=== PATIENT | male | born 1990 | race Caucasian/White ===

== ENCOUNTER 2016-11-04 18:56 | Emergency (ER) | payer SELFPAY ==
[2016-11-04] MEDS ORDERED: PENICILLIN V POTASSIUM 500 MG TABLET PO ONE (19:19)
--- NOTE | 2016-11-04 19:23 | ER Document Report ---
HPI - HPI Patient complains to provider of: sore throat, abscess Onset: Other - 4 days Onset/Duration: Persistent Quality of pain: Achy Severity: Severe Pain Level: 5 Context: Patient presents to the emergency department with complaints of sore throat and abscess under his right arm for the past 4 days. He reports that the abscess is better. His reports she squeezed it and got some drainage out of it. He reports the sore throat is worse. He reports fever of 102 yesterday no fever today but he took Tylenol at 11:00. Denies diarrhea but reports vomited once or twice this past week. Unknown exposure to strep. Associated Symptoms: Fever, Vomiting, Sore throat Exacerbated by: Denies Relieved by: Denies Similar symptoms previously: No Recently seen / treated by doctor: No - DERM Skin Color: Normal Past Medical History - General Information source: Patient - Social History Smoking Status: Current Every Day Smoker Cigarette use (# per day): Yes Chew tobacco use (# tins/day): No Frequency of alcohol use: Rare Drug Abuse: None Occupation: [employer] Lives with: Family Family History: Reviewed & Not Pertinent Patient has suicidal ideation: No Patient has homicidal ideation: No - Past Medical History Cardiac Medical History: Denies: Hx Coronary Artery Disease, Hx Hypertension Pulmonary Medical History: Reports: Hx Asthma Endocrine Medical History: Denies: Hx Diabetes Mellitus Type 1, Hx Diabetes Mellitus Type 2 Surgical Hx: Negative Past Surgical History: Denies: Hx Tonsillectomy - Immunizations Hx Diphtheria, Pertussis, Tetanus Vaccination: Yes Vertical Provider Document - CONSTITUTIONAL Agree With Documented VS: Yes Exam Limitations: No Limitations General Appearance: WD/WN, No Apparent Distress - INFECTION CONTROL TRAVEL OUTSIDE OF THE [place] IN LAST 30 DAYS: No - HEENT HEENT: Atraumatic, Normocephalic, Pharyngeal Erythema - Opens mouth wide, no peritonsillar abscess, clear voice. negative: Pharyngeal Exudate - NECK Neck: Normal Inspection, Supple, Lymphadenopathy-Left - submandibular tenderness , Lymphadenopathy-Right - RESPIRATORY Respiratory: Breath Sounds Normal, No Respiratory Distress O2 Sat by Pulse Oximetry: 96 - CARDIOVASCULAR Cardiovascular: Regular Rate - GI/ABDOMEN Gastrointestinal: Abdomen Soft - MUSCULOSKELETAL/EXTREMETIES Musculoskeletal/Extremeties: MAEW, FROM - NEURO Level of Consciousness: Awake, Alert, Appropriate Motor/Sensory: No Motor Deficit - DERM Integumentary: Warm, Dry. negative: Abscess - slight erythema under right arm with opening in the center, no swelling, no warmth, no induration Course - Re-evaluation Re-evalutation: 11/04/16 Patient was instructed on penicillin for the sore throat. He reports he was allergic to amoxicillin when he was little but is no longer allergic and has taken penicillin before without problems. He was instructed on signs and symptoms of an abscess instructed to monitor the site and return to the ER for any concerns. He verbalized understanding to all instructions. - Vital Signs Vital signs: Temp Pulse Resp BP Pulse Ox 98.2 F 99 20 170/82 H 96 11/04/16 19:01 11/04/16 19:01 11/04/16 19:01 11/04/16 19:01 11/04/16 19:01 Discharge - Discharge Clinical Impression: Sore throat, elevated blood pressure Condition: Stable Disposition: HOME, SELF-CARE Instructions: Sore Throat ([facility]), Penicillin V K ([facility]), Abscess ([facility]) Additional Instructions: *You have been evaluated for a sore throat, pharyngitis *Monitor your blood pressure. Your blood pressure was elevated today. This may be because you were anxious, in pain or because you need medication. It is important to follow up with your primary care provider for full evaluation. *Take medication as prescribed *Warm salt water gargles and throat lozenges for comfort *Change toothbrush after two days of antibiotics *Do not let anyone drink/eat after you *Good hand washing *Monitor the site under your arm for increased swelling pain redness or signs of an abscess *Follow-up with a primary care provider next week *Return to ED for worsening condition change, needs Prescriptions: Penicillin V Potassium [Penicillin Vk 500 mg Tablet] 500 mg PO BID #20 tablet Forms: Elevated Blood Pressure
[2016-11-04 20:19] VITALS: BP 149/71
== END 2016-11-04 19:46 | disposition home or self-care (01) ==
LOC: ER 18:56
DX: J02.9 Acute pharyngitis, unspecified (principal); R03.0 Elevated blood-pressure reading, without diagnosis of hypertension; L02.411 Cutaneous abscess of right axilla; F17.210 Nicotine dependence, cigarettes, uncomplicated
CPT/HCPCS: 99282

== ENCOUNTER 2016-11-26 16:21 | Emergency (ER) | payer SELFPAY ==
--- NOTE | 2016-11-26 16:52 | ER Document Report ---
ED Medical Screen (RME) - General Chief Complaint: Nausea/Vomiting/Diarrhea Stated Complaint: VOMITING,DIARRHEA Notes: Nausea vomiting diarrhea for 3 days also tachycardic. I greeted and performed a rapid initial assessment of this patient. Comprehensive ED assessment and evaluation of the patient, analysis of test results and completion of the medical decision making process will be conducted by additional ED providers. TRAVEL OUTSIDE OF THE [place] IN LAST 30 DAYS: No - Related Data Allergies/Adverse Reactions: amoxicillin [Amoxicillin] Allergy (Verified 11/04/16 19:01) Past Medical History - Past Medical History Cardiac Medical History: Denies: Hx Coronary Artery Disease, Hx Hypertension Pulmonary Medical History: Reports: Hx Asthma Endocrine Medical History: Denies: Hx Diabetes Mellitus Type 1, Hx Diabetes Mellitus Type 2 Renal/ Medical History: Denies: Hx Peritoneal Dialysis Past Surgical History: Denies: Hx Tonsillectomy - Immunizations Hx Diphtheria, Pertussis, Tetanus Vaccination: Yes
[2016-11-26] MEDS ORDERED: NORMAL SALINE INJ/PF 0.9% 10 ML SDV IV ONE (16:53)
[2016-11-26 17:30] LABS: APPEARANCE,URINE SLIGHTLY-CLOUDY; BILIRUBIN,URINE NEGATIVE (NEGATIVE); GLUCOSE, URINE NEGATIVE (NEGATIVE); KETONES,URINE NEGATIVE (NEGATIVE); LEUKOCYTE ESTERASE,URINE NEGATIVE (NEGATIVE); NITRITE,URINE NEGATIVE (NEGATIVE); PROTEIN,URINE 30 mg/dL (NEGATIVE); URINE SPECIFIC GRAVITY 1.031; UROBILINOGEN,URINE NEGATIVE mg/dL (<2.0)
[2016-11-26 17:45] LABS: ALANINE AMINOTRANSFERASE 78 U/L (21-72); ALBUMIN 4.7 g/dL (3.5-5.0); ALKALINE PHOSPHATASE 41 U/L (38-126); ANION GAP 16 (5-19); ASPARTATE AMINO TRANSFERASE 40 U/L (17-59); BILIRUBIN,TOTAL 0.9 mg/dL (0.2-1.3); BLOOD UREA NITROGEN 16 mg/dL (7-20); CARBON DIOXIDE 23 mmol/L (22-30); CHLORIDE 102 mmol/L (98-107); CREATININE RESULT 0.84 mg/dL (0.52-1.25); GLUCOSE 103 mg/dL (75-110); POTASSIUM 4.5 mmol/L (3.6-5.0); SODIUM 140.6 mmol/L (137-145)
[2016-11-26 18:05] LABS: ABSOLUTE EOSINOPHILS # (AUTO) 0.1 10^3/uL (0.0-0.6); ABSOLUTE LYMPHOCYTES (AUTO) 1.8 10^3/uL (0.5-4.7); ABSOLUTE MONOCYTES (AUTO) 1.3 10^3/uL (0.1-1.4); ABSOLUTE NEUT (AUTO) 7.1 10^3/uL (1.7-8.2); BASOPHILS % (AUTO) 0.1 % (0-2); EOSINOPHILS % (AUTO) 1.2 % (0-6); HEMATOCRIT 46.6 % (37.9-51.0); HEMOGLOBIN 15.5 g/dL (13.5-17.0); HGB HCT DIFFERENCE -0.1; LYMPHOCYTES % (AUTO) 17.7 % (13-45); MEAN CORPUSCULAR HEMOGLOBIN 27.2 pg (27.0-33.4); MEAN CORPUSCULAR HGB CONC 33.3 g/dL (32.0-36.0); MEAN CORPUSCULAR VOLUME 82 fl (80-97); MONOCYTES % (AUTO) 12.7 % (3-13); RED CELL DISTRIBUTION WIDTH 13.2 % (11.5-14.0); SEGMENTED NEUTROPHILS % (AUTO) 68.3 % (42-78); WHITE BLOOD COUNT 10.4 10^3/uL (4.0-10.5)
[2016-11-26] MEDS ORDERED: ONDANSETRON HCL INJ/PF 4 MG/2 ML SDV IV ONE (19:17)
[2016-11-26] MEDS ORDERED: LIDOCAINE 2% VISCOUS SOLN 20 ML UDCUP PO ONE (19:18)
[2016-11-26] MEDS ORDERED: MAG HYDROX/AL HYDROX/SIMETH SUSP 30 ML UDCUP PO ONE (19:18)
--- NOTE | 2016-11-26 19:18 | ER Document Report ---
ED GI/ - General Chief Complaint: Nausea/Vomiting/Diarrhea Stated Complaint: VOMITING,DIARRHEA Notes: patient is a 26 year old male p/w nausea with vomiting and diarrhea for the past 4 days. States he was in [place] and they wentout to eat, he had pork ribs. the next Am, states when his symptoms started. Patient states he has had generalized body aches over the past two days and difficulty tolerating po. admits to crmaping abdominal pain in the umbilicus region. denies any hematochezia or hematemesis Past medical history significant for anger issues which he previously been taking BuSpar for Denies any surgical history Social history admits to rare alcohol use. Former smoker but denies any drug use. No allergies TRAVEL OUTSIDE OF THE [place] IN LAST 30 DAYS: No - Related Data Allergies/Adverse Reactions: amoxicillin [Amoxicillin] Allergy (Verified 11/04/16 19:01) Past Medical History - General Information source: Patient - Social History Smoking Status: Former Smoker Family History: Reviewed & Not Pertinent Patient has suicidal ideation: No Patient has homicidal ideation: No - Past Medical History Cardiac Medical History: Denies: Hx Coronary Artery Disease, Hx Hypertension Pulmonary Medical History: Reports: Hx Asthma Endocrine Medical History: Denies: Hx Diabetes Mellitus Type 1, Hx Diabetes Mellitus Type 2 Renal/ Medical History: Denies: Hx Peritoneal Dialysis Surgical Hx: Negative Past Surgical History: Denies: Hx Tonsillectomy - Immunizations Hx Diphtheria, Pertussis, Tetanus Vaccination: Yes Review of Systems - Review of Systems Constitutional: No symptoms reported EENT: No symptoms reported Cardiovascular: No symptoms reported Respiratory: No symptoms reported Gastrointestinal: See HPI Genitourinary: No symptoms reported Male Genitourinary: No symptoms reported Musculoskeletal: No symptoms reported Skin: No symptoms reported Hematologic/Lymphatic: No symptoms reported Neurological/Psychological: No symptoms reported Physical Exam - Vital signs Vitals: Resp 20 11/26/16 18:56 - Notes Notes: PHYSICAL EXAM GENERAL: Alert, interacts well. HEAD: Normocephalic, atraumatic. EYES: Pupils equal, round, and reactive to light. Extraocular movements intact. ENT: Oral mucosa moist, tongue midline. NECK: Full range of motion. Supple. Trachea midline. LUNGS: Clear to auscultation bilaterally, no wheezes, rales, or rhonchi. No respiratory distress. HEART: Regular rate and rhythm. No murmurs, gallops, or rubs. ABDOMEN: Soft, obese, nondistended, nontender. No guarding, rebound, or rigidity.. Bowel sounds present in all 4 quadrants. EXTREMITIES: Moves all 4 extremities spontaneously. No edema, radial and dorsalis pedis pulses 2/4 bilaterally. No cyanosis. NEUROLOGICAL: Alert and oriented x3. Normal speech. PSYCH: Normal affect, normal mood. SKIN: Warm, dry, normal turgor. No rashes or lesions noted. Course - Re-evaluation Re-evalutation: 11/26/16 23:02 Patient is a 26-year-old male who is complaining of spasms as well for his vomiting or diarrhea. No evidence of GI bleed from either upper or lower tract. Patient educated on signs and symptoms to return to the emergency department otherwise encouraged to do aggressive by mouth fluid intake. - Vital Signs Vital signs: Temp Pulse Resp BP Pulse Ox 20 11/26/16 18:56 - Laboratory Result Diagrams: 11/26/16 17:10 11/26/16 17:10 Laboratory results interpreted by me: 11/26/16 11/26/16 11/26/16 17:10 17:10 17:10 RBC 5.70 H ALT 78 H Urine Protein 30 H Urine Blood SMALL H Discharge - Discharge Clinical Impression: Vomiting Qualifiers: Vomiting type: unspecified Condition: Good Disposition: HOME, SELF-CARE Additional Instructions: ABDOMINAL PAIN: There are many causes of abdominal pain. Pain can mean a serious problem requiring surgery (such as appendicitis). It can also be an innocent problem that goes away on its own (such as a viral infection). Often, time must pass to determine the cause of pain. The physician does not feel that hospitalization is necessary, at present. Things may change within the next 24 hours. Call the doctor or come back for re- examination if any problems occur, such as: (1) Pain that becomes more severe, steady, or becomes concentrated in one specific area. Also, pain that is more severe with movement or coughing. (2) Vomiting that persists or becomes more frequent. (3) Blood in the vomitus, urine, or bowel movements. Blood in the stool may have a tarry or black appearance. (4) Shaking chills or fever greater than 100 degrees F. (5) The abdomen becomes more distended or swollen. (6) Bowel movements cease. (7) Failure to improve as expected. NORMAL EXAM AND WORKUP: At this time, your examination and workup show no significant abnormality. No significant abnormal physical findings are noted. All laboratory, EKG, and imaging (x-ray, CT scans, ultrasound) studies that were ordered show no significant abnormality. Although your examination and all studies that were ordered showed no significant abnormal finding, there are no examinations and no studies that are 100% accurate. There is always the possibility that some abnormality could exist and not be detected with physical examination or within the limits and capabilities of laboratory and other studies. You should return or follow up as you were instructed on your visit today for further evaluation if your symptoms do not resolve. TORADOL INJECTION: You have been given an injection of ketorolac tromethamine (Toradol). This is an excellent, safe drug for pain control. It also has potent antiinflammatory action. You should have significant pain relief within about one hour. Toradol is not addicting and is non-sedating. It does not interfere with driving or work. Call or return if you develop itching, hives, shortness of breath, or rash. ANTINAUSEA MEDICATION: You have been given a medication to suppress nausea and vomiting. This type of medication can be given as a shot, pill, or suppository. It will usually last for many hours. Pills and shots usually last six to eight hours, suppositories last about 12 hours. For the typical illness, only one or two doses of the medication may be necessary. Mild lightheadedness may occur. This type of medicine can cause drowsiness. Do not drive or operate dangerous machinery while under its influence. Do not mix with alcohol. See your doctor at once if you have muscle spasms or tightness, or uncontrollable motions (particularly of the neck, mouth, or jaw). Persistent vomiting or severe lightheadedness should also be evaluated by the physician. FOLLOW-UP CARE: If you have been referred to a physician for follow-up care, call the physician s office for an appointment as you were instructed or within the next two days. If you experience worsening or a significant change in your symptoms, notify the physician immediately or return to the Emergency Department at any time for re-evaluation. Diarrhea Diarrhea means frequent, watery stools. There are many causes. Any problem that keeps the intestinal tract from absorbing water from the stool can lead to diarrhea. A sudden new diarrhea problem is usually caused by a virus, food sensitivity, toxic bacteria, or drugs. In this case, we expect the problem to go away soon. Testing is done only if you seem seriously ill from the diarrhea. If you have chronic diarrhea, or diarrhea that keeps coming back, we need to find out why. Chronic diarrhea can be due to inflammation of the bowels such as Crohn's disease or ulcerative colitis, food sensitivity such as intolerance to lactose or wheat protein, irritable bowel syndrome, and other problems. If your diarrhea is a significant problem but it's not clear why you have it, we' ll refer you to a specialist for further testing. During an episode of diarrhea, drink small amounts (two to six ounces) of clear liquids (soft drinks, sport drinks, herb teas, broth, etc). Take fluids frequently to prevent dehydration. It's usually not a problem to take mild anti- diarrhea medication such as Kaopectate or Pepto-Bismol. As the diarrhea eases, advance to small amounts of bland food (mashed potato, toast) for 24 hours. Call the physician if blood appears in your vomit or stool, if vomiting lasts longer than 24 hours, if the abdominal pain worsens or becomes localized to one area, if you develop high fever, or if you become lightheaded and weak. Prescriptions: Promethazine HCl [Phenergan 25 mg Tablet] 1 - 2 tab PO Q6HP PRN #15 tablet PRN Reason: Referrals: [facility] [NO LOCAL MD] - Follow up as needed
[2016-11-26] MEDS ORDERED: NORMAL SALINE 1000 ML 1,000 ML IV PRN (20:06)
[2016-11-26] MEDS ORDERED: KETOROLAC TROMETHAMINE 60 MG/2 ML SDV IM ONE (22:21)
[2016-11-26] MEDS ORDERED: KETOROLAC TROMETHAMINE INJ/PF 30 MG/1 ML SDV IV ONE (22:59)
[2016-11-26] MEDS ORDERED: NORMAL SALINE 1000 ML 1,000 ML IV ONE (23:17)
--- NOTE | 2016-11-27 02:20 | ER Document Report ---
Doctor's Note Notes: 11/27/16 02:16 I was asked to see this patient by the nurse caring for the patient due to ongoing tachycardia at time of discharge. A additional liter of fluid was ordered and patient's heart rate did improve into the low 100s. I went to assess the patient. He continues to be well in appearance, no acute distress, tolerating oral intake without difficulty. He has no focal abdominal tenderness on exam. I contacted the heart rate at the bedside myself 104. Given his ongoing well appearance, the tolerate fluids, and a clinical history most consistent with a gastritis given ongoing vomiting and diarrhea, I have agreed to discharge the patient at this time. Laboratories reviewed and noted to be unremarkable. At this time will discharge with return precautions and follow-up recommendations. Verbal discharge instructions given a the bedside and opportunity for questions given. Medication warnings reviewed. Patient is in agreement with this plan and has verbalized understanding of return precautions and the need for primary care follow-up in the next 24-72 hours.
[2016-11-27 02:22] VITALS: BP 116/62
== END 2016-11-27 02:22 | disposition home or self-care (01) ==
LOC: ER 16:21
DX: R11.2 Nausea with vomiting, unspecified (principal); R19.7 Diarrhea, unspecified; R00.0 Tachycardia, unspecified; R10.33 Periumbilical pain; J45.909 Unspecified asthma, uncomplicated; Z87.891 Personal history of nicotine dependence; Z88.0 Allergy status to penicillin; R25.2 Cramp and spasm
CPT/HCPCS: 99284; 96361; 96374; 96375; 36415; 83690; 85025; 80053; 81001; J3490; J1885; J2405; J7030

== ENCOUNTER 2017-09-29 08:45 | Emergency (ER) | payer SELFPAY ==
[2017-09-29] MEDS ORDERED: DEXAMETHASONE SOD PHOS INJ 10 MG/1 ML VIAL IM ONE (09:43)
[2017-09-29] MEDS ORDERED: LIDOCAINE 5% (700 MG) TRANSDERMAL ADH..PATCH TP ONE (09:43)
[2017-09-29] MEDS ORDERED: METHOCARBAMOL 750 MG TABLET PO ONE (09:43)
[2017-09-29] MEDS ORDERED: KETOROLAC TROMETHAMINE 60 MG/2 ML SDV IM ONE (09:43)
--- NOTE | 2017-09-29 09:45 | ER Document Report ---
ED Neck/Back Problem - General Chief Complaint: Back Pain Stated Complaint: BACK PAIN Time Seen by Provider: 09/29/17 09:08 Mode of Arrival: Ambulatory Information source: Patient Notes: 27-year-old male presents to ED for complaint of back pain 2-3 months. States 2 days ago he was lifting a heavy object and he felt a strong pull in his back and the pain is worse. States he has been taking ibuprofen with no relief. Last dose was yesterday. He states he has pain running down both legs right sometimes today at the left. He states sometimes he has very bad pain on the bottoms of feet feels like the spikes in his back. He denies any saddle anesthesia, any loss of bowel or bladder control, any loss of sensation to the legs, no loss control of his legs, he has no cauda equina symptoms. He states he had a x-ray and [place] a couple months ago and they told him there was nothing going on. They did give him some anti-inflammatories and some muscle relaxants which he states does not do any good. 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 TRAVEL OUTSIDE OF THE [place] IN LAST 30 DAYS: No - HPI Patient complains to provider of: Pain, Lower back Onset: Other - 2-3 months worse 2-3 days ago Where: Outdoors, Work Onset: Chronic Timing: Waxing and waning Quality of pain: Sharp Severity: Severe Pain Level: 5 Context: Lifting Recent injury: Possibly Associated symptoms: Like prior neck/back pain, Radiation to leg, Lower back pain. denies: Constipation, Fever, Incontinence, Motor loss, Numbness/tingling , Sensory loss, Sweaty, Unable to urinate Exacerbated by: Movement of trunk Relieved by: Nothing Similar symptoms previously: Yes Recently seen / treated by doctor: Yes - Related Data Allergies/Adverse Reactions: amoxicillin [Amoxicillin] Allergy (Verified 09/29/17 08:46) Home Medications: Current Home Medications Ibuprofen 200 mg PO PRN PRN 09/29/17 [History] Past Medical History - General Information source: Patient - Social History Smoking Status: Former Smoker Cigarette use (# per day): No Chew tobacco use (# tins/day): No Smoking Education Provided: No Frequency of alcohol use: Occasional Drug Abuse: None Occupation: [employer] Lives with: Spouse/Significant other Family History: Arthritis, DM, Hypertension, Malignancy. 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, Reports Hx Musculoskeletal Deformity Skin Medical History: Reports None Psychiatric Medical History: Reports: Other - Anger issues Traumatic Medical History: Reports: None Infectious Medical History: Reports: None Surgical Hx: Negative Past Surgical History: Reports: None - Immunizations Hx Diphtheria, Pertussis, Tetanus Vaccination: Yes Review of Systems - Review of Systems Constitutional: No symptoms reported EENT: No symptoms reported Cardiovascular: No symptoms reported Respiratory: No symptoms reported Gastrointestinal: No symptoms reported Genitourinary: No symptoms reported Male Genitourinary: No symptoms reported Musculoskeletal: Back pain, Muscle pain, Muscle stiffness Skin: No symptoms reported Hematologic/Lymphatic: No symptoms reported Neurological/Psychological: No symptoms reported -: Yes All other systems reviewed and negative Physical Exam - Vital signs Vitals: Temp Pulse Resp BP Pulse Ox 97.8 F 86 16 147/79 H 98 09/29/17 08:52 09/29/17 08:52 09/29/17 08:52 09/29/17 08:52 09/29/17 08:52 Interpretation: Normal - General General appearance: Appears well, Alert - HEENT Head: Normocephalic, Atraumatic Eyes: Normal Pupils: PERRL - Respiratory Respiratory status: No respiratory distress Chest status: Nontender Breath sounds: Normal Chest palpation: Normal - Cardiovascular Rhythm: Regular Heart sounds: Normal auscultation Murmur: No - Abdominal Inspection: Normal Distension: No distension Bowel sounds: Normal Tenderness: Nontender Organomegaly: No organomegaly - Back Back: Normal, Tender. No: Deformity/step-off, CVA tenderness, Vertebra tenderness, Scars, Scoliosis, Wounds - Extremities General upper extremity: Normal inspection, Nontender, Normal color, Normal ROM , Normal temperature General lower extremity: Normal inspection, Nontender, Normal color, Normal ROM , Normal temperature, Normal weight bearing. No: Jesika's sign - Neurological Neuro grossly intact: Yes Cognition: Normal Orientation: AAOx4 Oxford Coma Scale Eye Opening: Spontaneous Oxford Coma Scale Verbal: Oriented Oxford Coma Scale Motor: Obeys Commands Samina Coma Scale Total: 15 Speech: Normal Motor strength normal: LUE, RUE, LLE, RLE Sensory: Normal - Psychological Associated symptoms: Normal affect, Normal mood - Skin Skin Temperature: Warm Skin Moisture: Dry Skin Color: Normal Course - Re-evaluation Re-evalutation: 09/29/17 10:06 Patient is able to walk with a steady gait speak in full sentences pupils equal and reactive light. Patient denies any loss of control of bowel bladder or loss of control of limbs. Patient has no saddle anesthesia and no loss of sedation to the legs. Patient has no symptoms of cauda equina. Patient denies any fevers. Patient states that the pain is not so much when you press on his back is it is inside when he moves he does have some tenderness to palpation. He does have some sciatica down his left leg at this time. Patient was treated with Toradol Decadron lidocaine patch and Robaxin and discharged home with prescription for Robaxin and instructions to follow-up with a back specialist he was also given a list of the local primary doctors. - Vital Signs Vital signs: Temp Pulse Resp BP Pulse Ox 97.8 F 86 16 147/79 H 98 09/29/17 08:52 09/29/17 08:52 09/29/17 08:52 09/29/17 08:52 09/29/17 08:52 Discharge - Discharge Clinical Impression: Back pain Qualifiers: Back pain location: low back pain Chronicity: unspecified Back pain laterality : bilateral Sciatica presence: with sciatica Sciatica laterality: bilateral sciatica Qualified Code(s): M54.42 - Lumbago with sciatica, left side Condition: Stable Disposition: HOME, SELF-CARE Instructions: Family Physicians / Practices Additional Instructions: LOW BACK PAIN: Three out of every four people will have an episode of disabling back pain during their lifetime. Most commonly the pain is due to straining of the muscles and ligaments in the low back. Usual treatment includes: (1) Rest on a firm surface. Avoid lying on your stomach. (2) Ice pack the painful area. After a few days, gentle heat may be used intermittently to relax the area, or ice packs can be continued. (3) Medication may be needed -- muscle relaxers and antiinflammatory medicines are commonly used. (4) As the back improves, exercises are prescribed to strengthen the back and abdominal muscles. Your doctor will advise you on the proper care for your back at each stage in your recovery. You may be better in a few days -- or healing may take several weeks. If new symptoms of a "herniated disc" (radiation of pain, numbness, or tingling down the back of the leg or weakness in the leg) occur, you should be re-examined. Further testing may be necessary. ORAL NARCOTIC MEDICATION: You have been given a [employer] dispense pack for pain control. This medication is a narcotic. It's best taken with food, as nausea can result if taken on an empty stomach. Don't operate machinery or drive within six hours of taking this medication. Do not combine this medicine with alcohol, or with any medication which can cause sedation (such as cold tablets or sleeping pills) unless you get permission from the physician. Narcotics tend to cause constipation. If possible, drink plenty of fluids and eat a diet high in fiber and fruits. Please be aware that prescription narcotics also have the potential for abuse. People become addicted to these medications because of the general sense of wellbeing that they induce. This feeling along with a significant reduction in tension, anxiety, and aggression provides a stimulating seductive quality to these drugs. Once your pain is under control, we encourage you to discard your unused narcotics. MUSCLE RELAXERS: Muscle relaxing medications are usually prescribed for acute muscle spasm or injury to the neck and back. They are often combined with antiinflammatory pain medication for increased relief. You may stop the muscle relaxer when the pain and stiffness have improved. Start the medication again if spasms recur. Muscle relaxers may cause drowsiness, especially with the first dose. Do not operate machinery or drive while under the effects of the medication. Most muscle relaxers last up to 24 hours. Do not combine the medication with alcohol. ICE PACKS: Apply ice packs frequently against the painful area. Many different schedules are recommended, such as "20 minutes on, 20 minutes off" or "one hour ice, two hours rest." If you need to work, you may need to go longer between ice treatments. You should plan to have the area ice packed AT LEAST one fourth of the time. The ice should be applied over the wrap, tape, or splint, or over a layer of cloth -- not directly against the skin. Some ice bags have a built-in cloth and can be put directly on the skin. WARM PACKS: After approximately two days, apply gentle heat (such as a heating pad or hot water bottle) for about 20 to 30 minutes about every two hours -- at least four times daily. Warmth and elevation will help you make a more rapid recovery , and will ease the pain considerably. Do not use HOT heat, and never apply heat for longer than 30 minutes. The continuous heat can invisibly damage skin and muscles -- even when no burn is seen on the surface. Damaged muscles can make you MORE sore. Toradol Injection You have been given an injection of ketorolac tromethamine (Toradol). This is an excellent, safe drug for pain control. It also has potent antiinflammatory action. You should have significant pain relief within about one hour. Toradol is not addicting and is non-sedating. It does not interfere with driving or work. Call or return if you develop itching, hives, shortness of breath, or rash. STEROID MEDICATION: You have been given an injection of medicine of the cortisone/steroid class. This medication is used to control inflammation or allergy. It is often continued as a pill for a short period of time, until the acute process subsides. There are usually no side effects from short-term use of cortisone-like medications. Some persons feel an increased sense of well-being and are not sleepy at bedtime. Long-term use of cortisone medications is best avoided, unless required for a severe condition. If your condition does not remit, or relapses after the course of corticosteroid medication, you should consult your physician. Stretching Exercises for the Back The physician has recommended that you begin stretching exercises for your back. These are often used even while the back is painful. However, you should notify the physician if the activities seem to increase your pain. PELVIC TILT: Lie flat on your back with knees bent. Tighten your stomach and buttock muscles so it flattens your lower back against the floor. Hold 10 seconds. Repeat 10 times, twice daily. KNEE RAISE: Lying on the back with knees bent, raise one knee to your chest, then the other. Hold both knees against the chest 10 seconds, then lower one knee at a time. Repeat 10 times, twice daily. PARTIAL TRUNK RAISE: Lie face down, arms at your sides. Keeping your waist on the floor, use your arms raise your chest up. Support yourself on your elbows for 30 seconds. Repeat twice daily, increasing the time to two minutes as you recover. FOLLOW-UP CARE: If you have been referred to a physician for follow-up care, call the physician s office for an appointment as you were instructed or within the next two days. If you experience worsening or a significant change in your symptoms, notify the physician immediately or return to the Emergency Department at any time for re-evaluation. Prescriptions: Methocarbamol [Robaxin 750 mg Tablet] 750 mg PO TIDP PRN #20 tablet PRN Reason: Forms: Elevated Blood Pressure, Return to Work Referrals: WILLIE MAURO MD [ASSOCIATE] - Follow up as needed
[2017-09-29 10:16] VITALS: BP 151/71
== END 2017-09-29 09:36 | disposition home or self-care (01) ==
LOC: ER 08:45
DX: M54.42 Lumbago with sciatica, left side (principal); M54.41 Lumbago with sciatica, right side; J45.909 Unspecified asthma, uncomplicated; Z88.0 Allergy status to penicillin; Z87.891 Personal history of nicotine dependence
CPT/HCPCS: 99283; 96372; J1885; J3490; J1100

== ENCOUNTER 2018-01-22 20:19 | Emergency (ER) | payer SELFPAY ==
[2018-01-22] MEDS ORDERED: DIAZEPAM INJ 10 MG/2 ML DISP.SYRIN IM ONE (22:09)
--- NOTE | 2018-01-22 22:12 | ER Document Report ---
ED General - General Chief Complaint: Pain All Over Stated Complaint: BODY PAIN Time Seen by Provider: 01/22/18 21:55 Notes: Patient is a 27-year-old male that comes emergency department for chief complaint of back pain, knee pain, ankle pain. He states pain is ongoing and at times it is so bad that he almost cannot walk. He states he used to have a lot of knee problems with sports and had injections in his knees in the past but he never had ankle pain or back pain to this point. He denies fever, night sweats, joint surgeries, IV drug abuse. He states he is to be on Mobic for this but stopped because it did not seem to help. He denies any other medical history. TRAVEL OUTSIDE OF THE [place] IN LAST 30 DAYS: No - Related Data Allergies/Adverse Reactions: amoxicillin [Amoxicillin] Allergy (Verified 09/29/17 08:46) Past Medical History - General Information source: Patient - Social History Smoking Status: Never Smoker Frequency of alcohol use: None Drug Abuse: None Lives with: Family Family History: Arthritis, DM, Hypertension, Malignancy. 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, Reports Hx Musculoskeletal Deformity Surgical Hx: Negative Past Surgical History: Denies: Hx Tonsillectomy - Immunizations Hx Diphtheria, Pertussis, Tetanus Vaccination: Yes Review of Systems - Review of Systems Constitutional: No symptoms reported EENT: No symptoms reported Cardiovascular: No symptoms reported Respiratory: No symptoms reported Gastrointestinal: No symptoms reported Genitourinary: No symptoms reported Male Genitourinary: No symptoms reported Musculoskeletal: See HPI Skin: No symptoms reported Hematologic/Lymphatic: No symptoms reported Neurological/Psychological: No symptoms reported Physical Exam - Vital signs Vitals: Temp Pulse Resp BP Pulse Ox 98.6 F 109 H 18 154/82 H 97 01/22/18 21:22 01/22/18 21:22 01/22/18 21:22 01/22/18 21:22 01/22/18 21:22 - General General appearance: Appears well, Alert In distress: None - HEENT Head: Normocephalic, Atraumatic Eyes: Normal Conjunctiva: Normal Eyelashes: Normal Pupils: PERRL Mouth/Lips: Normal Mucous membranes: Normal Pharynx: Normal Neck: Normal - Respiratory Respiratory status: No respiratory distress Breath sounds: Normal. No: Decreased air movement, Wheezing - Cardiovascular Rhythm: Regular. No: Tachycardia - no tachycardia on my exam Heart sounds: Normal auscultation, S1 appreciated, S2 appreciated - Abdominal Inspection: Normal Tenderness: Nontender. No: Tender, Guarding - Back Back: Tender - Tenderness at the midline and bilateral paralumbar musculature with rigid muscles, no signs of trauma, no saddle anesthesia, normal upper and lower extremity range of motion, normal distal neurovascular exam. - Extremities General upper extremity: Normal inspection, Nontender, Normal ROM, Normal strength, Normal temperature General lower extremity: Other - Tender with palpation generally over both knees and both ankles, no overt swelling, with range of motion of the knee I can feel cracking within the knee joint, no erythema or abnormal heat to the area, full range of motion of all extremities and joints, normal distal neurovascular exam. Patient able to walk but appears uncomfortable. - Neurological Neuro grossly intact: Yes Cognition: Normal Orientation: AAOx4 [place] Coma Scale Eye Opening: Spontaneous Samina Coma Scale Verbal: Oriented [place] Coma Scale Motor: Obeys Commands [place] Coma Scale Total: 15 Speech: Normal Cranial nerves: Normal Cerebellar coordination: Normal Motor strength normal: LUE, RUE, LLE, RLE Additional motor exam normals: Equal programmer numerical control Sensory: Normal - Skin Skin Temperature: Warm Skin Moisture: Dry Skin Color: Normal Course - Re-evaluation Re-evalutation: Patient is persistent in wanting to be checked for possible autoimmune disorder , he does have bilateral joint pains, he does not have any specific joint swelling, he has very large in stature and he is also obese. He has grinding in his knees consistent with arthritis, his ankle joints are unremarkable, he does have midline back pain along with bilateral lumbar pain. X-ray unremarkable. No neurological deficits or concerning reported symptoms for back pain. Patient will be provided with muscle relaxers for this. Discussed weight loss, exercises to improve knee joints, recommendations, follow -up. Autoimmune panel pending and I explained that he will asked to follow-up with primary care in rheumatology if this is positive for management because this is in the emergency department. Patient states agreement, states he still wants the tests done. Discussed return precautions, patient and state understanding and agreement. - Vital Signs Vital signs: Temp Pulse Resp BP Pulse Ox 97.8 F 95 22 H 142/68 H 97 01/23/18 00:57 01/23/18 00:57 01/23/18 00:57 01/23/18 00:57 01/23/18 00:57 - Laboratory Result Diagrams: 01/22/18 22:37 01/22/18 23:10 Discharge - Discharge Clinical Impression: Lower back pain Qualifiers: Chronicity: acute Back pain laterality: bilateral Sciatica presence: without sciatica Qualified Code(s): M54.5 - Low back pain Joint pain Qualifiers: Joint pain location: unspecified Qualified Code(s): M25.50 - Pain in unspecified joint Condition: Stable Disposition: HOME, SELF-CARE Additional Instructions: Your x-ray of the back does not show any concerning abnormalities. Your complete blood counts and chemistries are normal. Remaining workup is pending. Recommendation is to take the muscle relaxer as prescribed to help with the spasms and pain in your back, take the anti-inflammatory as prescribed for your needs and ankles, wear supportive shoes, begin exercises to strengthen your thighs to improve your knee joints, and improve food portions and choices to begin losing weight. Follow-up with the primary care referral for additional evaluation and management. Return the emergency department for any concerning or worsening symptoms including swelling, fever, numbness, incontinence, or any other concerning or worsening symptoms. Prescriptions: Methocarbamol [Robaxin 750 mg Tablet] 750 mg PO Q6 #20 tablet Naproxen 500 mg PO BID PRN #20 tablet PRN Reason: Referrals: [facility] [Provider Group] - Follow up as needed
[2018-01-22 22:53] LABS: ABSOLUTE BASOPHILS # (AUTO) 0.1 10^3/uL (0.0-0.2); ABSOLUTE EOSINOPHILS # (AUTO) 0.4 10^3/uL (0.0-0.6); ABSOLUTE NEUT (AUTO) 5.5 10^3/uL (1.7-8.2); EOSINOPHILS % (AUTO) 3.6 % (0-6); HEMATOCRIT 43.6 % (37.9-51.0); HEMOGLOBIN 14.6 g/dL (13.5-17.0); LYMPHOCYTES % (AUTO) 30.4 % (13-45); MEAN CORPUSCULAR HEMOGLOBIN 27.4 pg (27.0-33.4); MEAN CORPUSCULAR HGB CONC 33.5 g/dL (32.0-36.0); MEAN CORPUSCULAR VOLUME 82 fl (80-97); MONOCYTES % (AUTO) 10.2 % (3-13); PLATELET COUNT 343 10^3/uL (150-450); RED BLOOD COUNT 5.35 10^6/uL (4.35-5.55); SEGMENTED NEUTROPHILS % (AUTO) 54.8 % (42-78); TOTAL CELLS COUNTED % (AUTO) 100 %
[2018-01-22 23:35] LABS: ANION GAP 13 (5-19); BLOOD UREA NITROGEN 12 mg/dL (7-20); CALCIUM 9.9 mg/dL (8.4-10.2); CARBON DIOXIDE 27 mmol/L (22-30); CHLORIDE 102 mmol/L (98-107); GLUCOSE 105 mg/dL (75-110); POTASSIUM 4.1 mmol/L (3.6-5.0); SODIUM 141.6 mmol/L (137-145)
--- NOTE | 2018-01-22 23:44 | RADIOLOGY REPORT (SQ) ---
EXAM DESCRIPTION: L SPINE WHOLE CLINICAL HISTORY: 27 years, Male, ongoing midline pain COMPARISON: None. NUMBER OF VIEWS: 5 Findings: Normal alignment and curvature of the lumbar spine. Vertebral and intervertebral heights are maintained. Extraspinal structures are grossly intact. IMPRESSION: No acute findings.
[2018-01-22] MEDS ORDERED: HYDROCODONE/ACETAMINOPHEN 5-325 MG (6 TAB/ER DISP) PO PRN (23:55)
[2018-01-23 00:59] VITALS: BP 142/68
[2018-01-24 13:38] LABS: ANTICHROMATIN AB <0.2 AI (0.0-0.9); CENTROMERE B AB <0.2 AI (0.0-0.9); JO-1 ANTIBODY (ANACOMP) <0.2 AI (0.0-0.9); RNP AB <0.2 AI (0.0-0.9); SCLERODERMA-70 ANTIBODIES <0.2 AI (0.0-0.9); SJOGREN'S ANTI-SS-B AB 0.3 AI (0.0-0.9); SJOGREN'S SS-A ANTIBODY <0.2 AI (0.0-0.9); SMITH AB ANA <0.2 AI (0.0-0.9)
[2018-01-24 13:55] LABS: DNA DOUBLE STRAND ANTIBODY ANA 1 IU/mL (0-9)
== END 2018-01-23 00:59 | disposition home or self-care (01) ==
LOC: ER 20:19
DX: M54.5 Low back pain (principal); M25.571 Pain in right ankle and joints of right foot; M25.572 Pain in left ankle and joints of left foot; M25.561 Pain in right knee; M25.562 Pain in left knee; E66.9 Obesity, unspecified; Z68.42 Body mass index [BMI] 45.0-49.9, adult; J45.909 Unspecified asthma, uncomplicated; Z88.0 Allergy status to penicillin
CPT/HCPCS: 99283; 96372; 36415; 85025; 80048; 86225; 86235 ×8; 72110; J3360

== ENCOUNTER 2018-05-15 08:10 | Emergency (ER) | payer SELFPAY ==
[2018-05-15] MEDS ORDERED: OXYCODONE-ACETAMINOPHEN 5-325 MG TABLET PO ONE ×2 (08:39→10:48)
--- NOTE | 2018-05-15 08:41 | ER Document Report ---
HPI - HPI Patient complains to provider of: Cyst Onset: Last week Onset/Duration: Persistent Quality of pain: Achy Pain Level: 4 Context: Patient complains of cyst of the neck for the past week. Patient states that he went to an urgent care 3 days ago and was placed on a 3 day course of Bactrim. Patient states that he feels as though the area is abscess and needs to be drained. Associated Symptoms: Other - Neck tenderness Exacerbated by: Movement Relieved by: Denies Similar symptoms previously: Yes Recently seen / treated by doctor: No - ROS ROS below otherwise negative: Yes Systems Reviewed and Negative: Yes All other systems reviewed and negative - CONSTITUTIONAL Constitutional: DENIES: Fever, Chills - NEURO Neurology: DENIES: Headache - MUSCULOSKELETAL Musculoskeletal: REPORTS: Neck Pain - DERM Skin Color: Erythema Past Medical History - General Information source: Patient - Social History Smoking Status: Current Every Day Smoker Smoking Education Provided: Yes Frequency of alcohol use: None Drug Abuse: None Occupation: IT Family History: Arthritis, DM, Hypertension, Malignancy. denies: CAD, COPD, CVA , Hyperlipidemia, Thyroid Disfunction - Past Medical History Cardiac Medical History: Denies: Hx Coronary Artery Disease, Hx Hypertension Pulmonary Medical History: Reports: Hx Asthma, Hx Bronchitis Endocrine Medical History: Denies: Hx Diabetes Mellitus Type 1, Hx Diabetes Mellitus Type 2 Renal/ Medical History: Denies: Hx Peritoneal Dialysis Musculoskeletal Medical History: Reports Hx Arthritis - osteoarthritis to bilateral knees, Reports Hx Musculoskeletal Deformity Past Surgical History: Reports: Other - Abscess. Denies: Hx Tonsillectomy - Immunizations Hx Diphtheria, Pertussis, Tetanus Vaccination: Yes Vertical Provider Document - CONSTITUTIONAL Agree With Documented VS: Yes Exam Limitations: No Limitations General Appearance: WD/WN, No Apparent Distress - INFECTION CONTROL TRAVEL OUTSIDE OF THE [place] IN LAST 30 DAYS: No - HEENT HEENT: Atraumatic, Normocephalic - NECK Neck: Supple, Other - Posterior right sided neck tenderness, patient with mild erythema along skin fold area. negative: Lymphadenopathy-Left, Lymphadenopathy- Right - RESPIRATORY Respiratory: Breath Sounds Normal, No Respiratory Distress - CARDIOVASCULAR Cardiovascular: Regular Rate, Regular Rhythm - BACK Back: Normal Inspection - MUSCULOSKELETAL/EXTREMETIES Musculoskeletal/Extremeties: MAEW - NEURO Level of Consciousness: Awake, Alert, Appropriate Motor/Sensory: No Motor Deficit - DERM Integumentary: Warm, Dry Notes: Tender indurated area to right posterior neck Course - Vital Signs Vital signs: Temp Pulse Resp BP Pulse Ox 98.5 F 93 14 144/80 H 98 05/15/18 08:16 05/15/18 08:16 05/15/18 08:16 05/15/18 08:16 05/15/18 08:16 Procedures - Incision and Drainage Right Neck Type: Simple Anesthetic type: 1% Lidocaine Blade size: 11 I&D procedure: Betadine prep applied Incision Method: Incision made by scalpel Amount/type of drainage: small amount of purulent drainage Adult Head Front/Back picture: 1 - abscess Discharge - Discharge Clinical Impression: Neck abscess Condition: Stable Disposition: HOME, SELF-CARE Instructions: Abscess ([facility]), Cephalexin ([facility]), Oral Narcotic Medication ([facility]), Post Incision and Drainage Additional Instructions: Return immediately for any new or worsening symptoms Followup with your primary care provider, call tomorrow to make a followup appointment Continue to take bactrim as prescribed Prescriptions: Cephalexin Monohydrate [Keflex 500 mg Capsule] 500 mg PO Q6H 5 Days capsule Oxycodone HCl/Acetaminophen [Percocet 5-325 mg Tablet] 1 tab PO ASDIR PRN #8 tablet PRN Reason: Sulfamethoxazole/Trimethoprim [Bactrim Ds Tablet] 1 each PO BID #14 tablet Forms: Smoking Cessation Education, Return to Work Referrals: [facility] [Provider Group] - Follow up as needed
--- NOTE | 2018-05-15 09:43 | RADIOLOGY REPORT (SQ) ---
EXAM DESCRIPTION: U/S THYROID/SFT TISS HD NECK COMPLETED DATE/TIME: 05/15/2018 9:35 am REASON FOR STUDY: posterior neck, ?abscess COMPARISON: None. TECHNIQUE: Dynamic and static dumont-scale images acquired of the posterior neck soft tissues. Selecte d additional color/power Doppler images recorded. All images stored to PACS. LIMITATIONS: None. FINDINGS: Just deep to the skin surface, a hypoechoic irregularly-shaped fluid collection is present , 2.8 x 1.8 x 0.8 cm in size likely a small subcutaneous abscess. Minimal increased peripheral color flow. IMPRESSION: Subcutaneous abscess posterior right neck soft tissues, 2.8 x 1.8 x 0.8 cm in size TECHNICAL DOCUMENTATION: JOB ID: [id number] [employer]- All Rights Reserved Reading location - IP/workstation name: [email or web address]
[2018-05-15 11:16] VITALS: BP 151/68
== END 2018-05-15 11:16 | disposition home or self-care (01) ==
LOC: ER 08:10
PROC: 0H94XZZ Drainage of Neck Skin, External Approach (ICD-10-PCS; principal; 2018-05-15)
DX: L02.11 Cutaneous abscess of neck (principal); F17.200 Nicotine dependence, unspecified, uncomplicated
CPT/HCPCS: 76536; 99284

== ENCOUNTER 2018-06-15 23:29 | Emergency (ER) | payer SELFPAY ==
--- NOTE | 2018-06-16 00:52 | ER Document Report ---
ED General - General Chief Complaint: Toothache Stated Complaint: TOOTH PAIN Time Seen by Provider: 06/16/18 00:46 Notes: Patient presents with dental pain in his bottom right lower jaw that started yesterday has become progressively worse. Denies any traumas or falls. Denies any tooth injury while eating. He does have bad patient he has tried dental wax to plug the hole in his tooth without success. Denies any fevers or chills. This pain radiates from his tooth into the mandible of his jaw but he denies any chest pain shortness of breath or any history of heart attack or stroke. He denies being diabetic states he has been tested for this and has been negative. TRAVEL OUTSIDE OF THE [place] IN LAST 30 DAYS: No - Related Data Allergies/Adverse Reactions: amoxicillin [Amoxicillin] Allergy (Verified 06/15/18 23:36) Past Medical History - Social History Smoking Status: Former Smoker Frequency of alcohol use: None Drug Abuse: None Family History: Arthritis, DM, Hypertension, Malignancy. 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 Denies: Hx Tonsillectomy - Immunizations Hx Diphtheria, Pertussis, Tetanus Vaccination: Yes Review of Systems - Review of Systems Constitutional: No symptoms reported EENT: See HPI Cardiovascular: No symptoms reported Respiratory: No symptoms reported Gastrointestinal: No symptoms reported Genitourinary: No symptoms reported Male Genitourinary: No symptoms reported Musculoskeletal: No symptoms reported Skin: No symptoms reported Hematologic/Lymphatic: No symptoms reported Neurological/Psychological: No symptoms reported Physical Exam - Vital signs Vitals: Temp Pulse Resp BP Pulse Ox 98.7 F 95 17 152/78 H 99 06/15/18 23:50 06/15/18 23:50 06/15/18 23:50 06/15/18 23:50 06/15/18 23:50 - HEENT Head: Normocephalic, Atraumatic Mucous membranes: Normal, Other - No evidence of gingival abscess on exam but patient does exhibit pain when pushing on second molar right lower aspect of jaw. Teeth diagram: 1 - pain Pharynx: Normal - Respiratory Respiratory status: No respiratory distress Chest status: Nontender Breath sounds: Normal. No: Rales, Stridor, Wheezing - Cardiovascular Rhythm: Regular Heart sounds: Normal auscultation Murmur: No Course - Re-evaluation Re-evalutation: 06/16/18 00:50 Pain is reproducible with palpation do not feel this is jaw pain and tooth pain associated with extrinsic factors. Patient does have poor dentition and multiple dental caries. Provided dental sheet that has a list of dental facilities that can help with his reevaluation next week. Will provide shot of Toradol, anti-inflammatories, and 10 day course of clindamycin. Return precautions provided. - Vital Signs Vital signs: Temp Pulse Resp BP Pulse Ox 98.7 F 95 17 152/78 H 99 06/15/18 23:50 06/15/18 23:50 06/15/18 23:50 06/15/18 23:50 06/15/18 23:50 Discharge - Discharge Clinical Impression: Tooth pain Condition: Fair Disposition: HOME, SELF-CARE Instructions: Clindamycin ([facility]), Toothache ([facility]) Additional Instructions: Please follow-up with dentistry next week with the sheet provided to you jesus. Prescriptions: Clindamycin HCl 300 mg PO QID 10 Days #40 capsule Naproxen 500 mg PO BID PRN #20 tablet PRN Reason:
[2018-06-16] MEDS ORDERED: KETOROLAC TROMETHAMINE 60 MG/2 ML SDV IM ONE (00:53)
[2018-06-16] MEDS ORDERED: CLINDAMYCIN HCL 150 MG CAPSULE PO ONE (00:53)
[2018-06-16 00:58] VITALS: BP 149/82
== END 2018-06-16 01:07 | disposition home or self-care (01) ==
LOC: ER 23:29
DX: K08.89 Other specified disorders of teeth and supporting structures (principal); R68.84 Jaw pain; J45.909 Unspecified asthma, uncomplicated; Z88.0 Allergy status to penicillin; Z87.891 Personal history of nicotine dependence
CPT/HCPCS: 99283; 96372; J1885

== ENCOUNTER 2018-10-14 08:33 | Emergency (ER) | payer SELFPAY ==
[2018-10-14] MEDS ORDERED: MORPHINE SULFATE 10 MG/ML INJ IV ONE (09:25)
[2018-10-14] MEDS ORDERED: NORMAL SALINE 1000 ML 1,000 ML IV ONE (10:00)
[2018-10-14 10:41] LABS: ABSOLUTE BASOPHILS # (AUTO) 0.1 10^3/uL (0.0-0.2); ABSOLUTE EOSINOPHILS # (AUTO) 0.2 10^3/uL (0.0-0.6); ABSOLUTE LYMPHOCYTES (AUTO) 2.2 10^3/uL (0.5-4.7); ABSOLUTE MONOCYTES (AUTO) 0.7 10^3/uL (0.1-1.4); ABSOLUTE NEUT (AUTO) 5.1 10^3/uL (1.7-8.2); BASOPHILS % (AUTO) 0.8 % (0-2); EOSINOPHILS % (AUTO) 2.4 % (0-6); HEMATOCRIT 40.6 % (37.9-51.0); HEMOGLOBIN 13.9 g/dL (13.5-17.0); LYMPHOCYTES % (AUTO) 26.4 % (13-45); MEAN CORPUSCULAR HEMOGLOBIN 27.5 pg (27.0-33.4); MEAN CORPUSCULAR HGB CONC 34.4 g/dL (32.0-36.0); MEAN CORPUSCULAR VOLUME 80 fl (80-97); MONOCYTES % (AUTO) 8.3 % (3-13); PLATELET COUNT 315 10^3/uL (150-450); RED BLOOD COUNT 5.07 10^6/uL (4.35-5.55); RED CELL DISTRIBUTION WIDTH 13.1 % (11.5-14.0); SEGMENTED NEUTROPHILS % (AUTO) 62.1 % (42-78); TOTAL CELLS COUNTED % (AUTO) 100 %; WHITE BLOOD COUNT 8.2 10^3/uL (4.0-10.5)
[2018-10-14 11:08] LABS: ALANINE AMINOTRANSFERASE 55 U/L (21-72); ALBUMIN 3.9 g/dL (3.5-5.0); ALKALINE PHOSPHATASE 75 U/L (38-126); ANION GAP 9 (5-19); ASPARTATE AMINO TRANSFERASE 43 U/L (17-59); BILIRUBIN,DIRECT 0.4 mg/dL (0.0-0.4); BILIRUBIN,TOTAL 0.6 mg/dL (0.2-1.3); BLOOD UREA NITROGEN 11 mg/dL (7-20); CALCIUM 9.2 mg/dL (8.4-10.2); CARBON DIOXIDE 26 mmol/L (22-30); CHLORIDE 102 mmol/L (98-107); GLUCOSE 219 mg/dL (75-110); LIPASE 87.5 U/L (23-300); POTASSIUM 4.9 mmol/L (3.6-5.0); SODIUM 136.7 mmol/L (137-145); TOTAL PROTEIN 7.1 g/dL (6.3-8.2)
[2018-10-14 11:35] LABS: APPEARANCE,URINE CLEAR; BILIRUBIN,URINE NEGATIVE (NEGATIVE); COLOR,URINE YELLOW; GLUCOSE, URINE 150 mg/dL (NEGATIVE); KETONES,URINE NEGATIVE (NEGATIVE); LEUKOCYTE ESTERASE,URINE NEGATIVE (NEGATIVE); NITRITE,URINE NEGATIVE (NEGATIVE); PROTEIN,URINE NEGATIVE (NEGATIVE); URINE SPECIFIC GRAVITY 1.018; UROBILINOGEN,URINE NEGATIVE mg/dL (<2.0)
--- NOTE | 2018-10-14 12:47 | RADIOLOGY REPORT (SQ) ---
EXAM DESCRIPTION: CT ABD/PELVIS WITH IV ONLY COMPLETED DATE/TIME: 10/14/2018 12:31 pm REASON FOR STUDY: lower abdominal pain, hx of abscess; eval for abscess COMPARISON: None. TECHNIQUE: CT scan of the abdomen and pelvis performed using helical scanning technique with dynamic intravenous contrast injection. No oral contrast. Images reviewed with lung, soft tissue, and bone windows. Reconstructed coronal and sagittal MPR images reviewed. Delayed images for evaluation of the urinary system also acquired. All images stored on PACS. All CT scanners at this facility use dose modulation, iterative reconstruction, and/or weight based d osing when appropriate to reduce radiation dose to as low as reasonably achievable (ALARA). [facility]: Dose Right [facility]: CareDose [facility]: Dose Right [facility]: Teradose 4D [facility]: Payfone CONTRAST TYPE AND DOSE: contrast/concentration: Isovue 350.00 mg/ml; Total Contrast Delivered: 100.0 ml; Total Saline Delivered: 72.0 ml RENAL FUNCTION: Creatinine 0.65 RADIATION DOSE: CT Rad equipment meets quality standard of care and radiation dose reduction techniq ues were employed. CTDIvol: NaN - NaN mGy. DLP: 0 mGy-cm.. LIMITATIONS: None. FINDINGS: LOWER CHEST: No significant findings. No nodules or infiltrates. LIVER: Normal size. No masses. No dilated ducts. There is diffuse fatty infiltration of the liver. SPLEEN: Normal size. No focal lesions. PANCREAS: No masses. No significant calcifications. No adjacent inflammation or peripancreatic fluid collections. Pancreatic duct not dilated. GALLBLADDER: No identified stones by CT criteria. No inflammatory changes to suggest cholecystitis. ADRENAL GLANDS: No significant masses or asymmetry. RIGHT KIDNEY AND URETER: No solid masses. No significant calcifications. No hydronephrosis or hyd roureter. LEFT KIDNEY AND URETER: No solid masses. No significant calcifications. No hydronephrosis or hydr oureter. AORTA AND VESSELS: No aneurysm. No dissection. Renal arteries, SMA, celiac without stenosis. RETROPERITONEUM: No retroperitoneal adenopathy, hemorrhage or masses. BOWEL AND PERITONEAL CAVITY: No masses or inflammatory changes. No free fluid or peritoneal masses. APPENDIX: Normal. PELVIS: No mass. No free fluid. Normal bladder. ABDOMINAL WALL: No masses. No hernias. BONES: No significant or acute findings. OTHER: No other significant finding. IMPRESSION: Diffuse fatty infiltration of the liver. No other significant intra-abdominal or pelvic abnormalities were identified. Other findings as noted above TECHNICAL DOCUMENTATION: JOB ID: [id number] Quality ID # [id number]: Final reports with documentation of one or more dose reduction techniques (e.g., Au tomated exposure control, adjustment of the mA and/or kV according to patient size, use of iterative reconstruction technique) 2010 [employer]- All Rights Reserved Reading location - IP/workstation name: [email or web address]
[2018-10-14] MEDS ORDERED: CLINDAMYCIN 600 MG/D5W RTU 600 MG/50 ML RTUPB IV ONE (12:56)
[2018-10-14] MEDS ORDERED: HYDROCODONE/ACETAMINOPHEN 5-325 MG (6 TAB/ER DISP) PO PRN (13:04)
--- NOTE | 2018-10-14 13:04 | ER Document Report ---
ED General - General Chief Complaint: Abdominal Pain Stated Complaint: ABDOMINAL PAIN Time Seen by Provider: 10/14/18 09:08 Mode of Arrival: Ambulatory Information source: Patient Notes: Patient is a 28-year-old male who presents with chief complaint of right lower quadrant abdominal pain. He reports that he had surgery done about 6 months ago for an abscess in his abdomen, states that it is not healing right and he has pain underneath the incision. Patient is concerned that he may have another abscess. Patient unsure if he has had fevers but he does report intermittent chills over the last several weeks. Patient has not followed up with his surgeon for this concern today. TRAVEL OUTSIDE OF THE [place] IN LAST 30 DAYS: No - Related Data Allergies/Adverse Reactions: amoxicillin [Amoxicillin] Allergy (Verified 10/14/18 08:34) Past Medical History - General Information source: Patient - Social History Smoking Status: Former Smoker Chew tobacco use (# tins/day): No Frequency of alcohol use: Rare Drug Abuse: None Family History: Arthritis, DM, Hypertension, Malignancy. 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 Denies: Hx Tonsillectomy - Immunizations Hx Diphtheria, Pertussis, Tetanus Vaccination: Yes Review of Systems - Review of Systems Gastrointestinal: Abdominal pain -: Yes All other systems reviewed and negative Physical Exam - Vital signs Vitals: Temp Pulse Resp BP Pulse Ox 98.1 F 93 18 179/66 H 97 10/14/18 08:37 10/14/18 08:37 10/14/18 08:37 10/14/18 08:37 10/14/18 08:37 - Notes Notes: PHYSICAL EXAMINATION: GENERAL: Well-appearing, well-nourished and in no acute distress. HEAD: Atraumatic, normocephalic. EYES: Pupils equal round and reactive to light, extraocular movements intact, sclera anicteric, conjunctiva are normal. ENT: Nares patent, oropharynx clear without exudates. Moist mucous membranes. NECK: Normal range of motion, supple without lymphadenopathy LUNGS: Breath sounds clear to auscultation bilaterally and equal. No wheezes rales or rhonchi. HEART: Regular rate and rhythm without murmurs ABDOMEN: Soft, nontender, nondistended abdomen. No guarding, no rebound. No masses appreciated. 6 cm incision site from surgery 6 months ago with foul- smelling purulent drainage. Musculoskeletal: Normal range of motion, no pitting or edema. No cyanosis. NEUROLOGICAL: Cranial nerves grossly intact. Normal speech, normal gait. Normal sensory, motor exams PSYCH: Normal mood, normal affect. SKIN: Warm, Dry, normal turgor, no rashes or lesions noted. See above. Course - Re-evaluation Re-evalutation: Lab work was obtained and is within normal limits. I did proceed with a CT of the abdomen and pelvis with IV contrast only to evaluate for possible abscess. The CAT scan is negative. Patient with likely cellulitis. Will place patient on p.o. antibiotics. I encourage patient to follow-up with his surgeon this week for a follow-up. Patient verbalized understanding of same and is discharged home in stable condition. - Vital Signs Vital signs: Temp Pulse Resp BP Pulse Ox 98.1 F 93 19 123/67 99 10/14/18 08:37 10/14/18 08:37 10/14/18 12:01 10/14/18 12:01 10/14/18 12:01 - Laboratory Result Diagrams: 10/14/18 10:00 10/14/18 10:00 Laboratory results interpreted by me: 10/14/18 10/14/18 10:00 11:09 Sodium 136.7 L Glucose 219 H Urine Glucose (UA) 150 H Discharge - Discharge Clinical Impression: Cellulitis Qualifiers: Site of cellulitis: unspecified site Qualified Code(s): L03.90 - Cellulitis, unspecified Condition: Stable Disposition: HOME, SELF-CARE Additional Instructions: Cellulitis You have an infection of your skin and underlying soft tissues called cellulitis. This is due to bacteria, which can enter through any break in the skin, or even through an irritated hair follicle. Untreated, cellulitis will usually worsen. Antibiotics are required. Usually, warm packs or warm soaks, and elevation of the infected area are recommended. You should start getting better within 24 to 36 hours. Most infections respond quickly to the right medication. Follow-up care is important, however, to check for abscess (boil) formation, unsuspected foreign body, or resistant infection. If you develop fever, chills, or if the area of infection is becoming rapidly more swollen or painful, call the doctor at once. Your lab work was normal today and did not show any signs of systemic infection. The CAT scan of your abdomen did not show any intra-abdominal abscess. I do believe that this is basically a cellulitis or a skin infection near your old surgical site. Please take the clindamycin as prescribed. I do need you to follow-up for a wound recheck I have given you several options for primary care to follow-up with. Return to the emergency department if you develop worsening symptoms or develop a fever. Prescriptions: RX: Clindamycin HCl 300 mg PO QID #40 capsule RX: Lisinopril [Prinivil] 10 mg PO DAILY #30 tablet
[2018-10-14] MEDS ORDERED: OXYCODONE-ACETAMINOPHEN 5-325 MG TABLET PO ONE (13:16)
[2018-10-14 13:52] VITALS: BP 123/67
== END 2018-10-14 14:25 | disposition home or self-care (01) ==
LOC: ER 08:33
DX: L03.90 Cellulitis, unspecified (principal); R10.31 Right lower quadrant pain; R68.83 Chills (without fever); J45.909 Unspecified asthma, uncomplicated; Z88.0 Allergy status to penicillin; Z87.891 Personal history of nicotine dependence; Z98.890 Other specified postprocedural states
CPT/HCPCS: 99284; 96361; 96375; 96365; 36415; 87040; 83690; 85025; 80053; 81001; 83605; 74177; J2270; J7030

== ENCOUNTER 2018-11-24 13:21 | Emergency (ER) | payer SELFPAY ==
[2018-11-24 13:32] VITALS: BP 156/96
--- NOTE | 2018-11-24 13:55 | ER Document Report ---
ED Flu Like - General Chief Complaint: Flu Symptoms Stated Complaint: COLD SYMPTOMS Time Seen by Provider: 11/24/18 13:40 Mode of Arrival: Ambulatory Information source: Patient Notes: This 28-year-old male patient comes emergency room with a 1 week history of flulike symptoms which have been worse the last 3 days. He has a harsh dry nonproductive cough. He is blowing his nose quite a bit and it is clear to green. He has tried Tylenol Cold and Flu without much relief. He does have a little bit of a sore throat, and a headache all over but is predominantly behind the eyes and made worse with coughing. Did not get a flu shot this year. TRAVEL OUTSIDE OF THE [place] IN LAST 30 DAYS: No - Related Data Allergies/Adverse Reactions: No Known Allergies Allergy (Unverified 11/24/18 13:41) Past Medical History - General Information source: Patient - Social History Smoking Status: Never Smoker Cigarette use (# per day): No Chew tobacco use (# tins/day): No Smoking Education Provided: No Frequency of alcohol use: Rare Drug Abuse: None Occupation: Works for [employer] Lives with: Friend Family History: Arthritis, DM, Hypertension, Malignancy Patient has suicidal ideation: No Patient has homicidal ideation: No Pulmonary Medical History: Reports: Hx Asthma, Hx Bronchitis Musculoskeletal Medical History: Reports Hx Arthritis - osteoarthritis to bilateral knees, Reports Hx Musculoskeletal Deformity Past Surgical History: Reports: Other - Cutaneous abscess drainage from his abdomen and back. - Immunizations Hx Diphtheria, Pertussis, Tetanus Vaccination: Yes Review of Systems - Review of Systems Constitutional: Fever EENT: Nose congestion, Nose discharge, Sinus pressure, Throat pain Cardiovascular: No symptoms reported Respiratory: Cough. denies: Sputum, Wheezing Gastrointestinal: No symptoms reported Genitourinary: No symptoms reported Musculoskeletal: No symptoms reported Skin: No symptoms reported Hematologic/Lymphatic: No symptoms reported Neurological/Psychological: No symptoms reported Physical Exam - Vital signs Vitals: Temp Pulse Resp BP Pulse Ox 98.6 F 77 20 156/96 H 98 11/24/18 13:31 11/24/18 13:31 11/24/18 13:31 11/24/18 13:31 11/24/18 13:31 Interpretation: Hypertensive - Patient's blood pressure is elevated, he has a rather large young man, and he has been taking Tylenol Cold and flu, he is also sick with the flu at this time. - General General appearance: Alert In distress: Mild - HEENT Head: Normocephalic, Atraumatic Eyes: Normal Pupils: PERRL Nasal: Other - Some nasal and sinus congestion Mucous membranes: Normal Pharynx: Erythema. No: Exudate Neck: Normal - Respiratory Respiratory status: No respiratory distress Breath sounds: Nonproductive cough - Harsh coarse breath sounds with his nonproductive cough - Cardiovascular Rhythm: Regular Heart sounds: Normal auscultation Murmur: No - Abdominal Inspection: Obese - Back Back: Normal - Extremities General upper extremity: Normal inspection General lower extremity: Normal inspection - Neurological Neuro grossly intact: Yes - Psychological Associated symptoms: Normal affect, Normal mood - Skin Skin Temperature: Warm Skin Moisture: Dry Skin Color: Normal Course - Vital Signs Vital signs: Temp Pulse Resp BP Pulse Ox 98.6 F 77 20 156/96 H 98 11/24/18 13:31 11/24/18 13:31 11/24/18 13:31 11/24/18 13:31 11/24/18 13:31 Discharge - Discharge Clinical Impression: Influenza-like illness Condition: Stable Disposition: HOME, SELF-CARE Additional Instructions: Viral Syndrome The physician has diagnosed a viral infection. Viruses not only cause "colds," but can cause many different symptoms including generalized aching, fever, headache, cough, diarrhea, nausea, vomiting, and fatigue. The treatment, for the most part, is simply relief of symptoms. This means that antibiotics are usually not given. Rest, fluids, pain medications and, occasionally, medication for the specific symptoms that are most bothersome will be prescribed. Use good handwashing to avoid passing the virus to others. Shared toys should be cleaned with disinfectant. Clean the toilets, sinks, and counter surfaces in bathrooms. Launder clothing in hot water. Contact the physician if you develop any new or unusual symptoms such as severe headache, stiff neck, high fever, chest pain, productive cough, or shortness of breath. You should be rechecked if you don't see marked improvement within seven to 10 days. You have a viral flulike illness, probably influenza. This usually takes at least 2 weeks to get over, sometimes longer. Take medication as prescribed to help control your cough. Get something like Robitussin-DM or Delsym DM for additional cough control. Take Tylenol and ibuprofen for fever, headaches, and body aches. Drink plenty of fluids and get plenty of rest and sleep. Follow-up with a local medical doctor if not improving. RETURN TO THE EMERGENCY ROOM IF ANY NEW OR WORSENING SYMPTOMS. Prescriptions: Benzonatate [Tessalon Perles 100 mg Capsule] 100 mg PO ASDIR PRN #40 capsule PRN Reason: Forms: Return to Work
== END 2018-11-24 13:57 | disposition home or self-care (01) ==
LOC: ER 13:21
DX: J11.1 Influenza due to unidentified influenza virus with other respiratory manifestations (principal); R05 Cough; R51 Headache; J45.909 Unspecified asthma, uncomplicated; R50.9 Fever, unspecified; R09.81 Nasal congestion; J34.89 Other specified disorders of nose and nasal sinuses
CPT/HCPCS: 99283

== ENCOUNTER 2019-01-16 18:19 | Emergency (ER) | payer SELFPAY | END 2019-01-16 20:30 | disposition left against medical advice (07) | LOC: ER 18:19 | DX: Z53.21 Procedure and treatment not carried out due to patient leaving prior to being seen by health care provider (principal) ==

== ENCOUNTER 2019-01-18 13:30 | Emergency (ER) | payer SELFPAY ==
--- NOTE | 2019-01-18 14:19 | ER Document Report ---
ED Medical Screen (RME) - General Chief Complaint: Abscess Stated Complaint: ABSCESS Time Seen by Provider: 01/18/19 14:18 Mode of Arrival: Ambulatory Information source: Patient TRAVEL OUTSIDE OF THE [place] IN LAST 30 DAYS: No - HPI Patient complains to provider of: abscess Onset: Last week - pt with abscess on posterior neck which has been getting worse - Related Data Allergies/Adverse Reactions: No Known Allergies Allergy (Verified 01/18/19 13:30) Past Medical History - Past Medical History Cardiac Medical History: Denies: Hx Coronary Artery Disease, Hx Hypertension Pulmonary Medical History: Reports: Hx Asthma, Hx Bronchitis Endocrine Medical History: Denies: Hx Diabetes Mellitus Type 1, Hx Diabetes Mellitus Type 2 Renal/ Medical History: Denies: Hx Peritoneal Dialysis Musculoskeltal Medical History: Reports Hx Arthritis - osteoarthritis to bilateral knees, Reports Hx Musculoskeletal Deformity Past Surgical History: Reports: Other - Abscess. Denies: Hx Tonsillectomy - Immunizations Hx Diphtheria, Pertussis, Tetanus Vaccination: Yes Physical Exam - Vital signs Vitals: Temp Pulse Resp BP Pulse Ox 99.0 F 112 H 18 154/86 H 98 01/18/19 13:35 01/18/19 13:35 01/18/19 13:35 01/18/19 13:35 01/18/19 13:35 Course - Vital Signs Vital signs: Temp Pulse Resp BP Pulse Ox 99.0 F 112 H 18 154/86 H 98 01/18/19 13:35 01/18/19 13:35 01/18/19 13:35 01/18/19 13:35 01/18/19 13:35
[2019-01-18] MEDS ORDERED: HYDROCODONE/ACETAMINOPHEN 5-325 MG TABLET PO ONE (14:42)
[2019-01-18] MEDS: LIDOCAINE 1% INJ-PF (10 MG/ML) 30 ML SDV INJ ONE ×2 (14:58→15:03)
--- NOTE | 2019-01-18 15:55 | ER Document Report ---
ED Skin Rash/Insect Bite/Abscs - General Chief Complaint: Abscess Stated Complaint: ABSCESS Time Seen by Provider: 01/18/19 14:18 Primary Care Provider: [facility] [Outside] - Follow up as needed Mode of Arrival: Ambulatory Information source: Patient Notes: Patient is an otherwise healthy 28-year-old male who presents to the emergency department chief complaint of possible abscess to the back of his neck. Patient reports this is been there for 3-4 days. He denies any fevers or drainage from the area. He states he has had similar episodes on the other side of his neck but it had to be lanced before. Patient denies any history of diabetes, states he was checked for this approximately 6 months ago. TRAVEL OUTSIDE OF THE [place] IN LAST 30 DAYS: Yes - Related Data Allergies/Adverse Reactions: No Known Allergies Allergy (Verified 01/18/19 13:30) Past Medical History - General Information source: Patient - Social History Smoking Status: Never Smoker Chew tobacco use (# tins/day): No Frequency of alcohol use: None Drug Abuse: None Family History: Arthritis, DM, Hypertension, Malignancy Patient has suicidal ideation: No Patient has homicidal ideation: No - Past Medical History Cardiac Medical History: Denies: Hx Coronary Artery Disease, Hx Hypertension Pulmonary Medical History: Reports: Hx Asthma, Hx Bronchitis Endocrine Medical History: Denies: Hx Diabetes Mellitus Type 1, Hx Diabetes Mellitus Type 2 Renal/ Medical History: Denies: Hx Peritoneal Dialysis Musculoskeletal Medical History: Reports Hx Arthritis - 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 Denies: Hx Tonsillectomy - Immunizations Hx Diphtheria, Pertussis, Tetanus Vaccination: Yes Review of Systems - Review of Systems Constitutional: No symptoms reported EENT: No symptoms reported Cardiovascular: No symptoms reported Respiratory: No symptoms reported Gastrointestinal: No symptoms reported Genitourinary: No symptoms reported Male Genitourinary: No symptoms reported Musculoskeletal: No symptoms reported Skin: See HPI Hematologic/Lymphatic: No symptoms reported Neurological/Psychological: No symptoms reported Physical Exam - Vital signs Vitals: Temp Pulse Resp BP Pulse Ox 99.0 F 112 H 18 154/86 H 98 01/18/19 13:35 01/18/19 13:35 01/18/19 13:35 01/18/19 13:35 01/18/19 13:35 - Notes Notes: PHYSICAL EXAMINATION: GENERAL: Well-appearing, well-nourished and in no acute distress. HEAD: Atraumatic, normocephalic. EYES: Pupils equal round extraocular movements intact, conjunctiva are normal. ENT: Nares patent NECK: Normal range of motion LUNGS: No respiratory distress Musculoskeletal: Normal range of motion NEUROLOGICAL: Normal speech, normal gait. PSYCH: Normal mood, normal affect. SKIN: Area of tenderness to palpation noted to left posterior neck near fold of neck, no induration or fluctuance noted, mild erythema. Course - Re-evaluation Re-evalutation: 01/18/19 15:30 Patient reports that he has an abscess on the left posterior side of his neck near the fold of his neck. He states that this is been present for approximately 3-4 days. He reports he had a similar one drained on the other side of his neck. Upon my evaluation I cannot find any particular area of induration or fluctuance although the area is tender to palpation. Dr. Braxton came to the bedside with an ultrasound machine and there is a fluid pocket located to the left side of the neck on the posterior surface however it appears there could possibly be some tunneling so patient will be sent for a CT soft tissue neck with IV contrast to further evaluate this prior to considering incision and drainage. Patient was given 2 tablets of Vicodin for his pain. 01/18/19 17:12 CT soft tissue does not show any abscess, but shows subcutaneous induration. Discussed with Dr. Braxton who recommends patient DC home with instructions to do warm compresses. This was discussed with the patient. He understands to do warm compresses at least 3-4 times daily. Return to the emergency department with worsening symptoms to include development of fever, worsening pain to the area or any other symptom that is concerning to him. I will also give patient [facility] as patient does not have a primary care provider. - Vital Signs Vital signs: Temp Pulse Resp BP Pulse Ox 98.2 F 110 H 18 149/91 H 97 01/18/19 18:07 01/18/19 18:07 01/18/19 18:07 01/18/19 18:07 01/18/19 18:07 Discharge - Discharge Clinical Impression: Skin irritation, subcutaneous induration Condition: Stable Disposition: HOME, SELF-CARE Additional Instructions: As discussed please apply warm compresses to the area at least 3-4 times daily. Take ibuprofen 600 mg every 6 hours for pain and inflammation. Use the hydrocodone only for severe pain. Please be aware that the hydrocodone does contain acetaminophen so will use caution if taking additional acetaminophen. Return to the emergency department with worsening pain, swelling, redness or development of fever. Referrals: [facility] [Outside] - Follow up as needed
--- NOTE | 2019-01-18 16:42 | RADIOLOGY REPORT (SQ) ---
EXAM DESCRIPTION: CT SOFT TISSUE NECK WITH COMPLETED DATE/TIME: 01/18/2019 4:23 pm REASON FOR STUDY: eval for abscess left posterior neck COMPARISON: None. TECHNIQUE: Post IV contrasted scanning from skull base through lung apices with review of bone, soft tissue and lung windows. Reconstructed coronal and sagittal MPR images reviewed. All images stored on PACS. All CT scanners at this facility use dose modulation, iterative reconstruction, and/or weight based d osing when appropriate to reduce radiation dose to as low as reasonably achievable (ALARA). [facility]: Dose Right [facility]: CareDose [facility]: Dose Right [facility]: Teradose 4D [facility]: [facility] CONTRAST TYPE AND DOSE: contrast/concentration: Isovue 350.00 mg/ml; Total Contrast Delivered: 75.0 ml; Total Saline Delivered: 51.0 ml RENAL FUNCTION: None required. The patient is less than 50 years old. RADIATION DOSE: CT Rad equipment meets quality standard of care and radiation dose reduction techniq ues were employed. CTDIvol: 20.4 mGy. DLP: 553 mGy-cm. . LIMITATIONS: None. FINDINGS: SKULL BASE: Intact. MAJOR SALIVARY GLANDS: No solid or cystic masses. No inflammatory changes. LYMPHADENOPATHY: No adenopathy. MUCOSAL MASSES OR ASYMMETRY: No mucosal masses or asymmetry. LARYNX/CORDS: No abnormal findings. VASCULAR STRUCTURES: The major vessels are patent. LUNG APICES: Clear. BONES: Intact. THYROID: Normal size. No masses. PARANASAL SINUSES: Clear. OTHER: No abscess. Subcutaneous induration in the posterior left neck. IMPRESSION: No abscess. Subcutaneous induration in the posterior left neck. TECHNICAL DOCUMENTATION: JOB ID: [id number] Quality ID # [id number]: Final reports with documentation of one or more dose reduction techniques (e.g., Au tomated exposure control, adjustment of the mA and/or kV according to patient size, use of iterative reconstruction technique) 2010 [employer]- All Rights Reserved Reading location - IP/workstation name: [email or web address]
[2019-01-18] MEDS ORDERED: HYDROCODONE/ACETAMINOPHEN 5-325 MG (6 TAB/ER DISP) PO PRN (17:11)
[2019-01-18 18:10] VITALS: BP 149/91
== END 2019-01-18 18:19 | disposition home or self-care (01) ==
LOC: ER 13:30
DX: L98.9 Disorder of the skin and subcutaneous tissue, unspecified (principal)
CPT/HCPCS: 70491; 99283; J3490

== ENCOUNTER 2019-02-11 09:09 | Emergency (ER) | payer SELFPAY ==
[2019-02-11 09:31] VITALS: BP 157/83
[2019-02-11] MEDS ORDERED: IBUPROFEN 600 MG TABLET PO ONE (09:47)
--- NOTE | 2019-02-11 09:49 | ER Document Report ---
ED Medical Screen (RME) - General Chief Complaint: Toe Injury Stated Complaint: TOE INJURY Time Seen by Provider: 02/11/19 09:44 Mode of Arrival: Ambulatory TRAVEL OUTSIDE OF THE [place] IN LAST 30 DAYS: No - HPI Patient complains to provider of: Left great toe injury Notes: 02/11/19 09:47 Patient is here with complaints of left great toe injury. He states he was walking his right vein dog pulled him and he injured his left great toe. He states that his nail popped up and the area is now bleeding. He complains of pain to the area. No green drainage. No redness. No fever. Patient states that he did recently find out that he is a diabetic. He denies any other complaints. Exam Nontoxic appearing, no distress. Left great toenail appears to be slightly lifted from the nail bed with a small amount of dried blood. No redness or drainage. Plan X-ray, Motrin. Patient will be evaluated by another provider to determine if any intervention is required at this time. An initial examination was made on the patient as part of the triage process, and it was determined a more comprehensive evaluation was necessary. Initial labs were ordered and patient was transferred to another provider in the ED who assumed care and finished evaluation and plan. 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 Denies: Hx Tonsillectomy - Immunizations Hx Diphtheria, Pertussis, Tetanus Vaccination: Yes Physical Exam - Vital signs Vitals: Temp Pulse Resp BP Pulse Ox 98.5 F 98 20 157/83 H 97 02/11/19 09:30 02/11/19 09:30 02/11/19 09:30 02/11/19 09:30 02/11/19 09:30 Course - Vital Signs Vital signs: Temp Pulse Resp BP Pulse Ox 98.5 F 98 20 157/83 H 97 02/11/19 09:30 02/11/19 09:30 02/11/19 09:30 02/11/19 09:30 02/11/19 09:30
[2019-02-11] MEDS ORDERED: ACETAMINOPHEN 325 MG TABLET PO ONE (10:05)
[2019-02-11] MEDS ORDERED: OXYCODONE HCL IR 5 MG TABLET PO ONE (10:22)
[2019-02-11] MEDS ORDERED: CEPHALEXIN 500 MG CAPSULE PO ONE (10:23)
--- NOTE | 2019-02-11 10:29 | RADIOLOGY REPORT (SQ) ---
EXAM DESCRIPTION: FOOT LEFT COMPLETE COMPLETED DATE/TIME: 02/11/2019 10:21 am REASON FOR STUDY: toe injury COMPARISON: None. NUMBER OF VIEWS: Three views. TECHNIQUE: AP, lateral and oblique radiographic images acquired of the left foot. LIMITATIONS: None. FINDINGS: MINERALIZATION: Normal. BONES: No acute fracture or dislocation. No worrisome bone lesions. JOINTS: No effusions. SOFT TISSUES: No soft tissue swelling. No foreign body. OTHER: No other significant finding. IMPRESSION: NEGATIVE STUDY OF THE LEFT FOOT. NO RADIOGRAPHIC EVIDENCE OF ACUTE INJURY. TECHNICAL DOCUMENTATION: JOB ID: [id number] [employer]- All Rights Reserved Reading location - IP/workstation name: [email or web address]
--- NOTE | 2019-02-11 17:46 | ER Document Report ---
Entered by ESTELA FARRIS SCRIBE 02/11/19 1055 Acting as scribe for:MICHELLE ALFREDO MD ED Extremity Problem, Lower - General Chief Complaint: Toe Injury Stated Complaint: TOE INJURY Time Seen by Provider: 02/11/19 09:44 Mode of Arrival: Ambulatory Information source: Patient Notes: Patient is a 28-year-old male who presents to the emergency department today for left great toe pain. Patient states he was chasing his great Norman and the dog jumped a fence so he had to run across yards to find him. Patient states he ran barefoot and caught his toenail on something which pulled it up from the nailbed. TRAVEL OUTSIDE OF THE [place] 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 knees, Reports Hx Musculoskeletal Deformity Past Surgical History: Reports: Hx Abdominal Surgery - cyst, Other - Abscess - Immunizations Hx Diphtheria, Pertussis, Tetanus Vaccination: Yes Review of Systems - Review of Systems Constitutional: No symptoms reported EENT: No symptoms reported Cardiovascular: No symptoms reported Respiratory: No symptoms reported Gastrointestinal: No symptoms reported Genitourinary: No symptoms reported Male Genitourinary: No symptoms reported Musculoskeletal: See HPI, Other - left great toe pain Skin: No symptoms reported Hematologic/Lymphatic: No symptoms reported Neurological/Psychological: No symptoms reported -: Yes All other systems reviewed and negative Physical Exam - Vital signs Vitals: Temp Pulse Resp BP Pulse Ox 98.5 F 98 20 157/83 H 97 02/11/19 09:30 02/11/19 09:30 02/11/19 09:30 02/11/19 09:30 02/11/19 09:30 - Notes Notes: Physical Exam: General: Alert, appears well. HEENT: Normocephalic. Atraumatic. PERRLA. Extraocular movements intact. Oroph arynx clear. Neck: Supple. Respiratory: No respiratory distress. Abdominal: Normal Inspection. No distension. Extremities: Left 1st great toe nail, distal 1/2-2/3 is avulsed. Base of the na il is well attached. No laceration or active bleeding. Neurological: Normal cognition. AAOx4. Normal speech. Psychological: Normal affect. Normal Mood. Skin: Warm. Dry. Normal color. Course - Vital Signs Vital signs: Temp Pulse Resp BP Pulse Ox 98.5 F 98 20 157/83 H 97 02/11/19 09:30 02/11/19 09:30 02/11/19 09:30 02/11/19 09:30 02/11/19 09:30 - Diagnostic Test Radiology reviewed: Image reviewed, Reports reviewed - No fracture seen to the left first toe Discharge - Discharge Clinical Impression: Avulsion of toenail of left foot Condition: Stable Disposition: HOME, SELF-CARE Additional Instructions: Avulsed Nail You have had a nail avulsion. The nail will regrow, usually with no deformity. The complete process of regrowth takes about three months. (Toenails take about twice as long as fingernails.) Your new nail will be thin and easily injured for about a year. The nail bed (the tissue beneath the nail) will be oozy and tender for about ten days. During this time, it will need protection with bandages. The dressings should be changed every day, or whenever wet or dirty. A small amount of ointment directly on the nail bed can keep dressings from sticking. After early healing (five or six days), you'll want to dry out the nail bed. This is usually done with epsom soaks followed by air exposure. When the nail bed has formed a tough, dry, and non-tender membrane, you may stop dressing it. If redness, swelling, increasing tenderness, drainage, or tender lumps in the groin or armpit above the avulsion occur, call the doctor at once. You had a partial avulsion of your toenail. The nail was left in place as a protective covering and to maintain the integrity of your nail bed to allow the new nail to grow out properly. Take the medication as prescribed. History of foot is much as possible. Limit walking for the next few days. Keep the toe clean and dressed and protect the nail from trauma. Trim the edge of the nail as it starts to grow out. Eventually the nail will probably fall off as the new nail starts growing out. RETURN TO THE EMERGENCY ROOM IF ANY NEW OR WORSENING SYMPTOMS. Prescriptions: Cephalexin Monohydrate [Keflex 500 mg Capsule] 500 mg PO QID #20 capsule Oxycodone HCl/Acetaminophen [Percocet 5-325 mg Tablet] 1 tab PO ASDIR PRN #12 tablet PRN Reason: Forms: Return to Work Scribe Attestation: 02/11/19 10:57 I personally performed the services described in the documentation, reviewed and edited the documentation which was dictated to the scribe in my presence, and it accurately records my words and actions. I personally performed the services described in the documentation, reviewed and edited the documentation which was dictated to the scribe in my presence, and it accurately records my words and actions.
== END 2019-02-11 12:17 | disposition home or self-care (01) ==
LOC: ER 09:09
DX: S91.202A Unspecified open wound of left great toe with damage to nail, initial encounter (principal); M79.675 Pain in left toe(s); X58.XXXA Exposure to other specified factors, initial encounter; Y93.02 Activity, running; J45.909 Unspecified asthma, uncomplicated
CPT/HCPCS: 99283

== ENCOUNTER 2019-02-23 18:37 | Emergency (ER) | payer SELFPAY ==
[2019-02-23] MEDS ORDERED: ONDANSETRON 4 MG TAB.RAPDIS PO ONE (19:21)
[2019-02-23] MEDS ORDERED: FAMOTIDINE 20 MG TABLET PO ONE (19:21)
--- NOTE | 2019-02-23 19:23 | ER Document Report ---
ED Medical Screen (RME) - General Chief Complaint: Abdominal Pain Stated Complaint: ABDOMINAL PAIN Time Seen by Provider: 02/23/19 19:21 Mode of Arrival: Ambulatory Information source: Patient Notes: 28-year-old male presents to ED for upper abdominal pain. He states he was diagnosed with a ulcer at [facility] recently. He states his been taking Pepcid and Zofran. States that he is supposed to follow-up with his primary care doctor. He does not have a digital manager. Patient states he has been nauseated and have a decrease in pain today. Patient was treated with Pepcid a nd Zofran in the emergency room. I have greeted and performed a rapid initial assessment of this patient. A comprehensive ED assessment and evaluation of the patient, analysis of test results and completion of medical decision making process will be conducted by an additional ED providers. TRAVEL OUTSIDE OF THE [place] IN LAST 30 DAYS: No - Related Data Allergies/Adverse Reactions: No Known Allergies Allergy (Verified 02/11/19 09:11) Past Medical History - Past Medical History Cardiac Medical History: Denies: Hx Coronary Artery Disease, Hx Hypertension Pulmonary Medical History: Reports: Hx Asthma, Hx Bronchitis Endocrine Medical History: Denies: Hx Diabetes Mellitus Type 1, Hx Diabetes Mellitus Type 2 Renal/ Medical History: Denies: Hx Peritoneal Dialysis Musculoskeltal Medical History: Reports Hx Arthritis - 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 Denies: Hx Tonsillectomy - Immunizations Hx Diphtheria, Pertussis, Tetanus Vaccination: Yes Physical Exam - Vital signs Vitals: Temp Pulse Resp BP Pulse Ox 98.5 F 107 H 20 185/87 H 97 02/23/19 18:47 02/23/19 18:47 02/23/19 18:47 02/23/19 18:47 02/23/19 18:47 Course - Vital Signs Vital signs: Temp Pulse Resp BP Pulse Ox 98.5 F 107 H 20 185/87 H 97 02/23/19 18:47 02/23/19 18:47 02/23/19 18:47 02/23/19 18:47 02/23/19 18:47
[2019-02-23 19:58] LABS: ABSOLUTE BASOPHILS # (AUTO) 0.1 10^3/uL (0.0-0.2); ABSOLUTE EOSINOPHILS # (AUTO) 0.2 10^3/uL (0.0-0.6); ABSOLUTE MONOCYTES (AUTO) 0.9 10^3/uL (0.1-1.4); ABSOLUTE NEUT (AUTO) 5.7 10^3/uL (1.7-8.2); BASOPHILS % (AUTO) 0.7 % (0-2); EOSINOPHILS % (AUTO) 2.5 % (0-6); HEMATOCRIT 42.5 % (37.9-51.0); HEMOGLOBIN 14.8 g/dL (13.5-17.0); LYMPHOCYTES % (AUTO) 30.6 % (13-45); MEAN CORPUSCULAR HEMOGLOBIN 27.7 pg (27.0-33.4); MEAN CORPUSCULAR HGB CONC 34.7 g/dL (32.0-36.0); MEAN CORPUSCULAR VOLUME 80 fl (80-97); MONOCYTES % (AUTO) 8.9 % (3-13); PLATELET COUNT 302 10^3/uL (150-450); RED BLOOD COUNT 5.33 10^6/uL (4.35-5.55); RED CELL DISTRIBUTION WIDTH 12.7 % (11.5-14.0); SEGMENTED NEUTROPHILS % (AUTO) 57.3 % (42-78); TOTAL CELLS COUNTED % (AUTO) 100 %; WHITE BLOOD COUNT 9.9 10^3/uL (4.0-10.5)
[2019-02-23 20:14] LABS: ALANINE AMINOTRANSFERASE 97 U/L (21-72); ALKALINE PHOSPHATASE 107 U/L (38-126); ANION GAP 16 (5-19); ASPARTATE AMINO TRANSFERASE 53 U/L (17-59); BILIRUBIN,DIRECT 0.2 mg/dL (0.0-0.4); BILIRUBIN,TOTAL 0.3 mg/dL (0.2-1.3); BLOOD UREA NITROGEN 11 mg/dL (7-20); CALCIUM 9.7 mg/dL (8.4-10.2); CARBON DIOXIDE 24 mmol/L (22-30); CHLORIDE 101 mmol/L (98-107); GLUCOSE 287 mg/dL (75-110); LIPASE 191.7 U/L (23-300); POTASSIUM 4.6 mmol/L (3.6-5.0); SODIUM 140.7 mmol/L (137-145); TOTAL PROTEIN 7.2 g/dL (6.3-8.2)
[2019-02-23] MEDS ORDERED: LIDOCAINE 2% VISCOUS SOLN 20 ML UDCUP PO ONE (20:56)
[2019-02-23] MEDS ORDERED: METOCLOPRAMIDE HCL ORAL SOLN 10 MG/10 ML UDCUP PO ONE (20:56)
[2019-02-23] MEDS ORDERED: MAG HYDROX/AL HYDROX/SIMETH SUSP 30 ML UDCUP PO ONE (20:56)
--- NOTE | 2019-02-23 21:18 | ER Document Report ---
ED General - General Chief Complaint: Abdominal Pain Stated Complaint: ABDOMINAL PAIN Time Seen by Provider: 02/23/19 19:21 Mode of Arrival: Ambulatory TRAVEL OUTSIDE OF THE [place] IN LAST 30 DAYS: No - HPI Patient complains to provider of: Abdominal pain Notes: Patient coming in for epigastric abdominal pain. Patient was seen in triage his notes provided below 28-year-old male presents to ED for upper abdominal pain. He states he was diagnosed with a ulcer at [facility] recently. He states his been taking Pepcid and Zofran. States that he is supposed to follow-up with his primary care doctor. 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 Patient states he has been nauseated and have a decrease in pain today. Patient was treated with Pepcid and Zofran in the emergency room. Patient upon my evaluation states during hospitalization in [place] he was diagnosed with stomach ulcer discharged home with Pepcid and Zofran. Patient states he is changing primary care physicians has an appointment to see his primary care physician on Sunday. Patient states continued pain increased pain today patient states he has sausage and sauerkraut for a meal today did exacerbate his pain. Patient is concerned that he may have a stomach ulcer and is requesting H. pylori testing. Patient denies history of any other GI disease patient states he was diagnosed with diabetes and depression while in the hospital states he is continue to take his metformin however stopped his Zoloft. Patient denies any abdominal trauma denies fevers chills nausea vomiting diarrhea. Patient otherwise looks to be no obvious distress upon my evaluation. - Related Data Allergies/Adverse Reactions: No Known Allergies Allergy (Verified 02/23/19 20:05) Past Medical History - General Information source: Patient - Social History Smoking Status: Former Smoker Family History: Arthritis, DM, Hypertension, Malignancy Patient has suicidal ideation: No Patient has homicidal ideation: No - Past Medical History Cardiac Medical History: Denies: Hx Coronary Artery Disease, Hx Hypertension Pulmonary Medical History: Reports: Hx Asthma, Hx Bronchitis Endocrine Medical History: Denies: Hx Diabetes Mellitus Type 1, Hx Diabetes Mellitus Type 2 Renal/ Medical History: Denies: Hx Peritoneal Dialysis Musculoskeletal Medical History: Reports Hx Arthritis - 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 Denies: Hx Tonsillectomy - Immunizations Hx Diphtheria, Pertussis, Tetanus Vaccination: Yes Review of Systems - Review of Systems Constitutional: No symptoms reported EENT: No symptoms reported Cardiovascular: No symptoms reported Respiratory: No symptoms reported Gastrointestinal: Abdominal pain Genitourinary: No symptoms reported Male Genitourinary: No symptoms reported Musculoskeletal: No symptoms reported Skin: No symptoms reported Hematologic/Lymphatic: No symptoms reported Neurological/Psychological: No symptoms reported -: Yes All other systems reviewed and negative Physical Exam - Vital signs Vitals: Temp Pulse Resp BP Pulse Ox 98.5 F 107 H 20 185/87 H 97 02/23/19 18:47 02/23/19 18:47 02/23/19 18:47 02/23/19 18:47 02/23/19 18:47 Interpretation: Normal - General General appearance: Appears well, Alert - HEENT Head: Normocephalic, Atraumatic Eyes: Normal Pupils: PERRL - Respiratory Respiratory status: No respiratory distress Chest status: Nontender Breath sounds: Normal Chest palpation: Normal - Cardiovascular Rhythm: Regular Heart sounds: Normal auscultation Murmur: No - Abdominal Inspection: Normal Distension: No distension Bowel sounds: Normal Tenderness: Nontender Organomegaly: No organomegaly - Back Back: Normal, Nontender - Extremities General upper extremity: Normal inspection, Nontender, Normal color, Normal ROM, Normal temperature General lower extremity: Normal inspection, Nontender, Normal color, Normal ROM, Normal temperature, Normal weight bearing. No: Jesika's sign - Neurological Neuro grossly intact: Yes Cognition: Normal Orientation: AAOx4 Idalou Coma Scale Eye Opening: Spontaneous Samina Coma Scale Verbal: Oriented Samina Coma Scale Motor: Obeys Commands Idalou Coma Scale Total: 15 Speech: Normal Motor strength normal: LUE, RUE, LLE, RLE Sensory: Normal - Psychological Associated symptoms: Normal affect, Normal mood - Skin Skin Temperature: Warm Skin Moisture: Dry Skin Color: Normal Course - Re-evaluation Re-evalutation: 02/24/19 01:46 The patient presents with abdominal pain without signs of peritonitis or other life-threatening or serious etiology. The patient appears stable for discharge and has been instructed to return immediately if the symptoms worsen in any way, or in 8-12hr if not improved for re-evaluation. The patient has been instructed to return if the symptoms worsen or change in any way. Explained the patient reports that he follow-up with a GI specialist. We will start the patient on Carafate and omeprazole. Patient is to stop the Pepcid. Patient states understanding of these instructions also states understanding of changing his diet patient will be discharged home - Vital Signs Vital signs: Temp Pulse Resp BP Pulse Ox 98.3 F 97 18 149/82 H 96 02/23/19 21:40 02/23/19 21:40 02/23/19 21:40 02/23/19 21:40 02/23/19 21:40 - Laboratory Result Diagrams: 02/23/19 19:32 02/23/19 19:32 Laboratory results interpreted by me: 02/23/19 19:32 Glucose 287 H ALT 97 H Discharge - Discharge Clinical Impression: Abdominal pain Qualifiers: Abdominal location: epigastric Qualified Code(s): R10.13 - Epigastric pain Condition: Stable Disposition: HOME, SELF-CARE Instructions: Abdominal Pain ([facility]), Gastritis ([facility]), Gastroenterology, Ulcer ([facility]) Additional Instructions: Your laboratory studies today do not show any critical findings. I would highly recommend she follow-up with your primary care physician and be referred to a GI specialist to have a upper scope done or EGD to look for possible gastritis or stomach ulcer. Return to the ER if symptoms worsen. Will recommend bland diet avoiding foods that have fat grease or oil. Prescriptions: Omeprazole 20 mg PO DAILY #30 capsule. Sucralfate [Carafate 1 gm Tablet] 1 gm PO ACHS #120 tablet
[2019-02-23 21:42] VITALS: BP 149/82
== END 2019-02-23 21:40 | disposition home or self-care (01) ==
LOC: ER 18:37
DX: R10.13 Epigastric pain (principal); R10.10 Upper abdominal pain, unspecified; Z79.899 Other long term (current) drug therapy; Z87.891 Personal history of nicotine dependence; J45.909 Unspecified asthma, uncomplicated
CPT/HCPCS: 99284; 36415; 83690; 85025; 80053; S0119; J3490

== ENCOUNTER 2019-02-26 21:50 | Inpatient (IN) | payer SELFPAY ==
[2019-02-26] MEDS ORDERED: NORMAL SALINE 1000 ML 1,000 ML IV ONE ×2 (22:14→23:40)
[2019-02-26] MEDS ORDERED: ONDANSETRON HCL INJ/PF 4 MG/2 ML SDV IV ONE (22:14)
[2019-02-26] MEDS ORDERED: FENTANYL CITRATE INJ/PF 100 MCG/2 ML AMPUL IV ONE (22:31)
[2019-02-26] MEDS ORDERED: FENTANYL CITRATE INJ/PF 100 MCG/2 ML AMPUL ONE (22:32)
--- NOTE | 2019-02-26 23:04 | RADIOLOGY REPORT (SQ) ---
EXAM DESCRIPTION: [facility]: XR CHEST 1 VIEW CLINICAL HISTORY: 28 years Male, eval sepsis COMPARISON: None. FINDINGS: Lungs are clear, with no focal infiltrate, pneumothorax, or pleural effusion. Mediastinum is within normal limits for this positioning. Bony structures are unremarkable. IMPRESSION: 1. No acute pulmonary findings.
--- NOTE | 2019-02-26 23:08 | EKG REPORT ---
SEVERITY:- OTHERWISE NORMAL ECG - SINUS TACHYCARDIA : Confirmed by: Tony Alarcon 26-Feb-2019 23:08:03
[2019-02-27] MEDS ORDERED: MORPHINE SULFATE 10 MG/ML INJ IV ONE (00:08)
[2019-02-27 00:33] LABS: INTERNATIONAL RATION (INR) 0.99; PROTHROMBIN TIME 13.6 SEC (11.4-15.4)
[2019-02-27 01:03] LABS: ABSOLUTE BASOPHILS # (AUTO) 0.1 10^3/uL (0.0-0.2); ABSOLUTE LYMPHOCYTES (AUTO) 1.2 10^3/uL (0.5-4.7); ABSOLUTE MONOCYTES (AUTO) 1.1 10^3/uL (0.1-1.4); ABSOLUTE NEUT (AUTO) 14.7 10^3/uL (1.7-8.2); BASOPHILS % (AUTO) 0.6 % (0-2); EOSINOPHILS % (AUTO) 0.1 % (0-6); HEMOGLOBIN 16.4 g/dL (13.5-17.0); LYMPHOCYTES % (AUTO) 7.1 % (13-45); MEAN CORPUSCULAR HEMOGLOBIN 26.6 pg (27.0-33.4); MEAN CORPUSCULAR HGB CONC 33.5 g/dL (32.0-36.0); MEAN CORPUSCULAR VOLUME 79 fl (80-97); MONOCYTES % (AUTO) 6.4 % (3-13); PLATELET COUNT 371 10^3/uL (150-450); RED BLOOD COUNT 6.17 10^6/uL (4.35-5.55); SEGMENTED NEUTROPHILS % (AUTO) 85.8 % (42-78); TOTAL CELLS COUNTED % (AUTO) 100 %; WHITE BLOOD COUNT 17.2 10^3/uL (4.0-10.5)
[2019-02-27 01:33] LABS: ALANINE AMINOTRANSFERASE 100 U/L (21-72); ALKALINE PHOSPHATASE 51 U/L (38-126); ASPARTATE AMINO TRANSFERASE 61 U/L (17-59); BILIRUBIN,DIRECT 0.3 mg/dL (0.0-0.4); BILIRUBIN,TOTAL 0.6 mg/dL (0.2-1.3); BLOOD UREA NITROGEN 19 mg/dL (7-20); CALCIUM 10.5 mg/dL (8.4-10.2); GLUCOSE 256 mg/dL (75-110); POTASSIUM 5.3 mmol/L (3.6-5.0); TOTAL PROTEIN 8.9 g/dL (6.3-8.2)
[2019-02-27 01:39] LABS: CARBON DIOXIDE 20 mmol/L (22-30); CHLORIDE 103 mmol/L (98-107); SODIUM 143.3 mmol/L (137-145)
[2019-02-27 01:41] LABS: ANION GAP 20 (5-19)
[2019-02-27] MEDS ORDERED: NORMAL SALINE 1000 ML 1,000 ML IV ONE (02:17)
[2019-02-27] MEDS ORDERED: ONDANSETRON HCL INJ/PF 4 MG/2 ML SDV IV ONE (02:59)
[2019-02-27] MEDS ORDERED: DIPHENHYDRAMINE HCL 50 MG/ML VIAL IV ONE (03:38)
[2019-02-27] MEDS ORDERED: METOCLOPRAMIDE HCL INJ/PF 10 MG/2 ML SDV IV ONE (03:38)
[2019-02-27] MEDS ORDERED: KETOROLAC TROMETHAMINE INJ/PF 30 MG/1 ML SDV IV ONE (03:56)
[2019-02-27] MEDS ORDERED: DICYCLOMINE HCL INJ 20 MG/2 ML AMPULE IM ONE (03:56)
[2019-02-27 03:57] LABS: APPEARANCE,URINE CLOUDY; BILIRUBIN,URINE NEGATIVE (NEGATIVE); COLOR,URINE AMBER; GLUCOSE, URINE 50 mg/dL (NEGATIVE); KETONES,URINE TRACE mg/dL (NEGATIVE); LEUKOCYTE ESTERASE,URINE NEGATIVE (NEGATIVE); NITRITE,URINE NEGATIVE (NEGATIVE); PROTEIN,URINE >=500 mg/dL (NEGATIVE); URINE SPECIFIC GRAVITY 1.029
[2019-02-27 03:59] LABS: VENOUS BLOOD BASE EXCESS -0.5 mmol/L; VENOUS BLOOD HCO3 25.2 mmol/L (20-32); VENOUS BLOOD PCO2 44.8 mmHg (35-63); VENOUS BLOOD PH 7.37 (7.30-7.42)
[2019-02-27] MEDS ORDERED: MAG HYDROX/AL HYDROX/SIMETH SUSP 30 ML UDCUP PO ONE (04:08)
[2019-02-27] MEDS ORDERED: LIDOCAINE 2% VISCOUS SOLN 20 ML UDCUP PO ONE (04:08)
[2019-02-27] MEDS ORDERED: VANCOMYCIN HCL INJ 500 MG VIAL PO ONE (04:34)
--- NOTE | 2019-02-27 04:48 | ER Document Report ---
ED General - General Chief Complaint: Nausea/Vomiting/Diarrhea Stated Complaint: THROWING UP AND ABDOMINAL PAIN Time Seen by Provider: 02/26/19 22:14 TRAVEL OUTSIDE OF THE [place] IN LAST 30 DAYS: No - HPI Notes: Patient is a 28-year-old male who presents to the emergency department for evaluation of nausea, vomiting, diarrhea, dizziness. He has had nausea and vomiting for several weeks. He is been seen here in the past, as well as a [place]. He has had CT scans. They state told him that they suspect he may have an ulcer. He had multiple episodes today, starting it 1400, of nonbloody and nonbilious emesis. He also was started having profuse watery diarrhea. He has had some chills but no taty fevers. He became very dizzy and felt as if he was going to pass out, also developed dyspnea, so he presented to the emergency department for evaluation. He was recently diagnosed with diabetes, type II. He started on metformin just over a month ago. He was just started on insulin, filled and NovoLog 70/30 pen yesterday. Patient was on antibiotic therapy about 2 weeks ago. He states he has had cramping abdominal pain intermittently for the last week. - Related Data Allergies/Adverse Reactions: No Known Allergies Allergy (Verified 02/23/19 20:05) Past Medical History - General Information source: Patient - Social History Smoking Status: Former Smoker Chew tobacco use (# tins/day): No Drug Abuse: None Family History: Arthritis, DM, Hypertension, Malignancy Patient has suicidal ideation: No Patient has homicidal ideation: No - Past Medical History Cardiac Medical History: Denies: Hx Coronary Artery Disease, Hx Hypertension Pulmonary Medical History: Reports: Hx Asthma, Hx Bronchitis Endocrine Medical History: Denies: Hx Diabetes Mellitus Type 1, Hx Diabetes Mellitus Type 2 Renal/ Medical History: Denies: Hx Peritoneal Dialysis Musculoskeletal Medical History: Reports Hx Arthritis - 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 Denies: Hx Tonsillectomy - Immunizations Hx Diphtheria, Pertussis, Tetanus Vaccination: Yes Review of Systems - Review of Systems Constitutional: See HPI EENT: No symptoms reported Cardiovascular: No symptoms reported Respiratory: See HPI Gastrointestinal: See HPI Genitourinary: No symptoms reported Musculoskeletal: No symptoms reported Skin: No symptoms reported Neurological/Psychological: No symptoms reported Physical Exam - Vital signs Vitals: Temp Pulse Resp BP Pulse Ox 98.0 F 138 H 18 121/103 H 97 02/26/19 22:05 02/26/19 22:05 02/26/19 22:05 02/26/19 22:05 02/26/19 22:05 - Notes Notes: 28-year-old male, appears of stated age, in a moderate amount of stress. He is pale, diaphoretic, tachycardic. Vital signs reviewed, please refer to chart. Patient is normocephalic, atraumatic. Pupils equal round, reactive to light. Neck is supple without meningismus. Heart is regular rate and rhythm. Lungs are clear to auscultation bilaterally. Abdomen is soft, diffusely tender, normoactive bowel sounds throughout. Extremities without cyanosis, clubbing. Posterior calves are nontender. Peripheral pulses are equal. Skin is . Patient is awake, alert, neurological exam is nonfocal. Course - Re-evaluation Re-evalutation: 02/27/19 04:46 Patient presents to the emergency department for evaluation. Upon arrival he is diaphoretic and dizzy. He is tachycardic. He is given aggressive IV fluids. We did have some difficulty obtaining blood. Laboratory investigations revealed leukocytosis, dehydration. He has a mild elevation in his creatinine. He was given 3 L of fluid. Despite aggressive fluid resuscitation, he continues to be tachycardic. His heart rate is 110-115 while lying down, heart rate immediately rises to 130-140 upon sitting up. His blood pressure remained stable. After several hours here in the emergency department the patient did provide a stool sample. It was found to be C. difficile positive. Patient continued to have cramping abdominal pain. He was medicated multiple times with antiemetics, antispasmodics, pain medication. Pain is symptomatic. He remained tachycardic with any sort of movement. Patient given oral vancomycin. I spoke with Dr. Waters, will admit the patient for further care. 02/27/19 04:54 - Vital Signs Vital signs: Temp Pulse Resp BP Pulse Ox 98.0 F 138 H 19 160/84 H 96 02/26/19 22:05 02/26/19 22:05 02/27/19 01:00 02/27/19 00:29 02/27/19 01:00 - Laboratory Result Diagrams: 02/27/19 00:54 02/27/19 00:54 Laboratory results interpreted by me: 02/27/19 02/27/19 02/27/19 00:54 00:54 00:54 WBC 17.2 H RBC 6.17 H MCV 79 L MCH 26.6 L Seg Neutrophils % 85.8 H Lymphocytes % 7.1 L Absolute Neutrophils 14.7 H Potassium 5.3 H Carbon Dioxide 20 L Anion Gap 20 H Creatinine 1.28 H Glucose 256 H Lactic Acid 3.4 H Calcium 10.5 H AST 61 H ALT 100 H Total Protein 8.9 H Urine Protein Urine Glucose (UA) Urine Ketones Urine Blood Urine Urobilinogen 02/27/19 02/27/19 03:25 03:50 WBC RBC MCV MCH Seg Neutrophils % Lymphocytes % Absolute Neutrophils Potassium Carbon Dioxide Anion Gap Creatinine Glucose Lactic Acid 2.5 H Calcium AST ALT Total Protein Urine Protein >=500 H Urine Glucose (UA) 50 H Urine Ketones TRACE H Urine Blood SMALL H Urine Urobilinogen 2.0 H - Diagnostic Test Radiology reviewed: Reports reviewed - No acute cardiopulmonary disease - EKG Interpretation by Me Additional EKG results interpreted by me: 02/27/19 04:56 Sinus tachycardia with a rate of 138 bpm. Normal axis and intervals, no acute ST changes concerning for ischemia or infarction. Discharge - Discharge Clinical Impression: C. difficile colitis Nausea & vomiting Qualifiers: Vomiting Intractability: intractable Diarrhea Qualifiers: Diarrhea type: infectious Qualified Code(s): A09 - Infectious gastroenteritis and colitis, unspecified Condition: Stable Disposition: ADMITTED INPATIENT Admitting Provider: Evelin (Hospitalist) Unit Admitted: [facility]
[2019-02-27] MEDS ORDERED: DEXTROSE 50%-WATER 25 GM/50 ML DISP.SYRIN IV PRN ×2 (05:29)
[2019-02-27] MEDS ORDERED: DEXTROSE 40% GEL 15 GM TUBE PO PRN ×2 (05:29)
[2019-02-27] MEDS ORDERED: GLUCAGON,HUMAN RECOMB 1 MG INJ IM PRN (05:29)
[2019-02-27] MEDS ORDERED: VANCOMYCIN HCL INJ 500 MG VIAL PO SCH (06:00)
[2019-02-27] MEDS: VANCOMYCIN HCL INJ 500 MG VIAL PO SCH ×4 (06:28→23:36)
[2019-02-27] MEDS: HEPARIN SOD (PORCINE) 5,000 UNIT/ML 1 ML SYRINGE SUBCUT SCH ×3 (06:28→21:31)
[2019-02-27] MEDS: RINGERS SOLUTION,LACTATED 1,000 ML IV PRN ×4 (06:28→21:32)
--- NOTE | 2019-02-27 06:38 | PDOC H&P ---
History of Present Illness Admission Date/PCP: 02/27/2019 Dr. Arenas Patient complains of: Nausea, vomiting and diarrhea History of Present Illness: JACKIE GONZALEZ is a 28 year old male who presented to the emergency room with a 3 to 4-week history of nausea and vomiting. He has been numerous trips to the emergency room here at [facility] as well as at [facility] in [place] with a resultant of many CT scans of his abdomen but no clear diagnosis of his illness. On the day of admission he began having multiple nearly continuous episodes of nonbloody nonbilious emesis as well as profuse watery diarrhea with severe cramping, accompanied by chills without fever. Additionally he felt very dizzy and lightheaded as well as dyspneic which prompted him to come to the emergency room. He was recently diagnosed as having type 2 diabetes mellitus and was started on metformin about a month ago just prior to the onset of his current symptoms. He was started on insulin using NovoLog 70/30 pen by a primary care provider yesterday and he had also been given a course of antibiotic medication to treat his diarrhea about 2 weeks ago by a different provider. He has not identified any aggravating or ameliorating factors for his nausea vomiting and diarrhea and denies having prior similar episodes before this current 3 to 4-week bout began. In the emergency room he was found to have a positive C. difficile stool test and was noted to be significantly tachycardic when he would be in an upright position. His laboratory evaluation showed an acute kidney injury, a significant leukocytosis and a moderate hyperglycemia. Patient was subsequently admitted to the hospital for further evaluation and treatment. Past Medical History Cardiac Medical History: Denies: Atrial Fibrillation, Coronary Artery Disease, Hyperlipidema, Hypertension Pulmonary Medical History: Reports: Asthma, Bronchitis EENT Medical History: Denies: Cataracts, Ears - No decreased hearing Neurological Medical History: Denies: Hemorrhagic CVA, Ischemic CVA, Seizures Endocrine Medical History: Reports: Diabetes Mellitus Type 2, Obesity Denies: Diabetes Mellitus Type 1, Hyperthyroidism, Hypothyroidism Renal/ Medical History: Denies: Chronic Kidney Disease, Nephrolithiasis Malignancy Medical History: Reports: None GI Medical History: Denies: Cirrhosis, Hepatitis Musculoskeltal Medical History: Reports: Arthritis - osteoarthritis to bilateral knees Denies: Fibromyalgia Skin Medical History: Denies: Eczema, Psoriasis Psychiatric Medical History: Denies: Alcohol Dependency, Substance Abuse, Tobacco Dependency Traumatic Medical History: Reports: None Hematology: Denies: Anemia, Bleeding Tendencies Infectious Medical History: Reports: None Past Surgical History Past Surgical History: Reports: Other - Abscess incision and drainage Social History Information Source: Patient Lives with: Spouse/Significant other Smoking Status: Former Smoker Frequency of Alcohol Use: None Hx Recreational Drug Use: No Drugs: None Hx Prescription Drug Abuse: No - Advance Directive Resuscitation Status: Full Code Surrogate healthcare decision maker:: [facility] Family History Family History: Arthritis, DM, Hypertension, Malignancy Parental Family History Reviewed: Yes Children Family History Reviewed: No Sibling(s) Family History Reviewed.: Yes Medication/Allergy Home Medications: Famotidine [Pepcid 20 mg Tablet] 20 mg PO DAILY 02/23/19 Metformin HCl 1,000 mg PO BID 02/23/19 Omeprazole 20 mg PO DAILY #30 capsule. 02/23/19 Sucralfate [Carafate 1 gm Tablet] 1 gm PO ACHS #120 tablet 02/23/19 Allergies/Adverse Reactions: No Known Allergies Allergy (Verified 02/23/19 20:05) Review of Systems Constitutional: PRESENT: as per HPI, chills. ABSENT: fever(s) Eyes: ABSENT: visual disturbances, other - Eye pain Ears: ABSENT: hearing changes, other - Ear pain Nose, Mouth, and Throat: ABSENT: mouth pain, sore throat Cardiovascular: PRESENT: as per HPI, dyspnea on exertion, other - Lightheade dness and near syncope. ABSENT: chest pain, orthropnea, palpitations Respiratory: PRESENT: dyspnea. ABSENT: cough, hemoptysis Gastrointestinal: PRESENT: as per HPI, abdominal pain - Cramping, diarrhea, nausea, vomiting. ABSENT: coffee ground emesis, constipation, hematemesis, hematochezia, melena Genitourinary: ABSENT: dysuria, hematuria Musculoskeletal: ABSENT: deformity, joint swelling Integumentary: ABSENT: pruritus, rash Neurological: ABSENT: confusion, convulsions, focal weakness, memory loss Psychiatric: ABSENT: anxiety, depression Endocrine: ABSENT: cold intolerance, heat intolerance Hematologic/Lymphatic: ABSENT: easy bleeding, easy bruising Physical Exam Vital Signs: Temp Pulse Resp BP Pulse Ox 98.0 F 138 H 19 160/84 H 96 02/26/19 22:05 02/26/19 22:05 02/27/19 01:00 02/27/19 00:29 02/27/19 01:00 Intake & Output 02/25/19 02/26/19 02/27/19 23:59 23:59 23:59 Intake Total 1000 1000 Balance 1000 1000 Weight 182.7 kg General appearance: PRESENT: no acute distress, cooperative, morbidly obese Head exam: PRESENT: atraumatic, normocephalic Eye exam: ABSENT: conjunctival injection, scleral icterus Ear exam: PRESENT: normal external ear exam. ABSENT: bleeding, drainage Mouth exam: PRESENT: dry mucosa, neck supple Neck exam: ABSENT: JVD, thyromegaly, tracheal deviation Respiratory exam: PRESENT: clear to auscultation dale, symmetrical, unlabored Cardiovascular exam: PRESENT: RRR, tachycardia. ABSENT: clicks, gallop, rubs Pulses: PRESENT: normal radial pulses, normal dorsalis pedis pul Vascular exam: PRESENT: normal capillary refill. ABSENT: pallor GI/Abdominal exam: PRESENT: normal bowel sounds, soft, tenderness - Mild generalized tenderness Rectal exam: PRESENT: deferred Extremities exam: ABSENT: joint swelling, pedal edema Musculoskeletal exam: PRESENT: full ROM, normal inspection. ABSENT: tenderness Neurological exam: PRESENT: alert, oriented to person, oriented to place, oriented to time, oriented to situation, CN II-XII grossly intact. ABSENT: mot or sensory deficit Psychiatric exam: PRESENT: appropriate affect, normal mood Skin exam: PRESENT: dry, intact, warm. ABSENT: jaundice, rash, urticaria Results Laboratory Results: 02/27/19 00:54 02/27/19 00:54 02/26/19 02/27/19 02/27/19 22:40 00:54 00:54 WBC 17.2 H RBC 6.17 H Hgb 16.4 Hct 49.0 MCV 79 L MCH 26.6 L MCHC 33.5 RDW 13.0 Plt Count 371 Seg Neutrophils % 85.8 H Lymphocytes % 7.1 L Monocytes % 6.4 Eosinophils % 0.1 Basophils % 0.6 Absolute Neutrophils 14.7 H Absolute Lymphocytes 1.2 Absolute Monocytes 1.1 Absolute Eosinophils 0.0 Absolute Basophils 0.1 VBG pH VBG pCO2 VBG HCO3 VBG Base Excess Sodium Cancelled Potassium Cancelled Chloride Cancelled Carbon Dioxide Cancelled Anion Gap Cancelled BUN Cancelled Creatinine Cancelled Est GFR ( Amer) Cancelled Est GFR (Non-Af Amer) Cancelled Glucose Cancelled Lactic Acid 3.4 H Calcium Cancelled Total Bilirubin Cancelled AST Cancelled ALT Cancelled Alkaline Phosphatase Cancelled Total Protein Cancelled Albumin Cancelled Lipase Urine Color Urine Appearance Urine pH Ur Specific [place] Urine Protein Urine Glucose (UA) Urine Ketones Urine Blood Urine Nitrite Ur Leukocyte Esterase Urine WBC (Auto) Urine RBC (Auto) 02/27/19 02/27/19 02/27/19 00:54 00:54 00:54 WBC RBC Hgb Hct MCV MCH MCHC RDW Plt Count Seg Neutrophils % Lymphocytes % Monocytes % Eosinophils % Basophils % Absolute Neutrophils Absolute Lymphocytes Absolute Monocytes Absolute Eosinophils Absolute Basophils VBG pH Cancelled VBG pCO2 Cancelled VBG HCO3 Cancelled VBG Base Excess Cancelled Sodium 143.3 Potassium 5.3 H Chloride 103 Carbon Dioxide 20 L Anion Gap 20 H BUN 19 Creatinine 1.28 H Est GFR ( Amer) > 60 Est GFR (Non-Af Amer) > 60 Glucose 256 H Lactic Acid Calcium 10.5 H Total Bilirubin 0.6 AST 61 H ALT 100 H Alkaline Phosphatase 51 Total Protein 8.9 H Albumin 5.0 Lipase 111.3 Urine Color Urine Appearance Urine pH Ur Specific [place] Urine Protein Urine Glucose (UA) Urine Ketones Urine Blood Urine Nitrite Ur Leukocyte Esterase Urine WBC (Auto) Urine RBC (Auto) 02/27/19 02/27/19 02/27/19 03:25 03:50 03:50 WBC RBC Hgb Hct MCV MCH MCHC RDW Plt Count Seg Neutrophils % Lymphocytes % Monocytes % Eosinophils % Basophils % Absolute Neutrophils Absolute Lymphocytes Absolute Monocytes Absolute Eosinophils Absolute Basophils VBG pH 7.37 VBG pCO2 44.8 VBG HCO3 25.2 VBG Base Excess -0.5 Sodium Potassium Chloride Carbon Dioxide Anion Gap BUN Creatinine Est GFR ( Amer) Est GFR (Non-Af Amer) Glucose Lactic Acid 2.5 H Calcium Total Bilirubin AST ALT Alkaline Phosphatase Total Protein Albumin Lipase Urine Color NEETU Urine Appearance CLOUDY Urine pH 5.0 Ur Specific [place] 1.029 Urine Protein >=500 H Urine Glucose (UA) 50 H Urine Ketones TRACE H Urine Blood SMALL H Urine Nitrite NEGATIVE Ur Leukocyte Esterase NEGATIVE Urine WBC (Auto) 9 Urine RBC (Auto) 4 Impressions: Chest X-Ray 02/26/19 22:14 IMPRESSION: 1. No acute pulmonary findings. Assessment and Plan - Diagnosis (1) Clostridium difficile enterocolitis Is this a current diagnosis for this admission?: Yes Plan: Patient was started on oral vancomycin for treatment of his C. difficile ent erocolitis. He will be given supportive and symptomatic therapy to improve his feeling of well-being. He will be monitored with daily CBCs. (2) Acute gastritis without hemorrhage Qualifiers: Gastritis type: unspecified gastritis Qualified Code(s): K29.00 - Acute gastritis without bleeding Is this a current diagnosis for this admission?: Yes Plan: Patient be treated with IV fluids and antiemetics utilizing Zofran and Reglan to control his acute gastritis. He will be monitored with daily CBCs and metabolic profiles. (3) Hypovolemia due to dehydration Is this a current diagnosis for this admission?: Yes Plan: Patient will be treated with IV fluid replacement and electrolyte balance. He will be monitored with daily metabolic profiles and serum magnesium levels. (4) Diabetes mellitus type 2 in obese Is this a current diagnosis for this admission?: Yes Plan: Hemoglobin A1c will be obtained to evaluate the patient's current diabetic therapy and diabetic status. Patient should not be on metformin as it appears it may have precipitated some of his current problem. Initially he will be treated with a diabetic diet and sliding scale insulin before meals and at bedtime. He will be monitored with a daily metabolic profile. - Time Time Spent with patient: 15-24 minutes Medications reviewed and adjusted accordingly: Yes Anticipated discharge: Home - Inpatient Certification Based on my medical assessment, after consideration of the patient's comorbidities, presenting symptoms, or acuity I expect that the services needed warrant INPATIENT care.: Yes I certify that my determination is in accordance with my understanding of Medicare's requirements for reasonable and necessary INPATIENT services [42 CFR 412.3e].: Yes Medical Necessity: Failure to Improve With Outpatient Therapy, Significant Comorbidiites Make Outpatient Treatment Too Risky, Need Close Monitoring Due to Risk of Patient Decompensation, Need For IV Fluids, Need For Continuous Telemetry Monitoring, Risk of Complication if Not Cared For in Hospital
[2019-02-27] MEDS: METOCLOPRAMIDE HCL INJ/PF 10 MG/2 ML SDV IV SCH ×4 (07:30→21:31)
[2019-02-27 07:44] LABS: LIPASE 245.7 U/L (23-300)
[2019-02-27 08:20] LABS: URINE AMPHETAMINES SCREEN NEGATIVE; URINE BARBITURATES SCREEN NEGATIVE; URINE BENZODIAZEPINES SCREEN NEGATIVE; URINE COCAINE SCREEN NEGATIVE; URINE MARIJUANA (THC) SCREEN NEGATIVE; URINE METHADONE SCREEN NEGATIVE; URINE PHENCYCLIDINE SCREEN NEGATIVE
[2019-02-27] MEDS: PANTOPRAZOLE SODIUM 40 MG VIAL IV SCH ×2 (09:59→21:31)
[2019-02-27] MEDS: ACETAMINOPHEN 325 MG TABLET PO PRN (14:30)
[2019-02-27 15:51] LABS: ANION GAP 18 (5-19); BLOOD UREA NITROGEN 22 mg/dL (7-20); CALCIUM 9.9 mg/dL (8.4-10.2); CARBON DIOXIDE 17 mmol/L (22-30); CHLORIDE 104 mmol/L (98-107); GLUCOSE 166 mg/dL (75-110); POTASSIUM 5.3 mmol/L (3.6-5.0); SODIUM 138.9 mmol/L (137-145)
[2019-02-27] MEDS: GABAPENTIN 300 MG CAPSULE PO SCH (21:31)
[2019-02-27] MEDS: INSULIN REG, HUMAN 100 UNIT/ML 3 ML VIAL (PYX) SUBCUT PRN (21:32)
[2019-02-28] MEDS: ACETAMINOPHEN 325 MG TABLET PO PRN ×4 (02:09→18:22)
[2019-02-28] MEDS ORDERED: POTASSI CL 20 MEQ/50 ML RIDER 20 MEQ/50 ML RTUPB IV SCH (03:00)
[2019-02-28] MEDS: NORMAL SALINE 1000 ML 1,000 ML IV PRN ×2 (06:08→16:42)
[2019-02-28] MEDS: VANCOMYCIN HCL INJ 500 MG VIAL PO SCH ×3 (06:09→18:02)
[2019-02-28] MEDS: GABAPENTIN 300 MG CAPSULE PO SCH ×3 (06:09→21:13)
[2019-02-28] MEDS: HEPARIN SOD (PORCINE) 5,000 UNIT/ML 1 ML SYRINGE SUBCUT SCH ×3 (06:09→21:08)
[2019-02-28] MEDS ORDERED: METOPROLOL TARTRATE 25 MG TABLET PO ONE (06:15)
[2019-02-28 06:57] LABS: HEMATOCRIT 43.3 % (37.9-51.0); HEMOGLOBIN 14.6 g/dL (13.5-17.0); MEAN CORPUSCULAR HEMOGLOBIN 26.6 pg (27.0-33.4); MEAN CORPUSCULAR HGB CONC 33.7 g/dL (32.0-36.0); MEAN CORPUSCULAR VOLUME 79 fl (80-97); PLATELET COUNT 278 10^3/uL (150-450); RED BLOOD COUNT 5.49 10^6/uL (4.35-5.55); RED CELL DISTRIBUTION WIDTH 12.6 % (11.5-14.0); WHITE BLOOD COUNT 14.4 10^3/uL (4.0-10.5)
[2019-02-28 07:22] LABS: ANION GAP 17 (5-19); BLOOD UREA NITROGEN 18 mg/dL (7-20); CARBON DIOXIDE 16 mmol/L (22-30); CHLORIDE 101 mmol/L (98-107); CHOLESTEROL 106.92 mg/dL (0-200); GLUCOSE 171 mg/dL (75-110); SODIUM 133.8 mmol/L (137-145); TRIGLYCERIDES 139 mg/dL (<150)
[2019-02-28 07:32] LABS: DIRECT LDL 53 mg/dL (<100)
[2019-02-28 07:33] LABS: ABSOLUTE LYMPHOCYTES# (MANUAL) 1.3 10^3/uL (0.5-4.7); ABSOLUTE MONOCYTES # (MANUAL) 0.6 10^3/uL (0.1-1.4); ABSOLUTE NEUTROPHILS# (MANUAL) 12.5 10^3/uL (1.7-8.2); BASOPHILS % (MANUAL) 0 % (0-2); EOSINOPHILS % (MANUAL) 0 % (0-6); LYMPHOCYTES % (MANUAL) 9 % (13-45); MONOCYTES % (MANUAL) 4 % (3-13); SEGMENTED NEUTROPHILS % (MAN) 87 % (42-78); TOTAL CELLS COUNTED 100
[2019-02-28 07:35] LABS: FREE T3 3.83 pg/mL (2.77-5.27); FREE T4 (FREE THYROXINE) 1.32 ng/dL (0.78-2.19)
--- NOTE | 2019-02-28 07:35 | PDOC PROGRESS REPORT ---
Subjective Progress Note for:: 02/28/19 Subjective:: 2w UC cipro*1w for diarrhea. 2d ago diarrhea*10. Yesterday diarrhea*6. Diffuse muscle cramps. Gabapentin 300 helped burning feet. No drowsiness. Reason For Visit: ACUTE C. DIFFICILE ENTEROCOLITIS,ACUTE GASTRITIS, Physical Exam Vital Signs: Temp Pulse Resp BP Pulse Ox 100.5 F H 136 H 18 115/53 L 97 02/27/19 23:00 02/28/19 02:00 02/27/19 23:00 02/27/19 23:00 02/27/19 23:00 Intake & Output 02/26/19 02/27/19 02/28/19 07:59 07:59 07:59 Intake Total 3400 4000 Output Total 800 Balance 2600 4000 Weight 402 lb 12.552 oz 401 lb 3.861 oz General appearance: PRESENT: no acute distress Respiratory exam: PRESENT: clear to auscultation dale Cardiovascular exam: ABSENT: diastolic murmur, irregular rhythm, systolic murmur GI/Abdominal exam: PRESENT: tenderness - mild LUQ. ABSENT: mass, organolmegaly Extremities exam: ABSENT: pedal edema Neurological exam: PRESENT: oriented to situation Psychiatric exam: PRESENT: appropriate affect Results Laboratory Results: Abnormal - 24 hr 02/26/19 02/27/19 02/27/19 22:11 07:10 13:05 Potassium Carbon Dioxide BUN Glucose POC Glucose 231 H 154 H Hemoglobin A1c % 8.7 H 02/27/19 02/27/19 15:20 21:11 Potassium 5.3 H Carbon Dioxide 17 L BUN 22 H Glucose 166 H POC Glucose 172 H Hemoglobin A1c % Impressions: Chest X-Ray 02/26/19 22:14 IMPRESSION: 1. No acute pulmonary findings. Assessment & Plan - Diagnosis (1) Clostridium difficile enterocolitis Is this a current diagnosis for this admission?: Yes Plan: continue vanc (2) Type 2 diabetes mellitus with diabetic polyneuropathy Qualifiers: Diabetes mellitus chcf insulin use: without chcf use Qualified Code(s): E11.42 - Type 2 diabetes mellitus with diabetic polyneuropathy Is this a current diagnosis for this admission?: Yes Plan: increase gabapentin 600 tid (3) Morbid (severe) obesity due to excess calories Is this a current diagnosis for this admission?: Yes (4) Obstructive sleep apnea Is this a current diagnosis for this admission?: Yes (5) Lactic acidosis due to diabetes mellitus Is this a current diagnosis for this admission?: Yes Plan: I stopped metformin 2d ago. - Inpatient Certification Medical Necessity: Failure to Improve With Outpatient Therapy, Significant Comorbidiites Make Outpatient Treatment Too Risky, Need Close Monitoring Due to Risk of Patient Decompensation, Need For IV Fluids, Need For Continuous Telemetry Monitoring, Need for Pain Control, Risk of Complication if Not Cared For in Hospital, Risk of Diagnosis Which Will Require Inpatient Eval/Care/Monitoring
[2019-02-28 07:42] LABS: OVALOCYTES SLIGHT; POIKILOCYTOSIS SLIGHT; TEAR DROP CELLS SLIGHT
[2019-02-28 07:45] LABS: PLATELET COMMENT ADEQUATE
[2019-02-28 07:48] LABS: THYROID STIMULATING HORMONE 0.77 uIU/mL (0.47-4.68)
[2019-02-28 07:51] LABS: POTASSIUM 4.3 mmol/L (3.6-5.0)
[2019-02-28] MEDS: METOCLOPRAMIDE HCL INJ/PF 10 MG/2 ML SDV IV SCH (08:18)
[2019-02-28] MEDS: PANTOPRAZOLE SODIUM 40 MG VIAL IV SCH ×2 (09:43→21:13)
[2019-02-28] MEDS: MAGNESIUM OXIDE 400 MG TABLET PO SCH (09:44)
[2019-02-28] MEDS ORDERED: METOPROLOL TARTRATE 25 MG TABLET PO SCH (10:00)
[2019-02-28 10:06] LABS: URINE CREATININE 190.7 mg/dL (24-392); URINE PROTEIN 8.2 mg/dL (<12)
[2019-02-28] MEDS: ONDANSETRON HCL INJ/PF 4 MG/2 ML SDV IV PRN ×2 (12:06→18:53)
[2019-02-28] MEDS: INSULIN REG, HUMAN 100 UNIT/ML 3 ML VIAL (PYX) SUBCUT PRN ×2 (13:57→16:43)
[2019-02-28] MEDS: METOPROLOL TARTRATE 25 MG TABLET PO SCH (21:09)
[2019-03-01] MEDS: VANCOMYCIN HCL INJ 500 MG VIAL PO SCH ×5 (00:39→23:33)
[2019-03-01] MEDS: NORMAL SALINE 1000 ML 1,000 ML IV PRN ×3 (00:50→18:17)
[2019-03-01] MEDS: ACETAMINOPHEN 325 MG TABLET PO PRN (04:52)
[2019-03-01] MEDS: HEPARIN SOD (PORCINE) 5,000 UNIT/ML 1 ML SYRINGE SUBCUT SCH ×3 (05:00→21:47)
[2019-03-01] MEDS: GABAPENTIN 300 MG CAPSULE PO SCH (05:00)
[2019-03-01 06:25] LABS: ABSOLUTE MONOCYTES (AUTO) 0.8 10^3/uL (0.1-1.4); ABSOLUTE NEUT (AUTO) 4.7 10^3/uL (1.7-8.2); BASOPHILS % (AUTO) 0.5 % (0-2); EOSINOPHILS % (AUTO) 0.1 % (0-6); HEMATOCRIT 37.9 % (37.9-51.0); LYMPHOCYTES % (AUTO) 15.7 % (13-45); MEAN CORPUSCULAR HEMOGLOBIN 26.8 pg (27.0-33.4); MEAN CORPUSCULAR HGB CONC 34.3 g/dL (32.0-36.0); MEAN CORPUSCULAR VOLUME 78 fl (80-97); MONOCYTES % (AUTO) 12.4 % (3-13); PLATELET COUNT 224 10^3/uL (150-450); RED BLOOD COUNT 4.84 10^6/uL (4.35-5.55); SEGMENTED NEUTROPHILS % (AUTO) 71.3 % (42-78); TOTAL CELLS COUNTED % (AUTO) 100 %; WHITE BLOOD COUNT 6.5 10^3/uL (4.0-10.5)
[2019-03-01 06:42] LABS: ANION GAP 15 (5-19); BLOOD UREA NITROGEN 10 mg/dL (7-20); CALCIUM 8.2 mg/dL (8.4-10.2); CARBON DIOXIDE 19 mmol/L (22-30); CHLORIDE 102 mmol/L (98-107); GLUCOSE 127 mg/dL (75-110); POTASSIUM 3.5 mmol/L (3.6-5.0); SODIUM 135.7 mmol/L (137-145)
--- NOTE | 2019-03-01 07:47 | PDOC PROGRESS REPORT ---
Subjective Progress Note for:: 03/01/19 Subjective:: slightly better. Diffuse abdominal cramps at times. Fever yesterday. Reason For Visit: ACUTE C. DIFFICILE ENTEROCOLITIS,ACUTE GASTRITIS, Physical Exam Vital Signs: Temp Pulse Resp BP Pulse Ox 100.4 F 115 H 20 113/45 L 96 03/01/19 00:32 03/01/19 02:00 03/01/19 00:32 03/01/19 00:32 03/01/19 00:32 Intake & Output 02/27/19 02/28/19 03/01/19 07:59 07:59 07:59 Intake Total 3400 6000 3200 Output Total 800 279 Balance 2600 6000 2921 Weight 402 lb 12.552 oz 410 lb 15.066 oz 420 lb 3.217 oz General appearance: PRESENT: no acute distress Respiratory exam: PRESENT: clear to auscultation dale Cardiovascular exam: ABSENT: diastolic murmur, irregular rhythm, systolic murmur GI/Abdominal exam: PRESENT: tenderness - mild diffuse. ABSENT: mass, organolmegaly Extremities exam: ABSENT: pedal edema Neurological exam: PRESENT: oriented to situation Psychiatric exam: PRESENT: appropriate affect Results Laboratory Results: Labs- Last Values WBC 6.5 10^3/uL (4.0-10.5) 03/01/19 06:07 RBC 4.84 10^6/uL (4.35-5.55) 03/01/19 06:07 Hgb 13.0 g/dL (13.5-17.0) L 03/01/19 06:07 Hct 37.9 % (37.9-51.0) 03/01/19 06:07 MCV 78 fl (80-97) L 03/01/19 06:07 MCH 26.8 pg (27.0-33.4) L 03/01/19 06:07 MCHC 34.3 g/dL (32.0-36.0) 03/01/19 06:07 RDW 13.0 % (11.5-14.0) 03/01/19 06:07 Plt Count 224 10^3/uL (150-450) 03/01/19 06:07 Total Counted 100 02/28/19 06:25 Seg Neutrophils % 71.3 % (42-78) 03/01/19 06:07 Seg Neuts % (Manual) 87 % (42-78) H 02/28/19 06:25 Lymphocytes % 15.7 % (13-45) 03/01/19 06:07 Lymphocytes % (Manual) 9 % (13-45) L 02/28/19 06:25 Monocytes % 12.4 % (3-13) 03/01/19 06:07 Monocytes % (Manual) 4 % (3-13) 02/28/19 06:25 Eosinophils % 0.1 % (0-6) 03/01/19 06:07 Eosinophils % (Manual) 0 % (0-6) 02/28/19 06:25 Basophils % 0.5 % (0-2) 03/01/19 06:07 Basophils % (Manual) 0 % (0-2) 02/28/19 06:25 Absolute Neutrophils 4.7 10^3/uL (1.7-8.2) 03/01/19 06:07 Abs Neuts (Manual) 12.5 10^3/uL (1.7-8.2) H 02/28/19 06:25 Absolute Lymphocytes 1.0 10^3/uL (0.5-4.7) 03/01/19 06:07 Abs Lymphs (Manual) 1.3 10^3/uL (0.5-4.7) 02/28/19 06:25 Absolute Monocytes 0.8 10^3/uL (0.1-1.4) 03/01/19 06:07 Abs Monocytes (Manual) 0.6 10^3/uL (0.1-1.4) 02/28/19 06:25 Absolute Eosinophils 0.0 10^3/uL (0.0-0.6) 03/01/19 06:07 Absolute Eos (Manual) 0.0 10^3/uL (0.0-0.6) 02/28/19 06:25 Absolute Basophils 0.0 10^3/uL (0.0-0.2) 03/01/19 06:07 Abs Basophils (Manual) 0.0 10^3/uL (0.0-0.2) 02/28/19 06:25 Platelet Comment ADEQUATE 02/28/19 06:25 Poikilocytosis SLIGHT 02/28/19 06:25 Microcytosis SLIGHT 02/28/19 06:25 Tear Drop Cells SLIGHT 02/28/19 06:25 Ovalocytes SLIGHT 02/28/19 06:25 PT 13.6 SEC (11.4-15.4) 02/26/19 23:45 INR 0.99 02/26/19 23:45 VBG pH 7.37 (7.30-7.42) 02/27/19 03:50 VBG pCO2 44.8 mmHg (35-63) 02/27/19 03:50 VBG HCO3 25.2 mmol/L (20-32) 02/27/19 03:50 VBG Base Excess -0.5 mmol/L 02/27/19 03:50 Sodium 135.7 mmol/L (137-145) L 03/01/19 06:07 Potassium 3.5 mmol/L (3.6-5.0) L 03/01/19 06:07 Chloride 102 mmol/L (98-107) 03/01/19 06:07 Carbon Dioxide 19 mmol/L (22-30) L 03/01/19 06:07 Anion Gap 15 (5-19) 03/01/19 06:07 BUN 10 mg/dL (7-20) 03/01/19 06:07 Creatinine 0.82 mg/dL (0.52-1.25) 03/01/19 06:07 Est GFR ( Amer) > 60 (>60) 03/01/19 06:07 Est GFR (Non-Af Amer) > 60 (>60) 03/01/19 06:07 Glucose 127 mg/dL (75-110) H 03/01/19 06:07 POC Glucose 127 mg/dL (70-110) H 03/01/19 05:58 Hemoglobin A1c % 8.7 % (4.7-6.0) H 02/27/19 07:10 Lactic Acid 2.5 mmol/L (0.7-2.1) H 02/27/19 03:50 Calcium 8.2 mg/dL (8.4-10.2) L 03/01/19 06:07 Magnesium 1.6 mg/dL (1.6-2.3) 03/01/19 06:07 Total Bilirubin 0.6 mg/dL (0.2-1.3) 02/27/19 00:54 Direct Bilirubin 0.3 mg/dL (0.0-0.4) 02/27/19 00:54 Neonat Total Bilirubin Not Reportable 02/27/19 00:54 Neonat Direct Bilirubin Not Reportable 02/27/19 00:54 Neonat Indirect Bili Not Reportable 02/27/19 00:54 AST 61 U/L (17-59) H 02/27/19 00:54 ALT 100 U/L (21-72) H 02/27/19 00:54 Alkaline Phosphatase 51 U/L (38-126) 02/27/19 00:54 Total Protein 8.9 g/dL (6.3-8.2) H 02/27/19 00:54 Albumin 5.0 g/dL (3.5-5.0) 02/27/19 00:54 Triglycerides 139 mg/dL (<150) 02/28/19 06:25 Cholesterol 106.92 mg/dL (0-200) 02/28/19 06:25 LDL Cholesterol Direct 53 mg/dL (<100) 02/28/19 06:25 VLDL Cholesterol 28.0 mg/dL (10-31) 02/28/19 06:25 HDL Cholesterol 40 mg/dL (>40) 02/28/19 06:25 Amylase 49 U/L (30-110) 02/27/19 07:10 Lipase 245.7 U/L (23-300) 02/27/19 07:10 TSH 0.77 uIU/mL (0.47-4.68) 02/28/19 06:25 Free T4 1.32 ng/dL (0.78-2.19) 02/28/19 06:25 Free T3 pg/mL 3.83 pg/mL (2.77-5.27) 02/28/19 06:25 Urine Color NEETU 02/27/19 03:25 Urine Appearance CLOUDY 02/27/19 03:25 Urine pH 5.0 (5.0-9.0) 02/27/19 03:25 Ur Specific [place] 1.029 02/27/19 03:25 Urine Protein >=500 mg/dL (NEGATIVE) H 02/27/19 03:25 Urine Glucose (UA) 50 mg/dL (NEGATIVE) H 02/27/19 03:25 Urine Ketones TRACE mg/dL (NEGATIVE) H 02/27/19 03:25 Urine Blood SMALL (NEGATIVE) H 02/27/19 03:25 Urine Nitrite NEGATIVE (NEGATIVE) 02/27/19 03:25 Urine Bilirubin NEGATIVE (NEGATIVE) 02/27/19 03:25 Urine Urobilinogen 2.0 mg/dL (<2.0) H 02/27/19 03:25 Ur Leukocyte Esterase NEGATIVE (NEGATIVE) 02/27/19 03:25 Urine WBC (Auto) 9 /HPF 02/27/19 03:25 Urine RBC (Auto) 4 /HPF 02/27/19 03:25 U Hyaline Cast (Auto) 62 /LPF 02/27/19 03:25 Urine Bacteria (Auto) TRACE /HPF 02/27/19 03:25 Squamous Epi Cells Auto 1 /HPF 02/27/19 03:25 Urine Mucus (Auto) MANY /LPF 02/27/19 03:25 Urine Creatinine 190.7 mg/dL (24-392) 02/28/19 09:24 Protein/Creatinin Ratio 0.0 mg/mg (0.0-0.2) 02/28/19 09:24 Urine Total Protein 8.2 mg/dL (<12) 02/28/19 09:24 Urine Ascorbic Acid NEGATIVE (NEGATIVE) 02/27/19 03:25 Urine Opiates Screen UNCONFIRMED POSITIVE 02/27/19 03:25 Urine Methadone Screen NEGATIVE 02/27/19 03:25 Ur Barbiturates Screen NEGATIVE 02/27/19 03:25 Ur Phencyclidine Scrn NEGATIVE 02/27/19 03:25 Ur Amphetamines Screen NEGATIVE 02/27/19 03:25 U Benzodiazepines Scrn NEGATIVE 02/27/19 03:25 Urine Cocaine Screen NEGATIVE 02/27/19 03:25 U Marijuana (THC) Screen NEGATIVE 02/27/19 03:25 C. difficile Tox (PCR) POSITIVE (NEGATIVE) 02/27/19 03:25 02/27/19 03:25 Clean Catch Midstream Urine Culture - Final Mixed Urogenital Rhonda Impressions: Chest X-Ray 02/26/19 22:14 IMPRESSION: 1. No acute pulmonary findings. Assessment & Plan - Diagnosis (1) Clostridium difficile enterocolitis Is this a current diagnosis for this admission?: Yes Plan: consider IV vanc if much more fever (2) Type 2 diabetes mellitus with diabetic polyneuropathy Qualifiers: Diabetes mellitus long-term insulin use: without termite technician use Qualified Code(s): E11.42 - Type 2 diabetes mellitus with diabetic polyneuropathy Is this a current diagnosis for this admission?: Yes (3) Morbid (severe) obesity due to excess calories Is this a current diagnosis for this admission?: Yes (4) Obstructive sleep apnea Is this a current diagnosis for this admission?: Yes (5) Lactic acidosis due to diabetes mellitus Is this a current diagnosis for this admission?: Yes
[2019-03-01] MEDS: PANTOPRAZOLE SODIUM 40 MG VIAL IV SCH ×2 (09:14→21:52)
[2019-03-01] MEDS: METOPROLOL TARTRATE 25 MG TABLET PO SCH ×2 (09:15→21:52)
[2019-03-01] MEDS: MAGNESIUM OXIDE 400 MG TABLET PO SCH (09:15)
[2019-03-01] MEDS: ONDANSETRON HCL INJ/PF 4 MG/2 ML SDV IV PRN ×2 (11:54→20:34)
[2019-03-01] MEDS: GABAPENTIN 400 MG CAPSULE PO SCH ×2 (15:35→21:47)
[2019-03-02] MEDS: NORMAL SALINE 1000 ML 1,000 ML IV PRN ×2 (02:32→18:04)
[2019-03-02] MEDS: ACETAMINOPHEN 325 MG TABLET PO PRN ×3 (05:09→18:53)
[2019-03-02] MEDS: HEPARIN SOD (PORCINE) 5,000 UNIT/ML 1 ML SYRINGE SUBCUT SCH ×3 (05:09→21:03)
[2019-03-02] MEDS: GABAPENTIN 400 MG CAPSULE PO SCH ×3 (05:10→21:04)
[2019-03-02] MEDS: VANCOMYCIN HCL INJ 500 MG VIAL PO SCH ×3 (05:10→17:58)
[2019-03-02 05:22] LABS: ABSOLUTE EOSINOPHILS # (AUTO) 0.1 10^3/uL (0.0-0.6); ABSOLUTE LYMPHOCYTES (AUTO) 1.8 10^3/uL (0.5-4.7); ABSOLUTE MONOCYTES (AUTO) 0.8 10^3/uL (0.1-1.4); ABSOLUTE NEUT (AUTO) 4.1 10^3/uL (1.7-8.2); BASOPHILS % (AUTO) 0.5 % (0-2); EOSINOPHILS % (AUTO) 1.3 % (0-6); HEMATOCRIT 37.2 % (37.9-51.0); HEMOGLOBIN 12.6 g/dL (13.5-17.0); LYMPHOCYTES % (AUTO) 26.2 % (13-45); MEAN CORPUSCULAR HEMOGLOBIN 26.8 pg (27.0-33.4); MEAN CORPUSCULAR HGB CONC 33.8 g/dL (32.0-36.0); MEAN CORPUSCULAR VOLUME 79 fl (80-97); MONOCYTES % (AUTO) 12.3 % (3-13); PLATELET COUNT 222 10^3/uL (150-450); RED BLOOD COUNT 4.69 10^6/uL (4.35-5.55); RED CELL DISTRIBUTION WIDTH 13.1 % (11.5-14.0); SEGMENTED NEUTROPHILS % (AUTO) 59.7 % (42-78); TOTAL CELLS COUNTED % (AUTO) 100 %; WHITE BLOOD COUNT 6.9 10^3/uL (4.0-10.5)
[2019-03-02 05:45] LABS: ANION GAP 12 (5-19); BLOOD UREA NITROGEN 8 mg/dL (7-20); CALCIUM 8.3 mg/dL (8.4-10.2); CARBON DIOXIDE 19 mmol/L (22-30); CHLORIDE 109 mmol/L (98-107); GLUCOSE 110 mg/dL (75-110); POTASSIUM 3.6 mmol/L (3.6-5.0); SODIUM 139.7 mmol/L (137-145)
--- NOTE | 2019-03-02 08:13 | PDOC PROGRESS REPORT ---
Subjective Progress Note for:: 03/02/19 Subjective:: diarrhea*20 but stool forming up today. Less pain. Reason For Visit: ACUTE C. DIFFICILE ENTEROCOLITIS,ACUTE GASTRITIS, Physical Exam Vital Signs: Temp Pulse Resp BP Pulse Ox 98.8 F 95 18 123/56 L 94 03/02/19 05:30 03/02/19 05:30 03/02/19 05:30 03/02/19 05:30 03/02/19 05:30 Intake & Output 02/28/19 03/01/19 03/02/19 07:59 07:59 07:59 Intake Total 6000 3200 3800 Output Total 279 Balance 6000 2921 3800 Weight 410 lb 15.066 oz 420 lb 3.217 oz 420 lb 6.744 oz General appearance: PRESENT: no acute distress Respiratory exam: PRESENT: clear to auscultation dale Cardiovascular exam: ABSENT: diastolic murmur, irregular rhythm, systolic murmur GI/Abdominal exam: ABSENT: mass, organolmegaly, tenderness Extremities exam: ABSENT: pedal edema Neurological exam: PRESENT: oriented to situation Psychiatric exam: PRESENT: appropriate affect Results Laboratory Results: 03/02/19 05:00 03/02/19 05:00 03/02/19 03/02/19 05:00 05:00 WBC 6.9 RBC 4.69 Hgb 12.6 L Hct 37.2 L MCV 79 L MCH 26.8 L MCHC 33.8 RDW 13.1 Plt Count 222 Seg Neutrophils % 59.7 Lymphocytes % 26.2 Monocytes % 12.3 Eosinophils % 1.3 Basophils % 0.5 Absolute Neutrophils 4.1 Absolute Lymphocytes 1.8 Absolute Monocytes 0.8 Absolute Eosinophils 0.1 Absolute Basophils 0.0 Sodium 139.7 Potassium 3.6 Chloride 109 H Carbon Dioxide 19 L Anion Gap 12 BUN 8 Creatinine 0.73 Est GFR ( Amer) > 60 Est GFR (Non-Af Amer) > 60 Glucose 110 Calcium 8.3 L Magnesium 1.8 Impressions: Chest X-Ray 02/26/19 22:14 IMPRESSION: 1. No acute pulmonary findings. Assessment & Plan - Diagnosis (1) Clostridium difficile enterocolitis Is this a current diagnosis for this admission?: Yes Plan: add chlostyramine (2) Type 2 diabetes mellitus with diabetic polyneuropathy Qualifiers: Diabetes mellitus residential insulin use: without intermodal dispatcher use Qualified Code(s): E11.42 - Type 2 diabetes mellitus with diabetic polyneuropathy Is this a current diagnosis for this admission?: Yes Plan: much better since c diff addressed. Neuropathic pain much better on gapabentin 800 (3) Morbid (severe) obesity due to excess calories Is this a current diagnosis for this admission?: Yes (4) Obstructive sleep apnea Is this a current diagnosis for this admission?: Yes (5) Lactic acidosis due to diabetes mellitus Is this a current diagnosis for this admission?: Yes - Inpatient Certification Medical Necessity: Failure to Improve With Outpatient Therapy, Significant Comorbidiites Make Outpatient Treatment Too Risky, Need Close Monitoring Due to Risk of Patient Decompensation, Need For IV Fluids, Need for Pain Control, Risk of Complication if Not Cared For in Hospital, Risk of Diagnosis Which Will Require Inpatient Eval/Care/Monitoring
[2019-03-02] MEDS: METOPROLOL TARTRATE 25 MG TABLET PO SCH ×2 (10:27→21:04)
[2019-03-02] MEDS: MAGNESIUM OXIDE 400 MG TABLET PO SCH (10:27)
[2019-03-02] MEDS: CHOLESTYRAMINE/ASPARTAME 4 GM PACKET PO SCH ×2 (10:30→12:17)
[2019-03-02] MEDS: LACTOBACILLUS ACIDOPHILUS 250 MG TAB PO SCH (17:55)
[2019-03-02] MEDS: ONDANSETRON HCL INJ/PF 4 MG/2 ML SDV IV PRN (21:03)
[2019-03-03] MEDS: ACETAMINOPHEN 325 MG TABLET PO PRN (00:08)
[2019-03-03] MEDS: VANCOMYCIN HCL INJ 500 MG VIAL PO SCH ×2 (00:08→05:54)
[2019-03-03] MEDS: NORMAL SALINE 1000 ML 1,000 ML IV PRN (03:17)
[2019-03-03] MEDS: HEPARIN SOD (PORCINE) 5,000 UNIT/ML 1 ML SYRINGE SUBCUT SCH (05:35)
[2019-03-03] MEDS: GABAPENTIN 400 MG CAPSULE PO SCH (05:54)
--- NOTE | 2019-03-03 07:19 | PDOC DISCHARGE SUMMARY ---
General - Admit/Disc Date/PCP Admission Date/Primary Care Provider: 02/27/19 05:12 Discharge Date: 03/03/19 - Discharge Diagnosis (1) Clostridium difficile enterocolitis Is this a current diagnosis for this admission?: Yes (2) Type 2 diabetes mellitus with diabetic polyneuropathy Is this a current diagnosis for this admission?: Yes (3) Morbid (severe) obesity due to excess calories Is this a current diagnosis for this admission?: Yes (4) Obstructive sleep apnea Is this a current diagnosis for this admission?: Yes (5) Lactic acidosis due to diabetes mellitus Is this a current diagnosis for this admission?: Yes - Additional Information Resuscitation Status: Full Code Discharge Diet: Diabetic Discharge Activity: Activity As Tolerated Prescriptions: Gabapentin [Neurontin 300 mg Capsule] 300 mg PO Q8 #90 cap Glimepiride [Amaryl 1 mg Tablet] 1 mg PO QAM #10 tablet Metronidazole [Flagyl 250 mg Tablet] 250 mg PO Q8 #30 tablet Home Medications: Gabapentin [Neurontin 300 mg Capsule] 300 mg PO Q8 #90 cap 03/03/19 Glimepiride [Amaryl 1 mg Tablet] 1 mg PO QAM #10 tablet 03/03/19 Metronidazole [Flagyl 250 mg Tablet] 250 mg PO Q8 #30 tablet 03/03/19 History of Present Illness Patient complains of: diarrhea & cramps History of Present Illness: JACKIE GONZALEZ is a 28 year old male Hospital Course Hospital Course: On po vanc diarrhea eventually stopped. Sugar came down. Feels much better. Gabapentin helped feet. Physical Exam Vital Signs: Temp Pulse Resp BP Pulse Ox 99.6 F 85 16 118/51 L 96 03/03/19 01:00 03/03/19 02:00 03/03/19 01:00 03/03/19 01:00 03/03/19 01:00 Intake & Output 03/01/19 03/02/19 03/03/19 07:59 07:59 07:59 Intake Total 3200 3800 3331 Output Total 279 Balance 2921 3800 3331 Weight 420 lb 3.217 oz 420 lb 6.744 oz General appearance: PRESENT: no acute distress Respiratory exam: PRESENT: clear to auscultation dale Cardiovascular exam: ABSENT: diastolic murmur, irregular rhythm, systolic murmur GI/Abdominal exam: ABSENT: mass, organolmegaly, tenderness Extremities exam: ABSENT: pedal edema Neurological exam: PRESENT: oriented to situation Psychiatric exam: PRESENT: appropriate affect Results Laboratory Results: 02/27/19 03:25 Stool - Stool - Final 02/27/19 03:25 Stool - Stool Stool Culture - Final NO SALMONELLA, SHIGELLA, CAMPYLOBACTER, OR E.COLI 0157 RECOVERED. NEGATIVE FOR SHIGA TOXINS 1&2. Labs- Last Values WBC 6.9 10^3/uL (4.0-10.5) 03/02/19 05:00 RBC 4.69 10^6/uL (4.35-5.55) 03/02/19 05:00 Hgb 12.6 g/dL (13.5-17.0) L 03/02/19 05:00 Hct 37.2 % (37.9-51.0) L 03/02/19 05:00 MCV 79 fl (80-97) L 03/02/19 05:00 MCH 26.8 pg (27.0-33.4) L 03/02/19 05:00 MCHC 33.8 g/dL (32.0-36.0) 03/02/19 05:00 RDW 13.1 % (11.5-14.0) 03/02/19 05:00 Plt Count 222 10^3/uL (150-450) 03/02/19 05:00 Total Counted 100 02/28/19 06:25 Seg Neutrophils % 59.7 % (42-78) 03/02/19 05:00 Seg Neuts % (Manual) 87 % (42-78) H 02/28/19 06:25 Lymphocytes % 26.2 % (13-45) 03/02/19 05:00 Lymphocytes % (Manual) 9 % (13-45) L 02/28/19 06:25 Monocytes % 12.3 % (3-13) 03/02/19 05:00 Monocytes % (Manual) 4 % (3-13) 02/28/19 06:25 Eosinophils % 1.3 % (0-6) 03/02/19 05:00 Eosinophils % (Manual) 0 % (0-6) 02/28/19 06:25 Basophils % 0.5 % (0-2) 03/02/19 05:00 Basophils % (Manual) 0 % (0-2) 02/28/19 06:25 Absolute Neutrophils 4.1 10^3/uL (1.7-8.2) 03/02/19 05:00 Abs Neuts (Manual) 12.5 10^3/uL (1.7-8.2) H 02/28/19 06:25 Absolute Lymphocytes 1.8 10^3/uL (0.5-4.7) 03/02/19 05:00 Abs Lymphs (Manual) 1.3 10^3/uL (0.5-4.7) 02/28/19 06:25 Absolute Monocytes 0.8 10^3/uL (0.1-1.4) 03/02/19 05:00 Abs Monocytes (Manual) 0.6 10^3/uL (0.1-1.4) 02/28/19 06:25 Absolute Eosinophils 0.1 10^3/uL (0.0-0.6) 03/02/19 05:00 Absolute Eos (Manual) 0.0 10^3/uL (0.0-0.6) 02/28/19 06:25 Absolute Basophils 0.0 10^3/uL (0.0-0.2) 03/02/19 05:00 Abs Basophils (Manual) 0.0 10^3/uL (0.0-0.2) 02/28/19 06:25 Platelet Comment ADEQUATE 02/28/19 06:25 Poikilocytosis SLIGHT 02/28/19 06:25 Microcytosis SLIGHT 02/28/19 06:25 Tear Drop Cells SLIGHT 02/28/19 06:25 Ovalocytes SLIGHT 02/28/19 06:25 PT 13.6 SEC (11.4-15.4) 02/26/19 23:45 INR 0.99 02/26/19 23:45 VBG pH 7.37 (7.30-7.42) 02/27/19 03:50 VBG pCO2 44.8 mmHg (35-63) 02/27/19 03:50 VBG HCO3 25.2 mmol/L (20-32) 02/27/19 03:50 VBG Base Excess -0.5 mmol/L 02/27/19 03:50 Sodium 139.7 mmol/L (137-145) 03/02/19 05:00 Potassium 3.6 mmol/L (3.6-5.0) 03/02/19 05:00 Chloride 109 mmol/L (98-107) H 03/02/19 05:00 Carbon Dioxide 19 mmol/L (22-30) L 03/02/19 05:00 Anion Gap 12 (5-19) 03/02/19 05:00 BUN 8 mg/dL (7-20) 03/02/19 05:00 Creatinine 0.73 mg/dL (0.52-1.25) 03/02/19 05:00 Est GFR ( Amer) > 60 (>60) 03/02/19 05:00 Est GFR (Non-Af Amer) > 60 (>60) 03/02/19 05:00 Glucose 110 mg/dL (75-110) 03/02/19 05:00 POC Glucose 111 mg/dL (70-110) H 03/02/19 21:29 Hemoglobin A1c % 8.7 % (4.7-6.0) H 02/27/19 07:10 Lactic Acid 2.5 mmol/L (0.7-2.1) H 02/27/19 03:50 Calcium 8.3 mg/dL (8.4-10.2) L 03/02/19 05:00 Magnesium 1.8 mg/dL (1.6-2.3) 03/02/19 05:00 Total Bilirubin 0.6 mg/dL (0.2-1.3) 02/27/19 00:54 Direct Bilirubin 0.3 mg/dL (0.0-0.4) 02/27/19 00:54 Neonat Total Bilirubin Not Reportable 02/27/19 00:54 Neonat Direct Bilirubin Not Reportable 02/27/19 00:54 Neonat Indirect Bili Not Reportable 02/27/19 00:54 AST 61 U/L (17-59) H 02/27/19 00:54 ALT 100 U/L (21-72) H 02/27/19 00:54 Alkaline Phosphatase 51 U/L (38-126) 02/27/19 00:54 Total Protein 8.9 g/dL (6.3-8.2) H 02/27/19 00:54 Albumin 5.0 g/dL (3.5-5.0) 02/27/19 00:54 Triglycerides 139 mg/dL (<150) 02/28/19 06:25 Cholesterol 106.92 mg/dL (0-200) 02/28/19 06:25 LDL Cholesterol Direct 53 mg/dL (<100) 02/28/19 06:25 VLDL Cholesterol 28.0 mg/dL (10-31) 02/28/19 06:25 HDL Cholesterol 40 mg/dL (>40) 02/28/19 06:25 Amylase 49 U/L (30-110) 02/27/19 07:10 Lipase 245.7 U/L (23-300) 02/27/19 07:10 TSH 0.77 uIU/mL (0.47-4.68) 02/28/19 06:25 Free T4 1.32 ng/dL (0.78-2.19) 02/28/19 06:25 Free T3 pg/mL 3.83 pg/mL (2.77-5.27) 02/28/19 06:25 Urine Color NEETU 02/27/19 03:25 Urine Appearance CLOUDY 02/27/19 03:25 Urine pH 5.0 (5.0-9.0) 02/27/19 03:25 Ur Specific [place] 1.029 02/27/19 03:25 Urine Protein >=500 mg/dL (NEGATIVE) H 02/27/19 03:25 Urine Glucose (UA) 50 mg/dL (NEGATIVE) H 02/27/19 03:25 Urine Ketones TRACE mg/dL (NEGATIVE) H 02/27/19 03:25 Urine Blood SMALL (NEGATIVE) H 02/27/19 03:25 Urine Nitrite NEGATIVE (NEGATIVE) 02/27/19 03:25 Urine Bilirubin NEGATIVE (NEGATIVE) 02/27/19 03:25 Urine Urobilinogen 2.0 mg/dL (<2.0) H 02/27/19 03:25 Ur Leukocyte Esterase NEGATIVE (NEGATIVE) 02/27/19 03:25 Urine WBC (Auto) 9 /HPF 02/27/19 03:25 Urine RBC (Auto) 4 /HPF 02/27/19 03:25 U Hyaline Cast (Auto) 62 /LPF 02/27/19 03:25 Urine Bacteria (Auto) TRACE /HPF 02/27/19 03:25 Squamous Epi Cells Auto 1 /HPF 02/27/19 03:25 Urine Mucus (Auto) MANY /LPF 02/27/19 03:25 Urine Creatinine 190.7 mg/dL (24-392) 02/28/19 09:24 Protein/Creatinin Ratio 0.0 mg/mg (0.0-0.2) 02/28/19 09:24 Urine Total Protein 8.2 mg/dL (<12) 02/28/19 09:24 Urine Ascorbic Acid NEGATIVE (NEGATIVE) 02/27/19 03:25 Urine Opiates Screen UNCONFIRMED POSITIVE 02/27/19 03:25 Urine Methadone Screen NEGATIVE 02/27/19 03:25 Ur Barbiturates Screen NEGATIVE 02/27/19 03:25 Ur Phencyclidine Scrn NEGATIVE 02/27/19 03:25 Ur Amphetamines Screen NEGATIVE 02/27/19 03:25 U Benzodiazepines Scrn NEGATIVE 02/27/19 03:25 Urine Cocaine Screen NEGATIVE 02/27/19 03:25 U Marijuana (THC) Screen NEGATIVE 02/27/19 03:25 C. difficile Tox (PCR) POSITIVE (NEGATIVE) 02/27/19 03:25 Impressions: Chest X-Ray 02/26/19 22:14 IMPRESSION: 1. No acute pulmonary findings. Qualifiers - * PATIENT BEING DISCHARGED WITH ANY OF THE FOLLOWING DIAGNOSIS: No Acute Heart Failure Is this a Heart Failure Patient?: No Plan Discharge Plan: home on metronidazole. Has 3w appointment
[2019-03-03] MEDS: LACTOBACILLUS ACIDOPHILUS 250 MG TAB PO SCH (09:40)
[2019-03-03] MEDS: METOPROLOL TARTRATE 25 MG TABLET PO SCH (09:40)
[2019-03-03 09:55] VITALS: BP 130/84
== END 2019-03-03 10:55 | disposition home or self-care (01) | DRG 371 ==
LOC: ER 21:50 → EH 02-27 05:12 → 4W 02-27 13:19 → 4S 02-28 19:32
PROVIDERS: ADMIT Emergency Medicine; ATTEND Family Medicine
DX: A04.72 Enterocolitis due to Clostridium difficile, not specified as recurrent (principal); E11.10 Type 2 diabetes mellitus with ketoacidosis without coma; N17.9 Acute kidney failure, unspecified; Z68.43 Body mass index [BMI] 50.0-59.9, adult; E11.42 Type 2 diabetes mellitus with diabetic polyneuropathy; E66.01 Morbid (severe) obesity due to excess calories; E11.65 Type 2 diabetes mellitus with hyperglycemia; Z79.84 Long term (current) use of oral hypoglycemic drugs; R00.0 Tachycardia, unspecified; J45.909 Unspecified asthma, uncomplicated; M17.0 Bilateral primary osteoarthritis of knee; Z87.891 Personal history of nicotine dependence; Z82.61 Family history of arthritis; Z83.3 Family history of diabetes mellitus; K29.00 Acute gastritis without bleeding; E86.1 Hypovolemia; E86.0 Dehydration; G47.33 Obstructive sleep apnea (adult) (pediatric)
CPT/HCPCS: 36415; 71045; 80048; 80053; 80061; 80307; 81001; 82150; 82570; 82803; 82962; 83036; 83605; 83690; 83735; 84156; 84439; 84443; 84481; 85025; 85610; 87040; 87045; 87086; 87205; 87493; 93005; 93010; 96361; 96374; 96375; 99285; J0500; J1200; J1644; J1815; J1885; J2270; J2405; J2765; J3010; J3370; J3490; J7030; J7120; S0164

== ENCOUNTER 2019-09-03 10:09 | Emergency (ER) | payer SELFPAY ==
--- NOTE | 2019-09-03 10:25 | ER Document Report ---
ED Medical Screen (RME) - General Chief Complaint: Abdominal Pain Stated Complaint: ABDOMINAL PAIN Time Seen by Provider: 09/03/19 10:21 Mode of Arrival: Ambulatory Information source: Patient Notes: 29-year-old male presented to ED for complaint of epigastric and lower right abdominal pain the past year. He states it was worse this morning and felt like he was nauseated since. He states he has had ulcers been diagnosed with ulcers and is on medications for the patient denies smoking drinking or use of any drugs. Patient is alert oriented respirations regular nonlabored speaking in fu ll sentences I have greeted and performed a rapid initial assessment of this patient. A comprehensive ED assessment and evaluation of the patient, analysis of test results and completion of medical decision making process will be conducted by an additional ED providers. TRAVEL OUTSIDE OF THE [place] IN LAST 30 DAYS: No - Related Data Allergies/Adverse Reactions: No Known Allergies Allergy (Verified 09/03/19 10:18) Home Medications: omeprazole Past Medical History - Social History Chew tobacco use (# tins/day): No Frequency of alcohol use: Occasional Drug Abuse: None - Past Medical History Cardiac Medical History: Denies: Hx Atrial Fibrillation, Hx Coronary Artery Disease, Hx Hypercholesterolemia, Hx Hypertension Pulmonary Medical History: Reports: Hx Asthma, Hx Bronchitis Neurological Medical History: Denies: Hx Seizures Endocrine Medical History: Reports: Hx Diabetes Mellitus Type 2. 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 Denies: Hx Tonsillectomy - Immunizations Hx Diphtheria, Pertussis, Tetanus Vaccination: Yes
[2019-09-03 11:00] LABS: ABSOLUTE EOSINOPHILS # (AUTO) 0.1 10^3/uL (0.0-0.6); ABSOLUTE LYMPHOCYTES (AUTO) 2.5 10^3/uL (0.5-4.7); ABSOLUTE MONOCYTES (AUTO) 0.7 10^3/uL (0.1-1.4); BASOPHILS % (AUTO) 0.5 % (0-2); EOSINOPHILS % (AUTO) 1.3 % (0-6); HEMATOCRIT 42.2 % (37.9-51.0); HEMOGLOBIN 14.5 g/dL (13.5-17.0); LYMPHOCYTES % (AUTO) 26.7 % (13-45); MEAN CORPUSCULAR HEMOGLOBIN 27.6 pg (27.0-33.4); MEAN CORPUSCULAR HGB CONC 34.4 g/dL (32.0-36.0); MEAN CORPUSCULAR VOLUME 80 fl (80-97); MONOCYTES % (AUTO) 7.2 % (3-13); PLATELET COUNT 300 10^3/uL (150-450); RED BLOOD COUNT 5.26 10^6/uL (4.35-5.55); RED CELL DISTRIBUTION WIDTH 12.8 % (11.5-14.0); SEGMENTED NEUTROPHILS % (AUTO) 64.3 % (42-78); TOTAL CELLS COUNTED % (AUTO) 100 %; WHITE BLOOD COUNT 9.4 10^3/uL (4.0-10.5)
[2019-09-03 11:02] LABS: APPEARANCE,URINE CLEAR; BILIRUBIN,URINE NEGATIVE (NEGATIVE); COLOR,URINE YELLOW; GLUCOSE, URINE 50 mg/dL (NEGATIVE); KETONES,URINE NEGATIVE (NEGATIVE); PROTEIN,URINE NEGATIVE (NEGATIVE); URINE SPECIFIC GRAVITY 1.023; UROBILINOGEN,URINE NEGATIVE mg/dL (<2.0)
[2019-09-03 11:18] LABS: ALBUMIN 4.4 g/dL (3.5-5.0); ALKALINE PHOSPHATASE 61 U/L (38-126); ANION GAP 16 (5-19); ASPARTATE AMINO TRANSFERASE 54 U/L (17-59); BILIRUBIN,DIRECT 0.2 mg/dL (0.0-0.4); BILIRUBIN,TOTAL 0.7 mg/dL (0.2-1.3); BLOOD UREA NITROGEN 11 mg/dL (7-20); CARBON DIOXIDE 24 mmol/L (22-30); CHLORIDE 102 mmol/L (98-107); GLUCOSE 234 mg/dL (75-110); POTASSIUM 4.4 mmol/L (3.6-5.0); TOTAL PROTEIN 7.9 g/dL (6.3-8.2)
[2019-09-03] MEDS ORDERED: ONDANSETRON 4 MG TAB.RAPDIS PO ONE (14:02)
[2019-09-03] MEDS ORDERED: LIDOCAINE 2% VISCOUS SOLN 20 ML UDCUP PO ONE (14:02)
[2019-09-03] MEDS ORDERED: MAG HYDROX/AL HYDROX/SIMETH SUSP 30 ML UDCUP PO ONE (14:02)
--- NOTE | 2019-09-03 14:15 | ER Document Report ---
ED General - General Chief Complaint: Abdominal Pain Stated Complaint: ABDOMINAL PAIN Time Seen by Provider: 09/03/19 10:21 Primary Care Provider: ALBINA OLVERA MD [ACTIVE STAFF] - Follow up in 3-5 days CAREN SALAZAR MD [ACTIVE STAFF] - Follow up in 3-5 days (for GI follow up) Mode of Arrival: Ambulatory TRAVEL OUTSIDE OF THE [place] IN LAST 30 DAYS: No - HPI Notes: 29 year old male to the ED with C/O upper abdominal pain and vomiting that began today. States he has vomited several times. States that this will happen to him on occasion. States that he has been told he has ulcers but he has never had a EGD before. States he takes omeprazole and it usually controls his symptoms but not today. Denies fevers, chills, hematemesis, diarrhea, headache, chest pain, SOB, urinary complaints, flank pain, urinary frequency. - Related Data Allergies/Adverse Reactions: No Known Allergies Allergy (Verified 09/03/19 10:18) Home Medications: omeprazole Past Medical History - General Information source: Patient - Social History Smoking Status: Former Smoker Chew tobacco use (# tins/day): No Frequency of alcohol use: Occasional Drug Abuse: None Family History: Arthritis, DM, Hypertension, Malignancy Patient has suicidal ideation: No Patient has homicidal ideation: No - Past Medical History Cardiac Medical History: Denies: Hx Atrial Fibrillation, Hx Coronary Artery Disease, Hx H ypercholesterolemia, Hx Hypertension Pulmonary Medical History: Reports: Hx Asthma, Hx Bronchitis Neurological Medical History: Denies: Hx Seizures Endocrine Medical History: Reports: Hx Diabetes Mellitus Type 2. 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 Denies: Hx Tonsillectomy - Immunizations Hx Diphtheria, Pertussis, Tetanus Vaccination: Yes Review of Systems - Review of Systems Constitutional: denies: Chills, Fever EENT: No symptoms reported Cardiovascular: denies: Chest pain, Palpitations, Heart racing, Orthopnea, Dyspnea, Syncope, Dizziness, Lightheaded Respiratory: denies: Cough, Short of breath Gastrointestinal: Abdominal pain, Nausea, Vomiting. denies: Diarrhea, Constipation, Blood in vomit, Rectal bleeding Genitourinary: denies: Flank pain Male Genitourinary: No symptoms reported Musculoskeletal: No symptoms reported Skin: No symptoms reported Hematologic/Lymphatic: No symptoms reported Neurological/Psychological: No symptoms reported -: Yes All other systems reviewed and negative Physical Exam - Vital signs Vitals: Temp Pulse Resp BP Pulse Ox 98.9 F 107 H 16 157/101 H 98 09/03/19 10:16 09/03/19 10:16 09/03/19 10:16 09/03/19 10:16 09/03/19 10:16 Interpretation: Normal - General General appearance: Appears well, Alert - HEENT Head: Normocephalic, Atraumatic Eyes: Normal Pupils: PERRL - Respiratory Respiratory status: No respiratory distress Chest status: Nontender Breath sounds: Normal Chest palpation: Normal - Cardiovascular Rhythm: Regular Heart sounds: Normal auscultation Murmur: No - Abdominal Inspection: Morbidly Obese Distension: No distension Bowel sounds: Normal Tenderness: Tender - mild TTP over the epigastrium. Negative Martinez's sign, negative McBurney's point, no CVA Tenderness. Organomegaly: No organomegaly - Back Back: Normal, Nontender - Extremities General upper extremity: Normal inspection, Nontender, Normal color, Normal ROM, Normal temperature General lower extremity: Normal inspection, Nontender, Normal color, Normal ROM, Normal temperature, Normal weight bearing. No: Jesika's sign - Neurological Neuro grossly intact: Yes Cognition: Normal Orientation: AAOx4 Samina Coma Scale Eye Opening: Spontaneous Samina Coma Scale Verbal: Oriented Samina Coma Scale Motor: Obeys Commands Samina Coma Scale Total: 15 Speech: Normal Motor strength normal: LUE, RUE, LLE, RLE Sensory: Normal - Psychological Associated symptoms: Normal affect, Normal mood - Skin Skin Temperature: Warm Skin Moisture: Dry Skin Color: Normal Course - Re-evaluation Re-evalutation: Patient feeling better after fluids and antiemetics. Noted labs with noted elevated blood sugar. No evidence for DKA. HAve educated about his sugar and urged the importance of close outpatient follow up for his symptoms for GI and with PCP for sugar. Patient voices understanding and agrees with the plan. Impression; Epigastric abd pain, vomiting, hyperglycemia. Will follow the treatment plan as outlined above. Patient agrees with the plan. - Vital Signs Vital signs: Temp Pulse Resp BP Pulse Ox 98.4 F 110 H 20 145/100 H 99 09/03/19 14:50 09/03/19 14:50 09/03/19 14:50 09/03/19 14:50 09/03/19 14:50 - Laboratory Result Diagrams: 09/03/19 10:38 09/03/19 10:38 Laboratory results interpreted by me: 09/03/19 09/03/19 10:38 10:38 Glucose 234 H Urine Glucose (UA) 50 H Discharge - Discharge Clinical Impression: Epigastric abdominal pain, Nausea, Hyperglycemia Condition: Stable Disposition: HOME, SELF-CARE Instructions: Abdominal Pain ([facility]), Hyperglycemia ([facility]) Additional Instructions: FOLLOW UP WITH YOUR PRIMARY CARE PHYSICIAN IN THE NEXT 5 DAYS FOR FURTHER EVALUATION OF YOUR ELEVATED BLOOD SUGAR. TAKE MEDICINES PRESCRIBED. AVOID SPICY FOODS WELL SIGNIFICANTLY FATTY FOODS. FOLLOW UP WITH GI SPECIALIST. RETURN IF WORSENING SYMPTOMS IN THE NEXT 24 HOURS. Prescriptions: Ondansetron [Zofran Odt 4 mg Tablet] 1 - 2 tab PO Q4HP PRN #10 tab.rapdis PRN Reason: Sucralfate [Carafate] 1 gm PO QID #420 oral.susp Forms: Return to Work Referrals: ALBINA OLVERA MD [ACTIVE STAFF] - Follow up in 3-5 days CAREN SALAZAR MD [ACTIVE STAFF] - Follow up in 3-5 days (for GI follow up)
[2019-09-03 14:51] VITALS: BP 145/100
== END 2019-09-03 14:51 | disposition home or self-care (01) ==
LOC: ER 10:09
DX: R10.10 Upper abdominal pain, unspecified (principal); R11.2 Nausea with vomiting, unspecified; E11.65 Type 2 diabetes mellitus with hyperglycemia
CPT/HCPCS: 99284; 36415; 83690; 85025; 80053; 81001; S0119; J3490

== ENCOUNTER 2020-04-28 13:18 | Emergency (ER) | payer BC ==
[2020-04-28] MEDS ORDERED: NORMAL SALINE 1000 ML 1,000 ML IV ONE (14:03)
--- NOTE | 2020-04-28 14:08 | ER Document Report ---
ED Medical Screen (RME) - General Chief Complaint: Abscess Stated Complaint: ABSCESS/SIDE Time Seen by Provider: 04/28/20 14:01 Notes: HPI: 30-year-old male presenting for possible abscess to the right chest wall. States it started 2 to 3 days ago. States when he does get abscesses they tend to go deeper into the soft tissues. Patient has had fever up to 101. Has had nausea with this. Also reports a very slight cough. No recent travel or known COVID exposures. PHYSICAL EXAMINATION: Patient is moderately tachycardic. There is an indurated tender area just under the right breast in the lower right chest wall, secondary to body habitus limited exam for size I have greeted and performed a rapid initial assessment of this patient. A comprehensive ED assessment and evaluation of the patient, analysis of test results and completion of medical decision making process will be conducted by an additional ED providers. TRAVEL OUTSIDE OF THE [place] IN LAST 30 DAYS: No - Related Data Allergies/Adverse Reactions: No Known Allergies Allergy (Verified 09/03/19 10:18) Past Medical History - Past Medical History Cardiac Medical History: Denies: Hx Atrial Fibrillation, Hx Coronary Artery Disease, Hx Hypercholesterolemia, Hx Hypertension Pulmonary Medical History: Reports: Hx Asthma, Hx Bronchitis Neurological Medical History: Denies: Hx Seizures Endocrine Medical History: Reports: Hx Diabetes Mellitus Type 2. 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 Denies: Hx Tonsillectomy - Immunizations Hx Diphtheria, Pertussis, Tetanus Vaccination: Yes Physical Exam - Vital signs Vitals: Temp Pulse Resp BP Pulse Ox 98.8 F 127 H 18 176/93 H 97 04/28/20 13:23 04/28/20 13:23 04/28/20 13:23 04/28/20 13:23 04/28/20 13:23 Course - Vital Signs Vital signs: Temp Pulse Resp BP Pulse Ox 98.8 F 127 H 18 176/93 H 97 04/28/20 13:23 04/28/20 13:23 04/28/20 13:23 04/28/20 13:23 04/28/20 13:23
[2020-04-28 17:17] LABS: ABSOLUTE BASOPHILS # (AUTO) 0.1 10^3/uL (0.0-0.2); ABSOLUTE EOSINOPHILS # (AUTO) 0.2 10^3/uL (0.0-0.6); ABSOLUTE LYMPHOCYTES (AUTO) 2.4 10^3/uL (0.5-4.7); ABSOLUTE MONOCYTES (AUTO) 0.8 10^3/uL (0.1-1.4); ABSOLUTE NEUT (AUTO) 6.7 10^3/uL (1.7-8.2); BASOPHILS % (AUTO) 0.8 % (0-2); EOSINOPHILS % (AUTO) 1.9 % (0-6); HEMATOCRIT 46.6 % (37.9-51.0); LYMPHOCYTES % (AUTO) 23.8 % (13-45); MEAN CORPUSCULAR HEMOGLOBIN 27.8 pg (27.0-33.4); MEAN CORPUSCULAR HGB CONC 34.4 g/dL (32.0-36.0); MEAN CORPUSCULAR VOLUME 81 fl (80-97); MONOCYTES % (AUTO) 8.1 % (3-13); PLATELET COUNT 344 10^3/uL (150-450); RED BLOOD COUNT 5.77 10^6/uL (4.35-5.55); RED CELL DISTRIBUTION WIDTH 12.9 % (11.5-14.0); SEGMENTED NEUTROPHILS % (AUTO) 65.4 % (42-78); TOTAL CELLS COUNTED % (AUTO) 100 %; WHITE BLOOD COUNT 10.3 10^3/uL (4.0-10.5)
--- NOTE | 2020-04-28 17:34 | RADIOLOGY REPORT (SQ) ---
EXAM DESCRIPTION: U/S CHEST IMAGES COMPLETED DATE/TIME: 04/28/2020 5:18 pm REASON FOR STUDY: eval poss abscess lower right chest wall/breast COMPARISON: None. TECHNIQUE: Dynamic and static grayscale images acquired of the localized site of clinical concern an d recorded on PACS. Additional selected color Doppler and spectral images recorded. SITE OF CONCERN: Right anterior chest wall LIMITATIONS: None. FINDINGS: SKIN AND SUBCUTANEOUS TISSUES: In the superficial to mid subcutaneous tissues, there is a hypoechoic mass with internal complexity, relatively non vascular. This measures 1.5 x 1.9 x 1.0 cm. No clear tract extending to the skin surface. The lesion is probably a complicated fluid collectio n. DEEP SOFT TISSUES/MUSCLES: No masses. No fluid collections. No edema. VASCULAR: No increased or decreased vascularity. No occlusions. OTHER: No other significant finding. IMPRESSION: Mass in the region of interest is probably complicated fluid. This could represent eric jocelyn or abscess. TECHNICAL DOCUMENTATION: JOB ID: [id number] 2010 [employer]- All Rights Reserved Reading location - IP/workstation name: [email or web address]
[2020-04-28 17:37] LABS: ALBUMIN 4.4 g/dL (3.5-5.0); ALKALINE PHOSPHATASE 104 U/L (38-126); ANION GAP 11 (5-19); ASPARTATE AMINO TRANSFERASE 39 U/L (17-59); BILIRUBIN,TOTAL 0.5 mg/dL (0.2-1.3); BLOOD UREA NITROGEN 12 mg/dL (7-20); CALCIUM 10.3 mg/dL (8.4-10.2); CARBON DIOXIDE 27 mmol/L (22-30); CHLORIDE 99 mmol/L (98-107); GLUCOSE 389 mg/dL (75-110); POTASSIUM 4.6 mmol/L (3.6-5.0)
[2020-04-28] MEDS ORDERED: ACETAMINOPHEN 325 MG TABLET PO ONE (18:09)
[2020-04-28] MEDS ORDERED: LIDOCAINE 1%/EPINEPHRINE INJ 20 ML VIAL INJ ONE (18:12)
--- NOTE | 2020-04-28 18:15 | ER Document Report ---
ED General - General Chief Complaint: Abscess Stated Complaint: ABSCESS/SIDE Time Seen by Provider: 04/28/20 14:01 Notes: 30-year-old male with past medical history of diabetes, back pain and reoccurring abscesses presents today with a tender indurated warm to the touch area on the right chest under his right pec. States this is going on for 2 to 3 days. Patient also reports that he has had fevers, chills, intermittent nonproductive cough, diarrhea and mild epigastric pain since his abscess developed. Notes mild nausea but no vomiting. No increase in urinary frequency or urgency. Has been able to eat and drink today. His general symptoms have improved since yesterday. States he typically runs tachycardic. He has no known recent travel. No known COVID contacts. States he had a fever at home this morning before coming to the ER. Took tylenol around 10 AM. Currently afebrile in the emergency department. Had an abscess drained around July of last year. TRAVEL OUTSIDE OF THE [place] IN LAST 30 DAYS: No - Related Data Allergies/Adverse Reactions: amoxicillin [From Augmentin] Allergy (Verified 04/28/20 16:31) clavulanic acid [From Augmentin] Allergy (Verified 04/28/20 16:31) Home Medications: tylenol Past Medical History - Social History Smoking Status: Unknown if Ever Smoked Family History: Arthritis, DM, Hypertension, Malignancy - Past Medical History Cardiac Medical History: Denies: Hx Atrial Fibrillation, Hx Coronary Artery Disease, Hx Hypercholesterolemia, Hx Hypertension Pulmonary Medical History: Reports: Hx Asthma, Hx Bronchitis Neurological Medical History: Denies: Hx Seizures Endocrine Medical History: Reports: Hx Diabetes Mellitus Type 2. 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 Denies: Hx Tonsillectomy - Immunizations Hx Diphtheria, Pertussis, Tetanus Vaccination: Yes Review of Systems - Review of Systems Constitutional: See HPI EENT: No symptoms reported Cardiovascular: No symptoms reported Respiratory: See HPI Gastrointestinal: See HPI Genitourinary: No symptoms reported Male Genitourinary: No symptoms reported Musculoskeletal: See HPI Skin: See HPI Neurological/Psychological: No symptoms reported Physical Exam - Vital signs Vitals: Temp Pulse Resp BP Pulse Ox 98.8 F 127 H 18 176/93 H 97 04/28/20 13:23 04/28/20 13:23 04/28/20 13:23 04/28/20 13:23 04/28/20 13:23 Interpretation: Hypertensive, Tachycardic - Notes Notes: Adult General: GENERAL: Alert, interacts well. No acute distress HEAD: Normocephalic, atraumatic EYES:Extraocular movements intact. ENT: Oral mucosa moist, tongue midline. Oropharynx unremarkable. Airway patent. Nares patent. No Trismus. NECK: Full range of motion. Supple. Trachea midline. No lymphadenopathy. LUNGS: Clear to auscultation bilaterally, no wheezes, rales, or rhonchi. No respiratory distress. Nontender chest wall. HEART: Regular rate and rhythm. No murmurs, rubs or gallops. ABDOMEN: Soft, mild tenderness to epigastric region. Enlarged abdomen, no distention. Bowel sounds present in all 4 quadrants. No rebound, guarding or masses. GENITOURINARY: Deferred EXTREMITIES: Moves all 4 extremities spontaneously. BACK: Moves all extremities with full range of motion. NEUROLOGICAL: Alert and oriented x3. Normal speech. Strength 5/ 5 in all extremities. PSYCH: Normal affect, normal mood. SKIN: Warm, tender area of induration on right anterior chest, when palpated, white drainage expressed. Dry, normal turgor. Course - Re-evaluation Re-evalutation: 04/28/20 22:39 Chest ultrasound shows hematoma vs abscess. As I was able to express purulent discharge, I will incise and drain the abscess. Patient agrees to procedure. Abscess was incised and drained and patient tolerated procedure. Abxs ordered. Discussed with patient he will be taking antibiotics. I discussed that patients CXR showed no acute findings. His blood sugars were elevated. Potassium was normal. EKG showed sinus tachycardia. Urinalysis showed glucose in the urine and trace ketones. Offered to better control patients sugars but declines. He is ready to go home. Patients pulse has decreased to 102 and patient has remainded afebrile. Pending blood culture results. Will treat with metformin at this time. I discussed the need to follow up with his primary care to better control his sugars and his tachycardia as he states he is always tachycardic. I also discussed return precautions to the emergency department to include worsening symptoms and the development of new symptoms. Patient acknowledges and verbalizes understanding of instructions and plan. All questions answered.Patient was also instructed via nursing staff about person under inve stigation instructions. - Vital Signs Vital signs: Temp Pulse Resp BP Pulse Ox 97.5 F 101 H 20 149/79 H 97 04/28/20 20:22 04/28/20 20:22 04/28/20 20:22 04/28/20 20:22 04/28/20 20:22 - Laboratory Result Diagrams: 04/28/20 16:49 04/28/20 16:49 Laboratory results interpreted by me: 04/28/20 04/28/20 04/28/20 16:49 16:49 18:22 RBC 5.77 H Sodium 136.6 L Glucose 389 H Calcium 10.3 H ALT 54 H Urine Glucose (UA) >=500 H Urine Ketones TRACE H - EKG Interpretation by Me Additional EKG results interpreted by me: 04/28/20 22:32 Sinus tachycardia at 112. Pr interval of 148. Qtc 437. No st segment elevation. Procedures - Incision and Drainage Right Anterior Chest Type: Simple Anesthetic type: 1% Lidocaine w/epi Incision Method: Incision made by scalpel Notes: 04/28/20 22:34 Area cleaned with betadine. Site was anesthetized with 1% lidocaine and epinephrine. 1 cm incision made on right anterior chest. Purulent drainage was expressed. Abscess was explored throughly. Bleeding was minimal. Wound was packed with iodoform gauze.Cleaned and covered with tegaderm. Patient tolerated procedure without complications. Post procedure care discussed with patient and return precautions given. Discharge - Discharge Clinical Impression: Abscess, Chills, Person under investigation for COVID-19 Diabetes Qualifiers: Diabetes mellitus type: type 2 Diabetes mellitus terminal superintendent insulin use: without terminal superintendent use Diabetes mellitus complication status: with hyperglycemia Qualified Code(s): E11.65 - Type 2 diabetes mellitus with hyperglycemia Condition: Stable Disposition: HOME, SELF-CARE Instructions: Abscess ([facility]), Post Incision and Drainage Additional Instructions: Abscess has been drained. Packing material was applied. Please keep area clean and dry. Please follow-up with your primary care provider or the emergency de partment for wound check in 24 to 48 hours. Please return to the emergency department if you have fever, chills, purulent discharge or erythema or an elevated temperature or development of new symptoms. I prescribed an antibiotic to take. Please take medication as prescribed. You may take Tylenol and ibuprofen for pain relief. Your blood sugars were also elevated at this visit. I am prescribing the metformin to take twice daily. Follow-up with your primary care provider for additional follow-up with your blood sugars. At the present investigation for COVID-19, the [place] Department of Health and Human Services (division on public health) advises you to adhere to the following guidance until your test results are reported to you. If your test result is positive, you will receive additional formation from your provider in your local health department at that time. Remain at home until you are cleared by the health provider or public health authorities. Keep a log of visitors to your home, notify any visitors to your home of your isolation status. If you plan to move to a new address of the country, notify the local health department in your County. Call your doctor or seek care if you have emergent medical need. Before seeking medical care, call him to get instructions from the provider before arriving at the medical office, clinic, or hospital. Notified them that you are being tested for the virus (COVID-19) so that arrangements can be made, as necessary, to prevent transmission to others in the healthcare setting. Next, notified the local health department in your county. If the medical emergency arises any need to call 911, and from the first resp onders that you are being tested for the virus that causes COVID-19. Next, notify the local health department and your county. Prescriptions: Clindamycin HCl 300 mg PO TID 7 Days #21 capsule Metformin HCl 500 mg PO BID 15 Days #30 tablet
[2020-04-28] MEDS ORDERED: ONDANSETRON 4 MG TAB.RAPDIS PO ONE (18:17)
--- NOTE | 2020-04-28 18:40 | RADIOLOGY REPORT (SQ) ---
EXAM DESCRIPTION: CHEST SINGLE VIEW IMAGES COMPLETED DATE/TIME: 04/28/2020 6:24 pm REASON FOR STUDY: cough, sob COMPARISON: 02/26/2019 EXAM PARAMETERS: NUMBER OF VIEWS: One view. TECHNIQUE: Single frontal radiographic view of the chest acquired. RADIATION DOSE: NA LIMITATIONS: None. FINDINGS: LUNGS AND PLEURA: No opacities, masses or pneumothorax. No pleural effusion. MEDIASTINUM AND HILAR STRUCTURES: No masses. Contour normal. HEART AND VASCULAR STRUCTURES: Heart normal in size. Normal vasculature. BONES: No acute findings. HARDWARE: None in the chest. OTHER: No other significant finding. IMPRESSION: NO ACUTE RADIOGRAPHIC FINDING IN THE CHEST. TECHNICAL DOCUMENTATION: JOB ID: [id number] 2010 [employer]- All Rights Reserved Reading location - IP/workstation name: [email or web address]
[2020-04-28] MEDS ORDERED: HYDROCODONE/ACETAMINOPHEN 5-325 MG TABLET PO ONE (20:19)
[2020-04-28 20:27] VITALS: BP 149/79
[2020-04-28 20:28] LABS: APPEARANCE,URINE CLEAR; BILIRUBIN,URINE NEGATIVE (NEGATIVE); COLOR,URINE YELLOW; GLUCOSE, URINE >=500 mg/dL (NEGATIVE); KETONES,URINE TRACE mg/dL (NEGATIVE); LEUKOCYTE ESTERASE,URINE NEGATIVE (NEGATIVE); NITRITE,URINE NEGATIVE (NEGATIVE); PROTEIN,URINE NEGATIVE (NEGATIVE); URINE SPECIFIC GRAVITY 1.031; UROBILINOGEN,URINE NEGATIVE mg/dL (<2.0)
--- NOTE | 2020-04-28 22:03 | EKG REPORT ---
SEVERITY:- ABNORMAL ECG - SINUS TACHYCARDIA RIGHT AXIS DEVIATION NONSPECIFIC T ABNORMALITIES, INFERIOR LEADS : Confirmed by: Alissa Levy MD 28-Apr-2020 22:02:10
== END 2020-04-28 20:46 | disposition home or self-care (01) ==
LOC: ER 13:18
DX: L02.213 Cutaneous abscess of chest wall (principal); R50.9 Fever, unspecified; Z20.828 Contact with and (suspected) exposure to other viral communicable diseases; E11.65 Type 2 diabetes mellitus with hyperglycemia
CPT/HCPCS: 93005; 99284; 96360; 36415; 87040; 85025; 87635; 80053; 81001; 71045; 76604; 93010; 10060; S0119; J3490; J7030; C9803

== ENCOUNTER 2020-05-12 08:05 | Observation (INO) | payer BC ==
[2020-05-12] MEDS ORDERED: MORPHINE SULFATE 10 MG/ML INJ IV ONE ×2 (10:06→13:21)
[2020-05-12] MEDS ORDERED: CLINDAMYCIN 600 MG/D5W RTU 600 MG/50 ML RTUPB IV ONE (10:06)
[2020-05-12] MEDS ORDERED: RINGERS SOLUTION,LACTATED 1,000 ML IV ONE (10:06)
[2020-05-12] MEDS ORDERED: ONDANSETRON HCL INJ/PF 4 MG/2 ML SDV IV ONE (10:06)
[2020-05-12] MEDS ORDERED: ACETAMINOPHEN 325 MG TABLET PO ONE (10:07)
--- NOTE | 2020-05-12 10:07 | ER Document Report ---
ED Skin Rash/Insect Bite/Abscs - General Chief Complaint: Abscess Stated Complaint: ABSCESS ON STOMACH Time Seen by Provider: 05/12/20 09:43 Mode of Arrival: Ambulatory Information source: Patient Notes: 30-year-old male past medical history significant for diabetes, chronic back pain and sinus tachycardia, sleep apnea, presents to the emergency room complaining of worsening abdominal pain from an abscess that he had I&D done at [place] to his lower abdomen on May 09. States he is taking antibiotics as prescribed. Has an appointment next week with the surgeon currently taking doxycycline and Bactrim. States the pain is gotten more severe so he decided to present to the emergency room. Denies any fevers. Has not noticed any discharge or draining from the wound. TRAVEL OUTSIDE OF THE [place] IN LAST 30 DAYS: No - Related Data Allergies/Adverse Reactions: amoxicillin [From Augmentin] Allergy (Verified 05/12/20 08:44) clavulanic acid [From Augmentin] Allergy (Verified 05/12/20 08:44) Past Medical History - General Information source: Patient - Social History Smoking Status: Former Smoker Chew tobacco use (# tins/day): No Frequency of alcohol use: Occasional Drug Abuse: None Family History: Arthritis, DM, Hypertension, Malignancy Patient has homicidal ideation: No - Past Medical History Cardiac Medical History: Denies: Hx Atrial Fibrillation, Hx Coronary Artery Disease, Hx Hypercholesterolemia, Hx Hypertension Pulmonary Medical History: Reports: Hx Asthma, Hx Bronchitis Neurological Medical History: Denies: Hx Seizures Endocrine Medical History: Reports: Hx Diabetes Mellitus Type 2. 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 Denies: Hx Tonsillectomy - Immunizations Hx Diphtheria, Pertussis, Tetanus Vaccination: Yes Review of Systems - Review of Systems Constitutional: No symptoms reported EENT: No symptoms reported Cardiovascular: No symptoms reported Respiratory: No symptoms reported Gastrointestinal: Abdominal pain. denies: Nausea, Vomiting Skin: Other - Erythema Neurological/Psychological: No symptoms reported -: Yes All other systems reviewed and negative Physical Exam - Vital signs Vitals: Temp Pulse Resp BP Pulse Ox 99.4 F 123 H 20 137/90 H 97 05/12/20 08:10 05/12/20 08:10 05/12/20 08:10 05/12/20 08:10 05/12/20 08:10 - General General appearance: Appears well, Alert In distress: Moderate - Respiratory Respiratory status: No respiratory distress Chest status: Nontender Breath sounds: Normal Chest palpation: Normal - Cardiovascular Rhythm: Tachycardia Heart sounds: Normal auscultation Murmur: No Friction rub: No Gallop: None auscultated - Abdominal Inspection: Morbidly Obese Distension: No distension Bowel sounds: Normal Tenderness: Tender - Diffuse tenderness on palpation. Organomegaly: No organomegaly - Neurological Neuro grossly intact: Yes Cognition: Normal Orientation: AAOx4 [place] Coma Scale Eye Opening: Spontaneous [place] Coma Scale Verbal: Oriented Samina Coma Scale Motor: Obeys Commands [place] Coma Scale Total: 15 Speech: Normal Motor strength normal: LUE, RUE, LLE, RLE Sensory: Normal - Skin Skin Temperature: Warm Skin Moisture: Dry Skin Color: Erythema Skin irregularity: Abscess, Erythema, Tender indurated area Location of irregularity: Abdomen Notes: Morbidly obese patient that has erythema from the lower abdomen to just below the umbilicus. It is warm and tender to palpation. Upon lifting his pendulous abdomen the area that was I&D started pouring out a moderate amount of pus and blood foul-smelling odor noticed. Course - Re-evaluation Re-evalutation: 05/12/20 10:00 While assessing the abscess to the lower abdomen. When I lifted his lower abdomen a moderate amount of blood and foul pus noted. Able to drain a moderate amount of pus and blood with pressure through the previous incision and drainage site. Gauze applied. Patient will need IV, meds, CT abdomen pelvis with IV contrast. 05/12/20 12:43 Counselled patient on on lab and CAT scan findings. Made aware of need for admission. Patient is agreeable to be admitted. He will be seen by a general surgeon Dr. Magana tomorrow and his hospitalist Dr. Crowder 05/13/20 20:34 05/13/20 20:35 - Vital Signs Vital signs: Temp Pulse Resp BP Pulse Ox 98.5 F 95 18 141/67 H 97 05/13/20 12:54 05/13/20 12:54 05/13/20 12:54 05/13/20 12:54 05/13/20 12:54 - Laboratory Result Diagrams: 05/13/20 04:54 05/13/20 04:54 Laboratory results interpreted by me: 05/12/20 05/12/20 05/12/20 11:00 11:00 11:00 WBC 11.2 H MCV 79 L Sodium 132.5 L Chloride 96 L Glucose 304 H Lactic Acid 2.5 H ALT 65 H - Diagnostic Test Radiology reviewed: Reports reviewed - Consults Dr. Don Time consulted: 12:55 Reason for consultation: 05/12/20 13:01 Phlegmonous with internal gas noted on CT abdomen, sepsis Consulted provider: will come to ER Dr. Crowder Time consulted: 13:27 Consulted provider: will come to ER Discharge - Discharge Clinical Impression: Abdominal abscess, Phlegmon Sepsis Qualifiers: Sepsis type: sepsis due to unspecified organism Sepsis acute organ dysfunction status: without acute organ dysfunction Qualified Code(s): A41.9 - Sepsis, unspecified organism Condition: Stable Disposition: ADMITTED OBSERVATION Admitting Provider: Surgicalist
[2020-05-12 11:14] LABS: ABSOLUTE BASOPHILS # (AUTO) 0.1 10^3/uL (0.0-0.2); ABSOLUTE EOSINOPHILS # (AUTO) 0.2 10^3/uL (0.0-0.6); ABSOLUTE LYMPHOCYTES (AUTO) 2.1 10^3/uL (0.5-4.7); ABSOLUTE MONOCYTES (AUTO) 1.1 10^3/uL (0.1-1.4); ABSOLUTE NEUT (AUTO) 7.8 10^3/uL (1.7-8.2); BASOPHILS % (AUTO) 0.9 % (0-2); EOSINOPHILS % (AUTO) 1.5 % (0-6); HEMOGLOBIN 14.4 g/dL (13.5-17.0); LYMPHOCYTES % (AUTO) 18.4 % (13-45); MEAN CORPUSCULAR HEMOGLOBIN 27.9 pg (27.0-33.4); MEAN CORPUSCULAR HGB CONC 35.1 g/dL (32.0-36.0); MEAN CORPUSCULAR VOLUME 79 fl (80-97); MONOCYTES % (AUTO) 9.5 % (3-13); PLATELET COUNT 329 10^3/uL (150-450); RED BLOOD COUNT 5.17 10^6/uL (4.35-5.55); RED CELL DISTRIBUTION WIDTH 12.8 % (11.5-14.0); SEGMENTED NEUTROPHILS % (AUTO) 69.7 % (42-78); TOTAL CELLS COUNTED % (AUTO) 100 %; WHITE BLOOD COUNT 11.2 10^3/uL (4.0-10.5)
--- NOTE | 2020-05-12 11:38 | RADIOLOGY REPORT (SQ) ---
EXAM DESCRIPTION: CT ABD/PELVIS WITH IV ONLY IMAGES COMPLETED DATE/TIME: 05/12/2020 11:17 am REASON FOR STUDY: abdominal pain/abscess COMPARISON: 10/14/2018 TECHNIQUE: CT scan of the abdomen and pelvis performed using helical scanning technique with dynamic intravenous contrast injection. No oral contrast. Images reviewed with lung, soft tissue, and bone windows. Reconstructed coronal and sagittal MPR images reviewed. Delayed images for evaluation of the urinary system also acquired. All images stored on PACS. All CT scanners at this facility use dose modulation, iterative reconstruction, and/or weight based d osing when appropriate to reduce radiation dose to as low as reasonably achievable (ALARA). [facility]: Dose Right [facility]: CareDose [facility]: Dose Right [facility]: Teradose 4D [facility]: Rösler miniDaT CONTRAST TYPE AND DOSE: contrast/concentration: Isovue 350.00 mmol/ml; Total Contrast Delivered: 100 .0 ml; Total Saline Delivered: 70.0 ml RENAL FUNCTION: None required. The patient is less than 50 years old. RADIATION DOSE: CT Rad equipment meets quality standard of care and radiation dose reduction techniq ues were employed. CTDIvol: 19.2 - 21.1 mGy. DLP: 2581 mGy-cm.. LIMITATIONS: None. FINDINGS: LOWER CHEST: No significant findings. No nodules or infiltrates. LIVER: Diffuse hepatic steatosis. No focal lesions. No intrahepatic ductal dilation. SPLEEN: Normal size. No focal lesions. PANCREAS: No masses. No significant calcifications. No adjacent inflammation or peripancreatic fluid collections. Pancreatic duct not dilated. GALLBLADDER: No identified stones by CT criteria. No inflammatory changes to suggest cholecystitis. ADRENAL GLANDS: No significant masses or asymmetry. RIGHT KIDNEY AND URETER: No solid masses. No significant calcifications. No hydronephrosis or hyd roureter. LEFT KIDNEY AND URETER: No solid masses. No significant calcifications. No hydronephrosis or hydr oureter. AORTA AND VESSELS: No aneurysm. No dissection. Renal arteries, SMA, celiac without stenosis. RETROPERITONEUM: No retroperitoneal adenopathy, hemorrhage or masses. BOWEL AND PERITONEAL CAVITY: No masses or inflammatory changes. No free fluid or peritoneal masses. APPENDIX: Normal. PELVIS: No mass. No free fluid. Normal bladder. ABDOMINAL WALL: There is an ill-defined subcutaneous phlegmonous collection along the left anterior l ower abdominal wall subcutaneous tissues measuring approximately 2.4 x 1.8 cm with focus of internal gas compatible with superficial abscess. No large drainable collection. No intraperitoneal extensio n. There is adjacent subcutaneous stranding. No discrete soft tissue masses. BONES: No significant or acute findings. OTHER: No other significant finding. IMPRESSION: 1. Ill-defined superficial subcutaneous phlegmonous collection along the lower left ant erior abdominal wall measuring approximately 2.4 x 1.8 cm with focus of internal gas. No large drain able collection. No intra-abdominal extension. 2. Hepatic steatosis. TECHNICAL DOCUMENTATION: JOB ID: [id number] Quality ID # [id number]: Final reports with documentation of one or more dose reduction techniques (e.g., Au tomated exposure control, adjustment of the mA and/or kV according to patient size, use of iterative reconstruction technique) 2010 [employer]- All Rights Reserved Reading location - IP/workstation name: [email or web address]
[2020-05-12 11:42] LABS: ALBUMIN 4.1 g/dL (3.5-5.0); ALKALINE PHOSPHATASE 59 U/L (38-126); ANION GAP 12 (5-19); ASPARTATE AMINO TRANSFERASE 48 U/L (17-59); BILIRUBIN,TOTAL 0.5 mg/dL (0.2-1.3); BLOOD UREA NITROGEN 10 mg/dL (7-20); CALCIUM 9.5 mg/dL (8.4-10.2); CARBON DIOXIDE 25 mmol/L (22-30); CHLORIDE 96 mmol/L (98-107); GLUCOSE 304 mg/dL (75-110); POTASSIUM 4.5 mmol/L (3.6-5.0); TOTAL PROTEIN 7.5 g/dL (6.3-8.2)
[2020-05-12] MEDS ORDERED: RINGERS SOLUTION,LACTATED 1,000 ML IV PRN (12:33)
[2020-05-12] MEDS ORDERED: DOPAMINE HCL/DEXTROSE 5%-WATER 800 MG/250 ML RTUINJ IV PRN (12:33)
[2020-05-12] MEDS ORDERED: AZTREONAM INJ 1 GM VIAL IV ONE (12:43)
[2020-05-12] MEDS ORDERED: NORMAL SALINE 1000 ML 1,000 ML IV ONE ×2 (13:02→16:49)
[2020-05-12] MEDS ORDERED: ONDANSETRON HCL INJ/PF 4 MG/2 ML SDV IV PRN ×3 (14:10→17:55)
[2020-05-12] MEDS ORDERED: MAG HYDROX/AL HYDROX/SIMETH SUSP 30 ML UDCUP PO PRN (14:10)
--- NOTE | 2020-05-12 14:10 | PDOC H&P ---
History of Present Illness Admission Date/PCP: ALBINA OLVERA MD Patient complains of: Abdominal wall pains History of Present Illness: JACKIE GONZALEZ is a 30 year old male diabetic with a sleep apnea had an I&D of abdominal wall abscess done in ED at [facility] 05/09/2020. Came to our ED with persistent abdominal pains. CT scan of the abdomen was done which showed subcutaneous abscess of the abdominal wall. Past Medical History Cardiac Medical History: Denies: Atrial Fibrillation, Coronary Artery Disease, Hyperlipidema, Hypertension Pulmonary Medical History: Reports: Asthma, Bronchitis Neurological Medical History: Denies: Seizures Endocrine Medical History: Reports: Diabetes Mellitus Type 2 Denies: Diabetes Mellitus Type 1, Hyperthyroidism, Hypothyroidism GI Medical History: Denies: Cirrhosis, Hepatitis Musculoskeltal Medical History: Reports: Arthritis - osteoarthritis to bilateral knees Denies: Fibromyalgia Skin Medical History: Denies: Eczema, Psoriasis Hematology: Denies: Anemia, Bleeding Tendencies Past Surgical History Past Surgical History: Reports: Other - Abscess incision and drainage Denies: Tonsillectomy Social History Smoking Status: Former Smoker Electronic Cigarette use?: No Frequency of Alcohol Use: None Hx Recreational Drug Use: No Drugs: None Hx Prescription Drug Abuse: No Family History Family History: Arthritis, DM, Hypertension, Malignancy Parental Family History Reviewed: Yes Children Family History Reviewed: No Sibling(s) Family History Reviewed.: No Medication/Allergy Home Medications: Glimepiride [Amaryl 1 mg Tablet] 1 mg PO QAM #10 tablet 03/03/19 Amlodipine Besylate [Norvasc 10 mg Tablet] 10 mg PO DAILY 05/12/20 Doxycycline Hyclate [Vibramycin 100 mg Tablet] 100 mg PO Q12 MDD FILLED 05/07 FOR 14 DAY SUPPLY 05/12/20 Duloxetine HCl [Cymbalta 20 Mg Capsule.Dr] 20 mg PO DAILY 05/12/20 Gabapentin 800 mg PO Q8 05/12/20 Hydralazine HCl [Apresoline 50 mg Tablet] 50 mg PO Q12 05/12/20 Insulin NPH Hum/Reg Insulin Hm [Relion Novolin 70-30 Vial] 20 units SUBCUT BIDBS 05/12/20 Lisinopril/Hydrochlorothiazide [Lisinopril-Hctz 20-25 mg Tab] 1 each PO DAILY 05/12/20 Sulfamethoxazole/Trimethoprim [Bactrim Ds Tablet] 2 each PO Q12 MDD FILLED 05/07 FOR 14 DAY SUPPLY 05/12/20 Allergies/Adverse Reactions: amoxicillin [From Augmentin] Allergy (Verified 05/12/20 08:44) clavulanic acid [From Augmentin] Allergy (Verified 05/12/20 08:44) Review of Systems Constitutional: PRESENT: chills Gastrointestinal: PRESENT: other - Abdominal wall pains Physical Exam Vital Signs: Temp Pulse Resp BP Pulse Ox 99.4 F 123 H 20 137/90 H 97 05/12/20 08:10 05/12/20 08:10 05/12/20 08:10 05/12/20 08:10 05/12/20 08:10 Intake & Output 05/11/20 05/12/20 05/13/20 06:59 06:59 06:59 Intake Total 1050 Balance 1050 Weight 185.5 kg General appearance: PRESENT: morbidly obese Head exam: PRESENT: atraumatic Neck exam: PRESENT: full ROM Respiratory exam: PRESENT: clear to auscultation dale Cardiovascular exam: PRESENT: tachycardia Pulses: PRESENT: normal radial pulses GI/Abdominal exam: PRESENT: tenderness - Tenderness on the abdominal wall around the previous IND side on the left lower quadrant area. The IND is about 1 cm long and draining's dark bloody fluid. Rectal exam: PRESENT: deferred Extremities exam: PRESENT: full ROM Neurological exam: PRESENT: alert, oriented to person, oriented to place, oriented to time, oriented to situation Psychiatric exam: PRESENT: appropriate affect Skin exam: PRESENT: normal color, warm Results Laboratory Results: 05/12/20 11:00 05/12/20 11:00 05/12/20 05/12/20 05/12/20 11:00 11:00 11:00 WBC 11.2 H RBC 5.17 Hgb 14.4 Hct 41.0 MCV 79 L MCH 27.9 MCHC 35.1 RDW 12.8 Plt Count 329 Seg Neutrophils % 69.7 Sodium 132.5 L Potassium 4.5 Chloride 96 L Carbon Dioxide 25 Anion Gap 12 BUN 10 Creatinine 0.61 Est GFR ( Amer) > 60 Glucose 304 H Lactic Acid 2.5 H Calcium 9.5 Total Bilirubin 0.5 AST 48 Alkaline Phosphatase 59 Total Protein 7.5 Albumin 4.1 Impressions: Abdomen/Pelvis CT 05/12/20 10:04 IMPRESSION: 1. Ill-defined superficial subcutaneous phlegmonous collection along the lower left anterior abdominal wall measuring approximately 2.4 x 1.8 cm with focus of internal gas. No large drainable collection. No intra- abdominal extension. 2. Hepatic steatosis. Assessment & Plan - Diagnosis (1) Abdominal abscess Is this a current diagnosis for this admission?: Yes (2) Diabetes mellitus type 2 in obese Is this a current diagnosis for this admission?: Yes (3) Obstructive sleep apnea Is this a current diagnosis for this admission?: Yes - Time Time Spent: 30 to 50 Minutes - Inpatient Certification Medical Necessity: Need for IV Antibiotics, Need for Surgery - Plan Summary Plan Summary: 10-year-old diabetic with sleep apnea post IND of left lower quadrant abdominal wall abscess in [facility] ED 05/09/2020. Came back to our ER with severe abdominal wall pains and draining dark bloody fluid from the I&D site. CT scan of the abdomen showed abscess of the subcutaneous area. Physical exam showed market tenderness around the IND site on the abdominal wall extending towards the midline. Plans: Hydrate Start IV antibiotics For a formal incision and drainage of abdominal wall abscess Medical consultation for diabetes and sleep apnea
[2020-05-12] MEDS ORDERED: DEXTROSE 40% GEL 15 GM TUBE PO PRN ×2 (14:20)
[2020-05-12] MEDS ORDERED: DEXTROSE 50%-WATER 25 GM/50 ML DISP.SYRIN IV PRN ×2 (14:20)
[2020-05-12] MEDS ORDERED: GLUCAGON,HUMAN RECOMB 1 MG INJ IM PRN (14:20)
[2020-05-12] MEDS ORDERED: IPRATROPIUM/ALBUTEROL 0.5-2.5 MG/3 ML AMPUL NEB PRN (14:28)
--- NOTE | 2020-05-12 14:42 | PDOC CONSULTATION ---
Consultation Consult Date: 05/12/20 Attending physician:: ZIYAD ALICEA Provider Consulted: TJ GEORGES Consult reason:: dm, htn, tachycardia History of Present Illness Admission Date/PCP: 05/12/20 14:07 ALBINA ARENAS MD Patient complains of: Abdominal pain and drainage History of Present Illness: JACKIE GONZALEZ is a 30 year old male with a history of recently diagnosed diabetes mellitus, obesity, hypertension, diabetic neuropathy, who presents to the hospital for evaluation of pain swelling and drainage from his pannus. Patient's states that this has been going on since a week ago at which time he went to [place] and had an incision and drainage performed on his abscess. He was subsequently discharged with Bactrim and doxycycline which she has been taking. However the site underneath his pannus continues to pain and have some purulent drainage. Of note, he was also recently diagnosed this month with diabetes mellitus and was started on Novolin 70/30 40 units twice a day. He states that he has been taking his meds diligently but his blood sugar has been ranging between 250-320s. He does not remember his hemoglobin A1c and does not know if he was diagnosed with type I or type 2 diabetes mellitus. His PCP is Dr Mini Arenas. He denies any chest pain, shortness of breath or chills. Past Medical History Cardiac Medical History: Denies: Atrial Fibrillation, Coronary Artery Disease, Hyperlipidema, Hypertension Pulmonary Medical History: Reports: Asthma, Bronchitis Neurological Medical History: Denies: Seizures Endocrine Medical History: Reports: Obesity, Other - Diabetes mellitus Denies: Hyperthyroidism, Hypothyroidism GI Medical History: Denies: Cirrhosis, Hepatitis Musculoskeltal Medical History: Reports: Arthritis - osteoarthritis to bilateral knees Denies: Fibromyalgia Skin Medical History: Denies: Eczema, Psoriasis Hematology: Denies: Anemia, Bleeding Tendencies Past Surgical History Past Surgical History: Reports: Other - Abscess incision and drainage Denies: Tonsillectomy Social History Smoking Status: Former Smoker Electronic Cigarette use?: No Frequency of Alcohol Use: None Hx Recreational Drug Use: No Drugs: None Hx Prescription Drug Abuse: No - Advance Directive Resuscitation Status: Full Code Family History Family History: Arthritis, DM, Hypertension, Malignancy Parental Family History Reviewed: Yes Children Family History Reviewed: NA Sibling(s) Family History Reviewed.: Yes Medication/Allergy Home Medications: Glimepiride [Amaryl 1 mg Tablet] 1 mg PO QAM #10 tablet 03/03/19 Amlodipine Besylate [Norvasc 10 mg Tablet] 10 mg PO DAILY 05/12/20 Doxycycline Hyclate [Vibramycin 100 mg Tablet] 100 mg PO Q12 MDD FILLED 05/07 FOR 14 DAY SUPPLY 05/12/20 Duloxetine HCl [Cymbalta 20 Mg Capsule.Dr] 20 mg PO DAILY 05/12/20 Gabapentin 800 mg PO Q8 05/12/20 Hydralazine HCl [Apresoline 50 mg Tablet] 50 mg PO Q12 05/12/20 Insulin NPH Hum/Reg Insulin Hm [Relion Novolin 70-30 Vial] 20 units SUBCUT BIDBS 05/12/20 Lisinopril/Hydrochlorothiazide [Lisinopril-Hctz 20-25 mg Tab] 1 each PO DAILY 05/12/20 Sulfamethoxazole/Trimethoprim [Bactrim Ds Tablet] 2 each PO Q12 MDD FILLED 05/07 FOR 14 DAY SUPPLY 05/12/20 Allergies/Adverse Reactions: amoxicillin [From Augmentin] Allergy (Verified 05/12/20 08:44) clavulanic acid [From Augmentin] Allergy (Verified 05/12/20 08:44) Review of Systems Constitutional: ABSENT: fatigue, weight loss Eyes: ABSENT: visual disturbances Nose, Mouth, and Throat: ABSENT: headache(s) Cardiovascular: ABSENT: chest pain Respiratory: ABSENT: cough, dyspnea Gastrointestinal: PRESENT: abdominal pain. ABSENT: nausea, vomiting Genitourinary: ABSENT: dysuria Integumentary: ABSENT: diaphoresis Neurological: ABSENT: confusion Psychiatric: ABSENT: anxiety, depression Endocrine: ABSENT: heat intolerance Hematologic/Lymphatic: ABSENT: easy bleeding Physical Exam Vital Signs: Temp Pulse Resp BP Pulse Ox 99.4 F 123 H 20 137/90 H 97 05/12/20 08:10 05/12/20 08:10 05/12/20 08:10 05/12/20 08:10 05/12/20 08:10 Intake & Output 05/11/20 05/12/20 05/13/20 06:59 06:59 06:59 Intake Total 1050 Balance 1050 Weight 185.5 kg General appearance: PRESENT: morbidly obese Head exam: PRESENT: normocephalic Mouth exam: PRESENT: tongue midline, other - Mallampati score 4. ABSENT: dry mucosa, laceration Neck exam: ABSENT: JVD Respiratory exam: PRESENT: clear to auscultation dale, unlabored. ABSENT: tachypnea, wheezes Cardiovascular exam: PRESENT: +S1, +S2, tachycardia. ABSENT: irregular rhythm GI/Abdominal exam: PRESENT: soft, tenderness - Underneath pannus at the site of drainage, other - Erythematous area in the midline underneath abdominal pannus with some drainage. ABSENT: firm, guarding, rebound, rigid Extremities exam: ABSENT: +2 edema Neurological exam: PRESENT: alert, awake, oriented to person, oriented to place, oriented to time, oriented to situation Psychiatric exam: ABSENT: agitated, anxious Focused psych exam: ABSENT: pressured speech Skin exam: ABSENT: jaundice Results Laboratory Results: 05/12/20 11:00 05/12/20 11:00 05/12/20 05/12/20 05/12/20 11:00 11:00 11:00 WBC 11.2 H RBC 5.17 Hgb 14.4 Hct 41.0 MCV 79 L MCH 27.9 MCHC 35.1 RDW 12.8 Plt Count 329 Seg Neutrophils % 69.7 Sodium 132.5 L Potassium 4.5 Chloride 96 L Carbon Dioxide 25 Anion Gap 12 BUN 10 Creatinine 0.61 Est GFR ( Amer) > 60 Glucose 304 H Lactic Acid 2.5 H Calcium 9.5 Total Bilirubin 0.5 AST 48 Alkaline Phosphatase 59 Total Protein 7.5 Albumin 4.1 Impressions: Abdomen/Pelvis CT 05/12/20 10:04 IMPRESSION: 1. Ill-defined superficial subcutaneous phlegmonous collection along the lower left anterior abdominal wall measuring approximately 2.4 x 1.8 cm with focus of internal gas. No large drainable collection. No intra- abdominal extension. 2. Hepatic steatosis. Assessment and Plan - Diagnosis (1) Abdominal abscess Is this a current diagnosis for this admission?: Yes Plan: Abdominal CT showing abscess in the lower abdomen. Patient has been seen at [place] for this a week ago with incision and drainage performed at that time and discharged with Bactrim and doxycycline. Patient has been evaluated by surgeon who will be taking patient to the OR for I&D. Given patient's diabetes, I will place patient on broad coverage with vancomycin IV and cefepime IV while inpatient. Would avoid clindamycin given his history of C. difficile infection. Awaiting blood cultures N.p.o. until OR (2) Diabetes mellitus Qualifiers: Diabetes mellitus type: other specified (including CAT) Diabetes mellitus care home insulin use: with care home use Diabetes mellitus complication status: with hyperglycemia Qualified Code(s): E13.65 - Other specified diabetes mellitus with hyperglycemia; Z79.4 - [facility] (current) use of insulin Is this a current diagnosis for this admission?: Yes Plan: Recently diagnosed diabetes mellitus. Unknown if type I or type II. Takes Novolin 70/30 40 units twice a day at home. I will put him on 20 units twice a day as he is currently n.p.o -can resume home schedule after the OR once on diet. Sliding scale insulin coverage. Accu-Cheks AC at bedtime. (3) Morbid obesity with BMI of 45.0-49.9, adult Is this a current diagnosis for this admission?: Yes Plan: Dietitian consult placed. Patient will benefit from weight loss and likely from bariatric surgery given his BMI of 48 and comorbid conditions of diabetes and likely sleep apnea. (4) Hypertension Qualifiers: Hypertension type: essential hypertension Qualified Code(s): I10 - Essential (primary) hypertension Is this a current diagnosis for this admission?: Yes Plan: Home regimen: Lisinopril/hydrochlorothiazide daily, hydralazine, amlodipine. We will resume patient's home meds and monitor blood pressure closely. (5) Diabetic neuropathy, painful Is this a current diagnosis for this admission?: Yes Plan: Continue duloxetine and gabapentin (6) Obstructive sleep apnea Is this a current diagnosis for this admission?: Yes Plan: Patient is high risk for FAUSTINO though he has never had a sleep study done. His STOP BANG score is very high at 6. Mallampati score of 4. I have recommended to patient that he should ensure he has a sleep study done as outpatient. I will place him on nocturnal CPAP while in the hospital. - Time Time Spent with patient: 35 or more minutes
[2020-05-12] MEDS: ENOXAPARIN SODIUM INJ 40 MG/0.4 ML DISP.SYRIN SUBCUT SCH (14:43)
[2020-05-12] MEDS ORDERED: METOPROLOL TARTRATE PF/INJ 5 MG/5 ML SDV IV PRN (14:44)
[2020-05-12] MEDS: HUM INSULIN NPH/REG INSULIN HM 100 UNIT/1 ML 3 ML SUBCUT SCH (15:11)
[2020-05-12] MEDS: INSULIN LISPRO 100 UNIT/ML 3 ML VIAL SUBCUT SCH ×2 (15:12→22:16)
[2020-05-12] MEDS ORDERED: NORMAL SALINE 1000 ML 1,000 ML IV PRN (16:48)
[2020-05-12] MEDS ORDERED: MIDAZOLAM 2 MG/2 ML INJ ONE (17:06)
[2020-05-12] MEDS ORDERED: PROPOFOL INJ 200 MG/20 ML VIAL IV ONE ×3 (17:06→17:53)
[2020-05-12] MEDS ORDERED: FENTANYL CITRATE INJ/PF 100 MCG/2 ML AMPUL ONE (17:06)
[2020-05-12] MEDS ORDERED: DEXMEDETOMIDINE INJ 80 MCG/20 ML VIAL IV ONE (17:06)
[2020-05-12] MEDS ORDERED: LIDOCAINE 1%/EPINEPHRINE INJ 20 ML VIAL ONE (17:07)
[2020-05-12] MEDS ORDERED: BUPIVACAINE HCL 0.25 % INJ/PF (2.5 MG/1 ML) 30 ML VIAL ONE (17:08)
[2020-05-12] MEDS ORDERED: LIDOCAINE 0.5% INJ-PF (5 MG/ML) 50 ML SDV ONE (17:12)
[2020-05-12] MEDS: VANCOMYCIN HCL 1,500 MG in DEXTROSE 5%-WATER 250 ML IV SCH ×2 (17:20→19:44)
[2020-05-12] MEDS ORDERED: FENTANYL CITRATE INJ/PF 100 MCG/2 ML AMPUL IV PRN ×3 (17:55)
[2020-05-12] MEDS ORDERED: DIPHENHYDRAMINE HCL 50 MG/ML VIAL IV PRN (17:55)
[2020-05-12] MEDS ORDERED: MEPERIDINE HCL/PF INJ 25 MG/1 ML DISP.SYRIN IV PRN (17:55)
[2020-05-12] MEDS ORDERED: MORPHINE SULFATE 10 MG/ML INJ IV PRN (17:55)
[2020-05-12] MEDS ORDERED: AMLODIPINE BESYLATE 10 MG TABLET PO SCH (18:00)
[2020-05-12] MEDS ORDERED: CLINDAMYCIN 600 MG/D5W RTU 600 MG/50 ML RTUPB IV SCH (18:00)
[2020-05-12] MEDS: MORPHINE SULFATE 10 MG/ML INJ ONE ×2 (18:22→18:27)
[2020-05-12] MEDS: ACETAMINOPHEN 325 MG TABLET PO PRN (20:45)
[2020-05-12] MEDS ORDERED: CEFEPIME 1 GM/D5W RTU 0 GM/0 ML RTUPB IV ONE (21:09)
[2020-05-12] MEDS: GABAPENTIN 400 MG CAPSULE PO SCH (21:12)
[2020-05-12] MEDS: HYDRALAZINE HCL 50 MG TABLET PO SCH (21:12)
--- NOTE | 2020-05-12 21:19 | Operative Report ---
Operative Report DATE OF SURGERY: 05/12/20 PREOPERATIVE DIAGNOSIS: Abscess abdominal wall POSTOPERATIVE DIAGNOSIS: Same OPERATION: Incision and drainage and debridement abdominal wall abscess appears the subcutaneous level SURGEON: ZIYAD ALICEA ANESTHESIA: LMAC TISSUE REMOVED OR ALTERED: Pus and necrotic tissue COMPLICATIONS: None ESTIMATED BLOOD LOSS: 15 cc QUANTITATIVE BLOOD LOSS: 15 INTRAOPERATIVE FINDINGS: Abscess cavity roughly measuring 5 cm wide by 4 cm deep with pus and necrotic tissue PROCEDURE: After adequate IV sedation patient was placed in supine position on a stretcher and the abdomen was then prepped and draped in the usual sterile fashion. Appropriate timeout was then called. Next local anesthesia with half percent lidocaine was infiltrated around abscess cavity on the left lower quadrant. Patient had a previous 1 cm incision above the area with necrotic opening. The necrotic opening was then incised in extending to a total distance of about 5cm. There was some pus noted and this was sent for culture. The abscess cavity which measures about 5 cm wide by about 4 cm deep was then pulse lavaged with about a liter of saline. Further debridement was done using curette. The cavity was then pulse lavaged with another liter saline. It was subsequently packed with almost a bottle full of half inch iodoform gauze. Sterile 4 x 4 and ABD were then used to dress the wound. Patient tolerated procedure well and brought to the recovery room in satisfactory condition.
[2020-05-12] MEDS: CEFEPIME HCL 2 GM in DEXTROSE 5%-WATER 50 ML IV SCH (21:45)
[2020-05-12] MEDS ORDERED: CEFEPIME 2 GM/D5W RTU 2 GM/50 ML RTUPB IV SCH (22:00)
[2020-05-12] MEDS ORDERED: VANCOMYCIN HCL INJ 1000 MG VIAL IV SCH (22:00)
[2020-05-13] MEDS: VANCOMYCIN HCL 1,500 MG in DEXTROSE 5%-WATER 250 ML IV SCH ×2 (02:25→10:24)
[2020-05-13 05:33] LABS: ABSOLUTE BASOPHILS # (AUTO) 0.1 10^3/uL (0.0-0.2); ABSOLUTE EOSINOPHILS # (AUTO) 0.3 10^3/uL (0.0-0.6); ABSOLUTE LYMPHOCYTES (AUTO) 2.1 10^3/uL (0.5-4.7); ABSOLUTE MONOCYTES (AUTO) 0.8 10^3/uL (0.1-1.4); ABSOLUTE NEUT (AUTO) 3.6 10^3/uL (1.7-8.2); BASOPHILS % (AUTO) 0.9 % (0-2); HEMATOCRIT 38.1 % (37.9-51.0); LYMPHOCYTES % (AUTO) 30.6 % (13-45); MEAN CORPUSCULAR HEMOGLOBIN 27.2 pg (27.0-33.4); MEAN CORPUSCULAR HGB CONC 34.2 g/dL (32.0-36.0); MEAN CORPUSCULAR VOLUME 80 fl (80-97); MONOCYTES % (AUTO) 11.7 % (3-13); PLATELET COUNT 312 10^3/uL (150-450); RED BLOOD COUNT 4.78 10^6/uL (4.35-5.55); RED CELL DISTRIBUTION WIDTH 12.7 % (11.5-14.0); SEGMENTED NEUTROPHILS % (AUTO) 52.8 % (42-78); TOTAL CELLS COUNTED % (AUTO) 100 %; WHITE BLOOD COUNT 6.8 10^3/uL (4.0-10.5)
[2020-05-13] MEDS: GABAPENTIN 400 MG CAPSULE PO SCH ×2 (05:35→13:33)
[2020-05-13] MEDS: ACETAMINOPHEN 325 MG TABLET PO PRN ×2 (05:35→13:33)
[2020-05-13 05:48] LABS: ANION GAP 8 (5-19); BLOOD UREA NITROGEN 12 mg/dL (7-20); CALCIUM 8.9 mg/dL (8.4-10.2); CARBON DIOXIDE 24 mmol/L (22-30); CHLORIDE 100 mmol/L (98-107); GLUCOSE 248 mg/dL (75-110); POTASSIUM 4.5 mmol/L (3.6-5.0)
[2020-05-13 06:10] LABS: VANCOMYCIN,TROUGH 13.5 ug/mL (5.0-20.0)
[2020-05-13] MEDS: HUM INSULIN NPH/REG INSULIN HM 100 UNIT/1 ML 3 ML SUBCUT SCH (07:50)
[2020-05-13] MEDS: INSULIN LISPRO 100 UNIT/ML 3 ML VIAL SUBCUT SCH ×2 (07:51→12:40)
[2020-05-13] MEDS ORDERED: HYDROCHLOROTHIAZIDE 12.5 MG TABLET PO SCH (08:00)
[2020-05-13] MEDS ORDERED: HUM INSULIN NPH/REG INSULIN HM 100 UNIT/1 ML 3 ML SUBCUT ONE (08:30)
[2020-05-13] MEDS: HYDRALAZINE HCL 50 MG TABLET PO SCH (09:12)
[2020-05-13] MEDS: ENOXAPARIN SODIUM INJ 40 MG/0.4 ML DISP.SYRIN SUBCUT SCH (09:13)
[2020-05-13] MEDS: CEFEPIME HCL 2 GM in DEXTROSE 5%-WATER 50 ML IV SCH (09:13)
[2020-05-13] MEDS ORDERED: MORPHINE SULFATE 10 MG/ML INJ IV PRN (09:45)
[2020-05-13] MEDS ORDERED: DULOXETINE HCL 20 MG CAPSULE.DR PO SCH (10:00)
[2020-05-13] MEDS ORDERED: LISINOPRIL 10 MG TABLET PO SCH (10:00)
--- NOTE | 2020-05-13 12:29 | PDOC DISCHARGE SUMMARY ---
General - Admit/Disc Date/PCP Admission Date/Primary Care Provider: 05/12/20 14:07 ALBINA OLVERA MD Discharge Date: 05/13/20 - Discharge Diagnosis Final Diagnosis: Abdominal wall abscess - Assessment Summary: Patient underwent incision and drainage of abdominal wall abscess yesterday. Evaluated by surgery today. Recommend patient resume his home regimen for his insulin therapy as well as his antihypertensives. His tachycardia has resolved. Continue antibiotics Patient will follow-up with the [place] surgical [facility] - Additional Information Resuscitation Status: Full Code Discharge Diet: As Tolerated Discharge Activity: Activity As Tolerated Referrals: [facility] [Provider Group] - 05/26/20 10:15 am ALBINA OLVERA MD [Primary Care Provider] - Follow up as needed Home Medications: Amlodipine Besylate [Norvasc 10 mg Tablet] 10 mg PO DAILY 05/12/20 Doxycycline Hyclate [Vibramycin 100 mg Tablet] 100 mg PO Q12 MDD FILLED 05/07 FOR 14 DAY SUPPLY 05/12/20 Duloxetine HCl [Cymbalta 20 Mg Capsule.Dr] 20 mg PO DAILY 05/12/20 Gabapentin 800 mg PO Q8 05/12/20 Hydralazine HCl [Apresoline 50 mg Tablet] 50 mg PO Q12 05/12/20 Insulin NPH Hum/Reg Insulin Hm [Relion Novolin 70-30 Vial] 20 units SUBCUT BIDBS 05/12/20 Lisinopril/Hydrochlorothiazide [Lisinopril-Hctz 20-25 mg Tab] 1 each PO DAILY 05/12/20 Sulfamethoxazole/Trimethoprim [Bactrim Ds Tablet] 2 each PO Q12 MDD FILLED 05/07 FOR 14 DAY SUPPLY 05/12/20 Hospital Course Hospital Course: Underwent formal incision and drainage of abdominal wall abscess on 05/12/2020 and discharge improved on 05/13/2020 Physical Exam Vital Signs: Temp Pulse Resp BP Pulse Ox 98.5 F 95 18 142/65 H 97 05/13/20 07:35 05/13/20 07:35 05/13/20 07:35 05/13/20 07:35 05/13/20 07:35 Intake & Output 05/12/20 05/13/20 05/14/20 06:59 06:59 06:59 Intake Total 4850 1050 Output Total 0 Balance 4850 1050 Weight 189.8 kg 189.8 kg Results Laboratory Results: WBC 6.8 10^3/uL (4.0-10.5) 05/13/20 04:54 RBC 4.78 10^6/uL (4.35-5.55) 05/13/20 04:54 Hgb 13.0 g/dL (13.5-17.0) L 05/13/20 04:54 Hct 38.1 % (37.9-51.0) 05/13/20 04:54 MCV 80 fl (80-97) 05/13/20 04:54 MCH 27.2 pg (27.0-33.4) 05/13/20 04:54 MCHC 34.2 g/dL (32.0-36.0) 05/13/20 04:54 RDW 12.7 % (11.5-14.0) 05/13/20 04:54 Plt Count 312 10^3/uL (150-450) 05/13/20 04:54 Lymph % (Auto) 30.6 % (13-45) 05/13/20 04:54 Howard % (Auto) 11.7 % (3-13) 05/13/20 04:54 Eos % (Auto) 4.0 % (0-6) 05/13/20 04:54 Baso % (Auto) 0.9 % (0-2) 05/13/20 04:54 Absolute Neuts (auto) 3.6 10^3/uL (1.7-8.2) 05/13/20 04:54 Absolute Lymphs (auto) 2.1 10^3/uL (0.5-4.7) 05/13/20 04:54 Absolute Monos (auto) 0.8 10^3/uL (0.1-1.4) 05/13/20 04:54 Absolute Eos (auto) 0.3 10^3/uL (0.0-0.6) 05/13/20 04:54 Absolute Basos (auto) 0.1 10^3/uL (0.0-0.2) 05/13/20 04:54 Seg Neutrophils % 52.8 % (42-78) 05/13/20 04:54 Sodium 132.4 mmol/L (137-145) L 05/13/20 04:54 Potassium 4.5 mmol/L (3.6-5.0) 05/13/20 04:54 Chloride 100 mmol/L (98-107) 05/13/20 04:54 Carbon Dioxide 24 mmol/L (22-30) 05/13/20 04:54 Anion Gap 8 (5-19) 05/13/20 04:54 BUN 12 mg/dL (7-20) 05/13/20 04:54 Creatinine 0.60 mg/dL (0.52-1.25) 05/13/20 04:54 Est GFR ( Amer) > 60 (>60) 05/13/20 04:54 Est GFR (MDRD) Non-Af > 60 (>60) 05/13/20 04:54 Glucose 248 mg/dL (75-110) H 05/13/20 04:54 POC Glucose 298 mg/dL (70-110) H 05/12/20 21:47 Lactic Acid 1.8 mmol/L (0.7-2.1) 05/12/20 23:40 Calcium 8.9 mg/dL (8.4-10.2) 05/13/20 04:54 Magnesium 1.7 mg/dL (1.6-2.3) 05/13/20 04:54 Total Bilirubin 0.5 mg/dL (0.2-1.3) 05/12/20 11:00 Direct Bilirubin 0.0 mg/dL (0.0-0.4) 05/12/20 11:00 Neonat Total Bilirubin Not Reportable 05/12/20 11:00 Neonat Direct Bilirubin Not Reportable 05/12/20 11:00 Neonat Indirect Bili Not Reportable 05/12/20 11:00 AST 48 U/L (17-59) 05/12/20 11:00 ALT 65 U/L (<50) H 05/12/20 11:00 Alkaline Phosphatase 59 U/L (38-126) 05/12/20 11:00 Total Protein 7.5 g/dL (6.3-8.2) 05/12/20 11:00 Albumin 4.1 g/dL (3.5-5.0) 05/12/20 11:00 Time Trough Drawn 0454 05/13/20 04:54 Vancomycin Trough 13.5 ug/mL (5.0-20.0) 05/13/20 04:54 SARS-CoV-2 (PCR) NEGATIVE (NEGATIVE) 05/12/20 13:45 Impressions: Abdomen/Pelvis CT 05/12/20 10:04 IMPRESSION: 1. Ill-defined superficial subcutaneous phlegmonous collection along the lower left anterior abdominal wall measuring approximately 2.4 x 1.8 cm with focus of internal gas. No large drainable collection. No intra- abdominal extension. 2. Hepatic steatosis. Plan Health Concerns: Diabetes mellitus and sleep apnea Plan of Treatment: Continue p.o. antibiotics and follow-up surgical clinic in 2 weeks Goals: Healed I&D site Time Spent: Less than 30 Minutes
[2020-05-13 12:56] VITALS: BP 141/67
--- NOTE | 2020-05-13 13:22 | EKG REPORT ---
SEVERITY:- ABNORMAL ECG - SINUS TACHYCARDIA NONSPECIFIC INTRAVENTRICULAR CONDUCTION DELAY : Confirmed by: Mariano Morley MD 13-May-2020 13:21:37
--- NOTE | 2020-05-13 15:45 | PDOC PROGRESS REPORT ---
Subjective Progress Note for:: 05/13/20 Subjective:: Patient is doing well. Has abdominal pain which he complained of this morning. Reason For Visit: ABDOMINAL ABSCESS,SEPSIS,PHLEGMON Physical Exam Vital Signs: Temp Pulse Resp BP Pulse Ox 98.5 F 95 18 141/67 H 97 05/13/20 12:54 05/13/20 12:54 05/13/20 12:54 05/13/20 12:54 05/13/20 12:54 Intake & Output 05/12/20 05/13/20 05/14/20 06:59 06:59 06:59 Intake Total 4850 1050 Output Total 0 Balance 4850 1050 Weight 189.8 kg 189.8 kg General appearance: PRESENT: no acute distress, cooperative Neck exam: ABSENT: JVD Respiratory exam: PRESENT: clear to auscultation dale, unlabored. ABSENT: tachypnea, wheezes Cardiovascular exam: PRESENT: +S1, +S2 GI/Abdominal exam: PRESENT: soft, tenderness. ABSENT: distended, firm, guarding, rebound, rigid Neurological exam: PRESENT: alert, awake Results Laboratory Results: 05/13/20 04:54 05/13/20 04:54 05/12/20 05/12/20 05/13/20 20:46 23:40 04:54 WBC 6.8 RBC 4.78 Hgb 13.0 L Hct 38.1 MCV 80 MCH 27.2 MCHC 34.2 RDW 12.7 Plt Count 312 Seg Neutrophils % 52.8 Sodium Potassium Chloride Carbon Dioxide Anion Gap BUN Creatinine Est GFR ( Amer) Glucose Lactic Acid 1.7 1.8 Calcium Magnesium 05/13/20 04:54 WBC RBC Hgb Hct MCV MCH MCHC RDW Plt Count Seg Neutrophils % Sodium 132.4 L Potassium 4.5 Chloride 100 Carbon Dioxide 24 Anion Gap 8 BUN 12 Creatinine 0.60 Est GFR ( Amer) > 60 Glucose 248 H Lactic Acid Calcium 8.9 Magnesium 1.7 Impressions: Abdomen/Pelvis CT 05/12/20 10:04 IMPRESSION: 1. Ill-defined superficial subcutaneous phlegmonous collection along the lower left anterior abdominal wall measuring approximately 2.4 x 1.8 cm with focus of internal gas. No large drainable collection. No intra- abdominal extension. 2. Hepatic steatosis. 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 Diabetes mellitus complication status: with hyperglycemia Qualified Code(s): E13.65 - Other specified diabetes mellitus with hyperglycemia; Z79.4 - terminal worker (current) use of insulin Is this a current diagnosis for this admission?: Yes (3) Morbid obesity with BMI of 45.0-49.9, adult Is this a current diagnosis for this admission?: Yes (4) Hypertension Qualifiers: Hypertension type: essential hypertension Qualified Code(s): I10 - Essential (primary) hypertension Is this a current diagnosis for this admission?: Yes (5) Diabetic neuropathy, painful Is this a current diagnosis for this admission?: Yes (6) Obstructive sleep apnea Is this a current diagnosis for this admission?: Yes (7) Sinus tachycardia Is this a current diagnosis for this admission?: Yes - Plan Summary Summary: Patient underwent incision and drainage of abdominal wall abscess yesterday. Evaluated by surgery today. Recommend patient resume his home regimen for his insulin therapy as well as his antihypertensives. His tachycardia has resolved. Continue antibiotics Patient will follow-up with the [place] surgical clinic - Time Time Spent with patient: Less than 15 minutes
[2020-05-13] MEDS ORDERED: HUM INSULIN NPH/REG INSULIN HM 100 UNIT/1 ML 3 ML SUBCUT SCH (16:00)
== END 2020-05-13 15:11 | disposition home or self-care (01) ==
LOC: ER 08:05 → EH 14:07 → 4N 19:22
PROVIDERS: ATTEND Surgery
DX: L02.211 Cutaneous abscess of abdominal wall (principal); E11.40 Type 2 diabetes mellitus with diabetic neuropathy, unspecified; E11.65 Type 2 diabetes mellitus with hyperglycemia; E66.01 Morbid (severe) obesity due to excess calories; I10 Essential (primary) hypertension; A41.9 Sepsis, unspecified organism; G47.33 Obstructive sleep apnea (adult) (pediatric); M17.0 Bilateral primary osteoarthritis of knee; Z68.42 Body mass index [BMI] 45.0-49.9, adult; Z79.899 Other long term (current) drug therapy; Z79.4 Long term (current) use of insulin; Z87.891 Personal history of nicotine dependence; Z03.818 Encounter for observation for suspected exposure to other biological agents ruled out; Z86.19 Personal history of other infectious and parasitic diseases
CPT/HCPCS: 96376; 99284; 96361; 96375; 96365; 96367; 36415 ×2; 87040; 87070; 87205; 82962 ×2; 83605; 83735; 85025 ×2; 87635; 87075; 80048; 80053; 80202; 74177; 93005; 93010; 94660 ×2; 11005; J2250; J3010; J1815 ×3; J3490 ×4; J2270 ×2; J0692 ×2; J2405; J7060 ×4; J7030; J7120; J2704; J3370 ×2; C9803; 800; G0378

== ENCOUNTER → 2020-07-06 | Outpatient (CLI) | payer BC ==
--- NOTE | 2020-07-06 13:07 | RADIOLOGY REPORT (SQ) ---
EXAM DESCRIPTION: CT ABD/PELVIS WITH IV ONLY IMAGES COMPLETED DATE/TIME: 07/06/2020 12:12 pm REASON FOR STUDY: R10.11 RIGHT UPPER QUADRANT PAIN R10.11 RIGHT UPPER QUADRANT PAIN COMPARISON: 05/12/2020 TECHNIQUE: CT scan of the abdomen and pelvis performed using helical scanning technique with dynamic intravenous contrast injection. No oral contrast. Images reviewed with lung, soft tissue, and bone windows. Reconstructed coronal and sagittal MPR images reviewed. Delayed images for evaluation of the urinary system also acquired. All images stored on PACS. All CT scanners at this facility use dose modulation, iterative reconstruction, and/or weight based d osing when appropriate to reduce radiation dose to as low as reasonably achievable (ALARA). [facility]: Dose Right [facility]: CareDose [facility]: Dose Right [facility]: Teradose 4D [facility]: Noosh CONTRAST TYPE AND DOSE: contrast/concentration: Isovue 350.00 mmol/ml; Total Contrast Delivered: 99. 0 ml; Total Saline Delivered: 52.0 ml RENAL FUNCTION: Creatinine 0.8 RADIATION DOSE: CT Rad equipment meets quality standard of care and radiation dose reduction techniq ues were employed. CTDIvol: 22.7 - 39.2 mGy. DLP: 3876 mGy-cm.. LIMITATIONS: None. FINDINGS: LOWER CHEST: No significant findings. No nodules or infiltrates. LIVER: The liver is diffusely hypoattenuating. No masses. SPLEEN: Normal size. No focal lesions. PANCREAS: No masses. No significant calcifications. No adjacent inflammation or peripancreatic fluid collections. Pancreatic duct not dilated. GALLBLADDER: No identified stones by CT criteria. No inflammatory changes to suggest cholecystitis. ADRENAL GLANDS: No significant masses or asymmetry. RIGHT KIDNEY AND URETER: No solid masses. No significant calcifications. No hydronephrosis or hyd roureter. LEFT KIDNEY AND URETER: No solid masses. No significant calcifications. No hydronephrosis or hydr oureter. AORTA AND VESSELS: No aneurysm. No dissection. Renal arteries, SMA, celiac without stenosis. RETROPERITONEUM: No retroperitoneal adenopathy, hemorrhage or masses. BOWEL AND PERITONEAL CAVITY: No masses or inflammatory changes. No free fluid or peritoneal masses. APPENDIX: Normal. PELVIS: No mass. No free fluid. Normal bladder. ABDOMINAL WALL: No masses. No hernias. BONES: No significant or acute findings. OTHER: No other significant finding. IMPRESSION: Hepatic steatosis. No other significant finding in the abdomen pelvis. TECHNICAL DOCUMENTATION: JOB ID: [id number] Quality ID # [id number]: Final reports with documentation of one or more dose reduction techniques (e.g., Au tomated exposure control, adjustment of the mA and/or kV according to patient size, use of iterative reconstruction technique) 2010 [employer]- All Rights Reserved Reading location - IP/workstation name: [email or web address]
== END ==
LOC: RAD 11:39
PROVIDERS: ATTEND Internal Medicine
DX: R10.11 Right upper quadrant pain (principal)
CPT/HCPCS: 74177; 82565

== ENCOUNTER → 2020-11-23 | Outpatient (CLI) | payer BC ==
--- NOTE | 2020-11-23 12:25 | RADIOLOGY REPORT (SQ) ---
EXAM DESCRIPTION: NM GASTRIC EMPTYING STUDY IMAGES COMPLETED DATE/TIME: 11/23/2020 11:43 am REASON FOR STUDY: GENERALIZED ABDOMINAL PAIN/NAUSEA R10.84 GENERALIZED ABDOMINAL PAIN R11.0 NAUSEA COMPARISON: None. RADIONUCLIDE AND DOSE: 2 millicuries Tc-99m Sulfur Colloid. Fried egg sandwich The route of agent administration: Oral. TECHNIQUE: 1 minute serial static imaging performed at time of meal, 1 hour, 2 hours, 3 hours, and 4 hours as needed. Once stomach reaches 90% emptying, the test is complete. Image intensity values pl otted with respect to time with linear regression algorithm. LIMITATIONS: None. FINDINGS: Patient was observed for 4 hours. Immediate post meal serves as baseline. Gastric emptying at 30 minutes was 9.5%. Gastric emptying at 60 minutes was 19% Gastric emptying at 90 minutes was 28.4%. Gastric emptying at 120 minutes was 37.9%. Gastric emptying at 240 minutes was 75.8%. Normal values: 60 minutes: 30-90% retained. If less than 30%, abnormally rapid emptying. If greater than 90%, delaye d gastric emptying. 120 minutes: <60% retained. If greater than 60%, delayed gastric emptying. 240 minutes: <10% retained. If greater than 10%, delayed gastric emptying. IMPRESSION: Delayed gastric emptying. TECHNICAL DOCUMENTATION: JOB ID: [id number] 2010 [employer]- All Rights Reserved rev Reading location - IP/workstation name: [email or web address]
== END ==
LOC: RAD 07:09
PROVIDERS: ATTEND Internal Medicine Gastroenterology
DX: R10.84 Generalized abdominal pain (principal); R11.0 Nausea
CPT/HCPCS: 78264; A9541